=== PATIENT | male | born 1965 | race Caucasian/White ===

== ENCOUNTER 2016-07-22 15:53 | Inpatient (IN) | payer OTHER ==
[~2016-07-22] VITALS: Ht 193 cm; Wt 118.8 kg
[~2016-07-22 15:53] MED LIST: METH10TA PO
[2016-07-22 15:58] VITALS: BP 185/98; PULSE 88; RESP 22; TEMP 98.3
[2016-07-22] MEDS ORDERED: XANA1TAB2 PO (16:07)
[2016-07-22] MEDS ORDERED: METH10TA PO (16:07)
[2016-07-22] MEDS ORDERED: MORPHINE SULFATE 8 MG/ML INJ IV PUSH ONE (16:15)
[2016-07-22] MEDS ORDERED: ONDANSETRON HCL 4 MG/2 ML VIAL IV PUSH ONE (16:15)
[2016-07-22] MEDS ORDERED: SODIUM CHLORIDE 0.9% FLUSH 5 ML FLUSH IVF PRN ×2 (16:15→18:45)
[2016-07-22] MEDS ORDERED: PROPOFOL 1000 MG/100 ML BTL IV ONE (16:15)
--- NOTE | 2016-07-22 16:15 | PD ---
HPI Chief Complaint: Fall Time Seen by Provider: 16:00 Travel History International Travel<30 days: No Contact w/Intl Traveler<30days: No Traveled to known affect area: No History of Present Illness HPI 51-year-old male presents via EMS for evaluation after a fall. He reports that prior to arrival he was standing on the roof of his motorhome when he fell off of the roof, approximately 10-13 feet, landing on his back. He reports that he landed on some bricks. He denies loss of consciousness. He is complaining of severe pain in left ankle which is throbbing, constant, worse with movement. He also has pain in his mid back and neck and left rib cage. Denies pain in the arms or right leg. Denies loss of consciousness. He reports that morphine works well for pain. He received 10 mg of morphine prior to arrival. He has no other complaints. PFSH Past Medical History Arthritis: No Asthma: No Anxiety: Yes Depression: Yes Heart Rhythm Problems: No Cancer: No Cardiovascular Problems: No High Cholesterol: No Chest Pain: Yes Congestive Heart Failure: No COPD: Yes Cerebrovascular Accident: No Diminished Hearing: No Gastrointestinal Disorders: Yes GERD: Yes Genitourinary: Yes Headaches: No Hepatitis: Yes (HEP C) Hiatal Hernia: No Hypertension: Yes Kidney Stones: No Musculoskeletal: Yes Psychiatric: No Reproductive: No Respiratory: No Migraines: No Pancreatitis: Yes Renal Failure: Yes (R/T OVERDOSE) Seizures: Yes (PAST ALCOHOL/DRUG WITHDRAWL) Sleep Apnea: No Ulcer: No Tetanus Vaccination: < 5 Years PNEUMOCCOCAL Vaccine (Year): 2 Past Surgical History Surgical History: No Previous Surgery Other Surgery: No Social History Alcohol Use: Yes (LAST DRINK 2 DAYS AGO) Tobacco Use: Yes (1 PPD) Substance Use: Yes (on methadone) Allergies-Medications (Allergen,Severity, Reaction): Coded Allergies: No Known Allergies (Verified , 07/22/16) Reported Meds & Prescriptions Reported Meds & Active Scripts Active Reported Xanax (Alprazolam) 1 Mg Tab 1 Mg PO Q6H PRN Methadone (Methadone HCl) 10 Mg Tab 130 Mg PO DAILY Review of Systems Except as stated in HPI: all other systems reviewed are Neg Physical Exam Narrative GENERAL: Well-developed well-nourished male who appears uncomfortable. Cervical collar in place, laying on backboard. The patient was log rolled off the backboard using spinal precautions. SKIN: Warm and dry. There is an area of ecchymosis in the left flank region of the back. HEAD: Atraumatic. Normocephalic. EYES: Pupils equal and round. No scleral icterus. No injection or drainage. ENT: No nasal bleeding or discharge. Mucous membranes pink and moist. NECK: Trachea midline. No JVD. CARDIOVASCULAR: Regular rate and rhythm. No murmur appreciated. RESPIRATORY: No accessory muscle use. Clear to auscultation. Breath sounds equal bilaterally. GASTROINTESTINAL: Abdomen soft, non-tender, nondistended. Hepatic and splenic margins not palpable. MUSCULOSKELETAL: Obvious deformity to left ankle joint. There is tenderness to palpation along the neck and back. There is some tenderness to palpation to the left posterior rib cage. NEUROLOGICAL: Awake and alert. No obvious cranial nerve deficits. Motor grossly within normal limits. Normal speech. Data Data Last Documented VS Vital Signs Date Time Temp Pulse Resp B/P Pulse Ox O2 Delivery O2 Flow Rate FiO2 07/22/16 16:59 82 20 160/87 98 Nasal Cannula 2 07/22/16 15:58 98.3 Orders Ankle, Complete ([id number]) (07/22/16 ) Complete Blood Count With Diff (07/22/16 16:10) Prothrombin Time / Inr (Pt) (07/22/16 16:10) Act Partial Throm Time (Ptt) (07/22/16 16:10) Type And Screen (07/22/16 16:10) Chest, Single Ap (07/22/16 16:10) Pelvis, Ap Only (Routine) (07/22/16 16:10) Ct Brain W/O Iv Contrast(Rout) (07/22/16 16:10) Ct Cerv Spine W/O Contrast (07/22/16 16:10) Ct Abd/Pel W Iv Contrast(Rout) (07/22/16 16:10) Ct Thorax/ Chest W Iv Contrast (07/22/16 16:10) Ct Thor Spine W/O Contrast (07/22/16 16:10) Ct Lumb Spine W/O Contrast (07/22/16 16:10) Iv Access Insert/Monitor (07/22/16 16:10) Ecg Monitoring (07/22/16 16:10) Oximetry (07/22/16 16:10) Oxygen Administration (07/22/16 16:10) Sodium Chloride 0.9% Flush (Ns Flush) (07/22/16 16:15) Morphine Inj (Morphine Inj) (07/22/16 16:15) Ondansetron Inj (Zofran Inj) (07/22/16 16:15) Comprehensive Metabolic Panel (07/22/16 16:10) Propofol 1000 Mg/100 Ml Inj (Diprivan 10 (07/22/16 16:15) Ankle, Limited (Ap&Lat) (07/22/16 ) Splint Or Brace Apply/Monitor (07/22/16 16:49) Fiberglass Sugartong Sp Ad Sl (07/22/16 ) Ice Cuff (07/22/16 ) Fiberglass Short Leg Splint Ad (07/22/16 ) Admit Order (Ed Use Only) (07/22/16 18:37) Labs Laboratory Tests Test 07/22/16 16:00 White Blood Count 4.9 TH/MM3 Red Blood Count 4.34 MIL/MM3 Hemoglobin 14.7 GM/DL Hematocrit 42.1 % Mean Corpuscular Volume 97.0 FL Mean Corpuscular Hemoglobin 34.0 PG Mean Corpuscular Hemoglobin 35.0 % Concent Red Cell Distribution Width 13.7 % Platelet Count 84 TH/MM3 Mean Platelet Volume 7.1 FL Neutrophils (%) (Auto) 49.7 % Lymphocytes (%) (Auto) 35.5 % Monocytes (%) (Auto) 9.8 % Eosinophils (%) (Auto) 3.9 % Basophils (%) (Auto) 1.1 % Neutrophils # (Auto) 2.4 TH/MM3 Lymphocytes # (Auto) 1.7 TH/MM3 Monocytes # (Auto) 0.5 TH/MM3 Eosinophils # (Auto) 0.2 TH/MM3 Basophils # (Auto) 0.1 TH/MM3 CBC Comment AUTO DIFF Differential Comment AUTO DIFF CONFIRMED Platelet Estimate LOW Platelet Morphology Comment NORMAL Red Cell Morphology Comment NORMAL Prothrombin Time 13.4 SEC Prothromb Time International 1.2 RATIO Ratio Activated Partial 28.5 SEC Thromboplast Time Sodium Level 132 MEQ/L Potassium Level 3.6 MEQ/L Chloride Level 94 MEQ/L Carbon Dioxide Level 32.6 MEQ/L Anion Gap 5 MEQ/L Blood Urea Nitrogen 6 MG/DL Creatinine 0.70 MG/DL Estimat Glomerular Filtration 118 ML/MIN Rate Random Glucose 117 MG/DL Calcium Level 7.9 MG/DL Total Bilirubin 0.6 MG/DL Aspartate Amino Transf 78 U/L (AST/SGOT) Alanine Aminotransferase 66 U/L (ALT/SGPT) Alkaline Phosphatase 82 U/L Total Protein 8.1 GM/DL Albumin 3.1 GM/DL Blood Type O POSITIVE Antibody Screen NEGATIVE Blood Bank Comment MDM Medical Decision Making Medical Screen Exam Complete: Yes Emergency Medical Condition: Yes Medical Record Reviewed: Yes Interpretation(s) Left ankle x-ray reveals trimalleolar fracture/dislocation. Postreduction x- ray reveals improvement in alignment of the fracture. CT brain, cervical spine revealed no acute abnormalities Chest x-ray, pelvis x-ray revealed no acute abnormalities CT abdomen and pelvis CT thoracic spine CT thorax CT lumbar spine Differential Diagnosis Ankle fracture, dislocation, retroperitoneal hematoma, contusion, rib fracture, intra-abdominal organ injury, pneumothorax, hemothorax, spinal fracture, spinal cord injury Narrative Course 51-year-old male presents after falling off of a roof and landing on his back. He has an obvious fracture/dislocation to the left ankle. The fracture/ dislocation was reduced and postreduction x-ray reveals improvement in alignment of the fracture. He had good pulses and good sensation postreduction. On examination he does have an area of ecchymosis on the left flank region of the back. He also has some tenderness to palpation along the spine. Therefore CT imaging of the brain, cervical spine, thoracic spine, lumbar spine, thorax and abdomen and pelvis have been ordered. Imaging studies reveal left 11th posterior rib fracture, transverse process fractures L2 and L3. The patient was admitted to the trauma service with consultation to the orthopedist Dr. Roe. Diagnosis Primary Impression: Fx lumbar vertebra-closed Qualified Code: S32.029A - Closed fracture of second lumbar vertebra, unspecified fracture morphology, initial encounter Additional Impressions: Closed left ankle fracture Qualified Code: S82.892A - Closed left ankle fracture, initial encounter Rib fracture Qualified Code: S22.32XA - Closed fracture of one rib of left side, initial encounter Admitting Information Admitting Physician Requests: Admit Cayden Bustos Jul 22, 2016 16:15
[2016-07-22 16:32] LABS: AUTOMATED NEUTROPHIL # 2.4 TH/MM3 (1.8-7.7); BASOPHIL # 0.1 TH/MM3 (0-0.2); BASOPHIL % 1.1 % (0.0-2.0); EOSINOPHIL # 0.2 TH/MM3 (0-0.4); EOSINOPHIL % 3.9 % (0.0-4.0); HEMATOCRIT 42.1 % (39.0-51.0); LYMPH % 35.5 % (9.0-44.0); LYMPHOCYTE # 1.7 TH/MM3 (1.0-4.8); MONO % 9.8 % (0.0-8.0); NEUT % 49.7 % (16.0-70.0); PLATELET COUNT 84 TH/MM3 (150-450); RED BLOOD COUNT 4.34 MIL/MM3 (4.50-5.90); RED CELL DISTRIBUTION WIDTH 13.7 % (11.6-17.2); WHITE BLOOD COUNT 4.9 TH/MM3 (4.0-11.0)
[2016-07-22 16:35] LABS: HEMO FLAGS AUTO DIFF
[2016-07-22 16:41] LABS: APTT (PATIENT) 28.5 SEC (24.3-30.1); INTERNATIONAL NORMALIZED RATIO 1.2 RATIO; PROTHROMBIN TIME - PATIENT 13.4 SEC (9.8-11.6)
[2016-07-22 16:45] VITALS: O2SAT 98
[2016-07-22 16:55] LABS: ALT (GPT) 66 U/L (12-78); ANION GAP 5 MEQ/L (5-15); AST (GOT) 78 U/L (15-37); BICARBONATE 32.6 MEQ/L (21.0-32.0); BLOOD UREA NITROGEN 6 MG/DL (7-18); CHLORIDE 94 MEQ/L (98-107); GLOMERULAR FILTRATION RATE 118 ML/MIN (>89); POTASSIUM 3.6 MEQ/L (3.5-5.1); SODIUM (NA) 132 MEQ/L (136-145)
[2016-07-22 16:57] LABS: ALKALINE PHOSPHATASE 82 U/L (45-117); TOTAL BILIRUBIN ADULT 0.6 MG/DL (0.2-1.0)
[2016-07-22 16:59] VITALS: BP 160/87; PULSE 82; RESP 20; O2SAT 98
[2016-07-22 17:07] LABS: PLATELET ESTIMATE SMEAR LOW (NORMAL); PLATELET MORPHOLOGY NORMAL (NORMAL); SCAN/DIFF AUTO DIFF CONFIRMED
--- NOTE | 2016-07-22 17:07 | PD ---
Data Data Last Documented VS Vital Signs Date Time Temp Pulse Resp B/P Pulse Ox O2 Delivery O2 Flow Rate FiO2 07/22/16 16:59 82 20 160/87 98 Nasal Cannula 2 07/22/16 15:58 98.3 Orders Ankle, Complete ([id number]) (07/22/16 ) Complete Blood Count With Diff (07/22/16 16:10) Prothrombin Time / Inr (Pt) (07/22/16 16:10) Act Partial Throm Time (Ptt) (07/22/16 16:10) Type And Screen (07/22/16 16:10) Chest, Single Ap (07/22/16 16:10) Pelvis, Ap Only (Routine) (07/22/16 16:10) Ct Brain W/O Iv Contrast(Rout) (07/22/16 16:10) Ct Cerv Spine W/O Contrast (07/22/16 16:10) Ct Abd/Pel W Iv Contrast(Rout) (07/22/16 16:10) Ct Thorax/ Chest W Iv Contrast (07/22/16 16:10) Ct Thor Spine W/O Contrast (07/22/16 16:10) Ct Lumb Spine W/O Contrast (07/22/16 16:10) Iv Access Insert/Monitor (07/22/16 16:10) Ecg Monitoring (07/22/16 16:10) Oximetry (07/22/16 16:10) Oxygen Administration (07/22/16 16:10) Sodium Chloride 0.9% Flush (Ns Flush) (07/22/16 16:15) Morphine Inj (Morphine Inj) (07/22/16 16:15) Ondansetron Inj (Zofran Inj) (07/22/16 16:15) Comprehensive Metabolic Panel (07/22/16 16:10) Propofol 1000 Mg/100 Ml Inj (Diprivan 10 (07/22/16 16:15) Ankle, Limited (Ap&Lat) (07/22/16 ) Splint Or Brace Apply/Monitor (07/22/16 16:49) Fiberglass Sugartong Sp Ad Sl (07/22/16 ) Ice Cuff (07/22/16 ) Fiberglass Short Leg Splint Ad (07/22/16 ) Admit Order (Ed Use Only) (07/22/16 18:37) Labs Laboratory Tests Test 07/22/16 16:00 White Blood Count 4.9 TH/MM3 Red Blood Count 4.34 MIL/MM3 Hemoglobin 14.7 GM/DL Hematocrit 42.1 % Mean Corpuscular Volume 97.0 FL Mean Corpuscular Hemoglobin 34.0 PG Mean Corpuscular Hemoglobin 35.0 % Concent Red Cell Distribution Width 13.7 % Platelet Count 84 TH/MM3 Mean Platelet Volume 7.1 FL Neutrophils (%) (Auto) 49.7 % Lymphocytes (%) (Auto) 35.5 % Monocytes (%) (Auto) 9.8 % Eosinophils (%) (Auto) 3.9 % Basophils (%) (Auto) 1.1 % Neutrophils # (Auto) 2.4 TH/MM3 Lymphocytes # (Auto) 1.7 TH/MM3 Monocytes # (Auto) 0.5 TH/MM3 Eosinophils # (Auto) 0.2 TH/MM3 Basophils # (Auto) 0.1 TH/MM3 CBC Comment AUTO DIFF Differential Comment AUTO DIFF CONFIRMED Platelet Estimate LOW Platelet Morphology Comment NORMAL Red Cell Morphology Comment NORMAL Prothrombin Time 13.4 SEC Prothromb Time International 1.2 RATIO Ratio Activated Partial 28.5 SEC Thromboplast Time Sodium Level 132 MEQ/L Potassium Level 3.6 MEQ/L Chloride Level 94 MEQ/L Carbon Dioxide Level 32.6 MEQ/L Anion Gap 5 MEQ/L Blood Urea Nitrogen 6 MG/DL Creatinine 0.70 MG/DL Estimat Glomerular Filtration 118 ML/MIN Rate Random Glucose 117 MG/DL Calcium Level 7.9 MG/DL Total Bilirubin 0.6 MG/DL Aspartate Amino Transf 78 U/L (AST/SGOT) Alanine Aminotransferase 66 U/L (ALT/SGPT) Alkaline Phosphatase 82 U/L Total Protein 8.1 GM/DL Albumin 3.1 GM/DL Blood Type O POSITIVE Antibody Screen NEGATIVE Blood Bank Comment [facility] Supervised Visit with ADALI: Yes Procedures Procedure Narrative Moderate Sedation After the risks and benefits are discussed for the left ankle reduction, sedation was performed. The patient was placed on a athletic monitor and pulse oximetry. An Ambu bag dissection was immediately available at bedside. The patient was monitored by the nurse. Oxygen saturation, heart rate and blood pressure monitored. Procedural sedation was achieved using 100 mg of propofol. The patient was observed until awake and alert. Procedural sedation time in attendance was 15 minutes. Deborah aZman DO Jul 22, 2016 17:07
[2016-07-22] MEDS ORDERED: IOHEXOL 350 MG/ML 10 ML VIAL (for RAD DIAG) IV ONE (17:40)
--- NOTE | 2016-07-22 17:44 | RADRPT ---
EXAM DATE/TIME: 07/22/2016 16:13 [facility] COMPARISON: No previous studies available for comparison. INDICATIONS : Left Ankle Deformation and Pain after fall from roof. MEDICAL HISTORY : Unobtainable. SURGICAL HISTORY : Unobtainable. ENCOUNTER: Initial ACUITY: 1 day PAIN SCORE: Non-responsive. LOCATION: Left Ankle. FINDINGS: Three view exam was performed of the left ankle. There is medial dislocation of the distal tibia at t he tibiotalar joint with fractures through the medial malleolus, lateral malleolus and posterior mall eolus region. CONCLUSION: 1. Trimalleolar fracture dislocation of the left ankle. Rohit Manning MD on July 22, 2016 at 17:42 Board Certified Radiologist. This report was verified electronically.
--- NOTE | 2016-07-22 17:45 | RADRPT ---
EXAM DATE/TIME: 07/22/2016 16:20 [facility] COMPARISON: No previous studies available for comparison. INDICATIONS : Evaluate for Pelvis injury after fall from roof. MEDICAL HISTORY : Unobtainable. SURGICAL HISTORY : Unobtainable. ENCOUNTER: Initial ACUITY: 1 day PAIN SCORE: Non-responsive. LOCATION: Bilateral Pelvis. FINDINGS: A single frontal view of the pelvis demonstrates no evidence of fracture. The bony pelvic ring is in tact. Bony mineralization is normal. The soft tissues are intact. CONCLUSION: Normal examination for a patient of this age. Rohit Manning MD on July 22, 2016 at 17:43 Board Certified Radiologist. This report was verified electronically.
--- NOTE | 2016-07-22 17:45 | RADRPT ---
EXAM DATE/TIME: 07/22/2016 16:31 [facility] COMPARISON: No previous studies available for comparison. INDICATIONS : Evaluate for Chest Injury after fall from roof. MEDICAL HISTORY : Unobtainable. SURGICAL HISTORY : Unobtainable. ENCOUNTER: Initial ACUITY: 1 day PAIN SCORE: Non-responsive. LOCATION: Bilateral chest FINDINGS: A single view of the chest demonstrates the lungs to be symmetrically aerated without evidence of mas s, infiltrate or effusion. The cardiomediastinal contours are unremarkable. Osseous structures are intact. CONCLUSION: Normal examination for a patient of this age. Rohit Manning MD on July 22, 2016 at 17:44 Board Certified Radiologist. This report was verified electronically.
--- NOTE | 2016-07-22 17:57 | RADRPT ---
EXAM DATE/TIME: 07/22/2016 16:58 [facility] COMPARISON: No previous studies available for comparison. INDICATIONS : Post reduction of left ankle. MEDICAL HISTORY : None. SURGICAL HISTORY : None. ENCOUNTER: Initial ACUITY: 1 day PAIN SCORE: 10/10 LOCATION: Bilateral left ankle. FINDINGS: There is partial reduction of the previous dislocation. The medial joint remains abnormally widened a nd there is residual subluxation medially and anteriorly. CONCLUSION: 1. Improvement in alignment at the trimalleolar fracture dislocation as above. Rohit Manning MD on July 22, 2016 at 17:54 Board Certified Radiologist. This report was verified electronically.
--- NOTE | 2016-07-22 18:12 | RADRPT ---
EXAM DATE/TIME: 07/22/2016 17:34 [facility] COMPARISON: No previous studies available for comparison. INDICATIONS : Trauma. Fell 12-15 feet. RADIATION DOSE: 68.28 CTDIvol (mGy) MEDICAL HISTORY : Seizures. Chronic obstructive pulmonary disease. Pancreatitis.Renal failure. Hep C. Hypertension. SURGICAL HISTORY : None. ENCOUNTER: Initial ACUITY: 1 day PAIN SCALE: 4/10 LOCATION: cranial TECHNIQUE: Multiple contiguous axial images were obtained of the head. Using automated exposure control and adj ustment of the mA and/or kV according to patient size, radiation dose was kept as low as reasonably a chievable to obtain optimal diagnostic quality images. FINDINGS: CEREBRUM: The ventricles are normal for age. No evidence of midline shift, mass lesion, hemorrhage or acute in farction. No extra-axial fluid collections are seen. POSTERIOR FOSSA: The cerebellum and brainstem are intact. The 4th ventricle is midline. The cerebellopontine angle i s unremarkable. EXTRACRANIAL: The visualized portion of the orbits is intact. SKULL: The calvaria is intact. No evidence of skull fracture. CONCLUSION: Normal examination for a patient of this age. Rohit Manning MD on July 22, 2016 at 18:10 Board Certified Radiologist. This report was verified electronically.
--- NOTE | 2016-07-22 18:14 | RADRPT ---
EXAM DATE/TIME: 07/22/2016 17:34 [facility] COMPARISON: No previous studies available for comparison. INDICATIONS : Trauma. Fell 12-15 feet. RADIATION DOSE: 19.68 CTDIvol (mGy) MEDICAL HISTORY : Chronic obstructive pulmonary disease. Seizures. Gastroesophageal reflux disease.Hypertension. Hep C . Pancreatitis. SURGICAL HISTORY : None. ENCOUNTER: Initial ACUITY: 1 day PAIN SCALE: 4/10 LOCATION: neck TECHNIQUE: Volumetric scanning of the cervical spine was performed. Multiplanar reconstructions in the sagittal, coronal and oblique axial planes were performed. Using automated exposure control and adjustment o f the mA and/or kV according to patient size, radiation dose was kept as low as reasonably achievable to obtain optimal diagnostic quality images. FINDINGS: No acute fracture or spondylolisthesis. Moderate degenerative disc disease present. No significant aung ny canal stenosis. Mild facet arthropathy. CONCLUSION: 1. Moderate degenerative change. No acute bony abnormalities. Rohit Manning MD on July 22, 2016 at 18:11 Board Certified Radiologist. This report was verified electronically.
--- NOTE | 2016-07-22 18:35 | HHI.HP ---
[facility] Service Critical Care Medicine Primary Care Physician No Primary Care Physician Admission Diagnosis Diagnosis: Chief Complaint: Back pain, left ankle pain Travel History International Travel<30 Days: No Contact w/Intl Traveler <30 Da: No Traveled to Known Affected Are: No History of Present Illness 51-year-old gentleman was working on his mother's roof when he fell. 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 He was worked up in the emergency department and found to have left bimalleolar fracture and left posterior rib fractures without hemothorax or pneumothorax. His only significant past medical history is OxyContin abuse for which she is on 130 of methadone daily. He also takes Xanax he says it's in order to wean him off of alcohol. Review of Systems Constitutional: DENIES: Diaphoretic episodes, Fatigue, Fever, Weight gain, Weight loss, Chills, Dizziness, Change in appetite, Night Sweats Endocrine: DENIES: Heat/cold intolerance, Polydipsia, Polyuria, Polyphagia Eyes: DENIES: Blurred vision, Diplopia, Eye inflammation, Eye pain, Vision loss , Photosensitivity, Double Vision Ears, nose, mouth, throat: DENIES: Tinnitus, Hearing loss, Vertigo, Nasal discharge, Oral lesions, Throat pain, Hoarseness, Ear Pain, Running Nose, Epistaxis, Sinus Pain, Toothache, Odynophagia Respiratory: DENIES: Apneas, Cough, Snoring, Wheezing, Hemoptysis, Sputum production, Shortness of breath Cardiovascular: DENIES: Chest pain, Palpitations, Syncope, Dyspnea on Exertion , PND, Lower Extremity Edema, Orthopnea, Claudication Gastrointestinal: COMPLAINS OF: Abdominal pain (left upper quadrant) Genitourinary: DENIES: Sexual dysfunction, Urinary frequency, Urinary incontinence, Urgency, Hematuria, Dysuria, Nocturia, Penile Discharge, Testicular Pain, Testicular Swelling Musculoskeletal: COMPLAINS OF: Joint pain (left ankle), DENIES: Muscle aches, Stiffness, Joint Swelling, Back pain, Neck pain Hematologic/lymphatic: COMPLAINS OF: Bruising Immunologic/allergic: DENIES: Eczema, Urticaria Neurologic: DENIES: Abnormal gait, Headache, Localized weakness, Paresthesias, Seizures, Speech Problems, Tremor, Poor Balance Psychiatric: DENIES: Anxiety, Confusion, Mood changes, Depression, Hallucinations, Agitation, Suicidal Ideation, Homicidal Ideation, Delusions Past Family Social History Allergies: Coded Allergies: No Known Allergies (Verified , 07/22/16) Past Medical History Patient denies Past Surgical History Patient denies Reported Medications Reported Xanax (Alprazolam) 1 Mg Tab 1 Mg PO Q6H PRN Methadone (Methadone HCl) 10 Mg Tab 130 Mg PO DAILY Family History Reviewed and not relevant Physical Exam Vital Signs Vital Signs Date Time Temp Pulse Resp B/P Pulse Ox O2 Delivery O2 Flow Rate FiO2 07/22/16 16:59 82 20 160/87 98 Nasal Cannula 2 07/22/16 16:45 98 Nasal Cannula 4.00 07/22/16 16:45 98 4.00 07/22/16 16:27 97 Room Air 07/22/16 16:27 Nasal Cannula 2 07/22/16 15:58 98.3 88 22 185/98 Physical Exam Alert and oriented in no acute distress Guy Coma Scale 15 Head-atraumatic normocephalic pupils equal round reactive to light, extraocular movements intact Neck-soft trachea midline no cervical tenderness to deep palpation, he does have soreness along the musculature Chest-clear to auscultation bilaterally, regular rate and rhythm, tenderness to palpation of the left chest wall no bony crepitus, left posterior chest wall bruise Heart-regular rate and rhythm Abdomen-soft distended, nontender Pelvis-stable, nontender, femoral pulses palpable bilaterally Extremities-palpable dorsalis pedis pulse on the right left lower extremity is splinted, upper extremities are atraumatic with palpable radial pulses Psych-patient appears a little anxious otherwise mood and affect are appropriate Neurologic-cranial nerves II through XII appear grossly intact Laboratory Laboratory Tests Test 07/22/16 16:00 White Blood Count 4.9 Red Blood Count 4.34 Hemoglobin 14.7 Hematocrit 42.1 Mean Corpuscular Volume 97.0 Mean Corpuscular Hemoglobin 34.0 Mean Corpuscular Hemoglobin 35.0 Concent Red Cell Distribution Width 13.7 Platelet Count 84 Mean Platelet Volume 7.1 Neutrophils (%) (Auto) 49.7 Lymphocytes (%) (Auto) 35.5 Monocytes (%) (Auto) 9.8 Eosinophils (%) (Auto) 3.9 Basophils (%) (Auto) 1.1 Neutrophils # (Auto) 2.4 Lymphocytes # (Auto) 1.7 Monocytes # (Auto) 0.5 Eosinophils # (Auto) 0.2 Basophils # (Auto) 0.1 CBC Comment AUTO DIFF Differential Comment AUTO DIFF CONFIRMED Platelet Estimate LOW Platelet Morphology Comment NORMAL Red Cell Morphology Comment NORMAL Prothrombin Time 13.4 Prothromb Time International 1.2 Ratio Activated Partial 28.5 Thromboplast Time Sodium Level 132 Potassium Level 3.6 Chloride Level 94 Carbon Dioxide Level 32.6 Anion Gap 5 Blood Urea Nitrogen 6 Creatinine 0.70 Estimat Glomerular Filtration 118 Rate Random Glucose 117 Calcium Level 7.9 Total Bilirubin 0.6 Aspartate Amino Transf 78 (AST/SGOT) Alanine Aminotransferase 66 (ALT/SGPT) Alkaline Phosphatase 82 Total Protein 8.1 Albumin 3.1 Blood Type O POSITIVE Antibody Screen NEGATIVE Blood Bank Comment Result Diagram: 07/22/16 1600 07/22/16 1600 Imaging Last Impressions Pelvis X-Ray 07/22/[id number] Signed Impressions: Service Date/Time: Friday, July 22, 2016 16:20 - CONCLUSION: Normal examination for a patient of this age. Rohit Manning MD Head CT [id number]/22/[id number] Signed Impressions: Service Date/Time: Friday, July 22, 2016 17:34 - CONCLUSION: Normal examination for a patient of this age. Rohit Manning MD Chest X-Ray [id number]/22/[id number] Signed Impressions: Service Date/Time: Friday, July 22, 2016 16:31 - CONCLUSION: Normal examination for a patient of this age. Rohit Manning MD Cervical Spine CT [id number]/22/[id number] Signed Impressions: Service Date/Time: Friday, July 22, 2016 17:34 - CONCLUSION: 1. Moderate degenerative change. No acute bony abnormalities. Rohit Manning MD Ankle X-Ray 07/22/16 0000 Signed Impressions: Service Date/Time: Friday, July 22, 2016 16:58 - CONCLUSION: 1. Improvement in alignment at the trimalleolar fracture dislocation as above. Rohit Manning MD Assessment and Plan Assessment and Plan Trimalleolar fracture of the left lower extremity with left posterior rib fractures -Admit to trauma service for pain control -Orthopedic surgery consult -Patient would rather take his scheduled methadone in the morning in lieu of pain medication -Aggressive pulmonary toilet -Physical therapy consult Angel Barnes MD Jul 22, 2016 18:35
--- NOTE | 2016-07-22 18:36 | RADRPT ---
EXAM DATE/TIME: 07/22/2016 17:40 [facility] COMPARISON: No previous studies available for comparison. INDICATIONS : Trauma; fall. IV CONTRAST: 95 cc Omnipaque 350 (iohexol) IV ; Cumulative dose for multiple exams. RADIATION DOSE: 19.50 CTDIvol (mGy) ; Combined studies - Thorax/Abdomen/Pelvis MEDICAL HISTORY : Hypertension. Chronic obstructive pulmonary disease. Hepatitis C.GERD, pancreatitis, seizures SURGICAL HISTORY : None. ENCOUNTER: Initial ACUITY: 1 day PAIN SCALE: 7/10 LOCATION: chest TECHNIQUE: Volumetric scanning of the chest was performed. Using automated exposure control and adjustment of t he mA and/or kV according to patient size, radiation dose was kept as low as reasonably achievable to obtain optimal diagnostic quality images. FINDINGS: Mild emphysema noted in the upper lungs, probably paraseptal. There is dependent groundglass opacity in both lungs, possibly dependent atelectasis or some mild inflammatory changes. No pleural or perica rdial effusion. Negative for mediastinal hematoma or traumatic aortic injury. Mild coronary calcifica tions. No acute findings in the upper abdomen. There is a left 11th rib fracture with a small adjacent hematoma. CONCLUSION: Left 11th rib fracture with small adjacent hematoma. No pneumothorax. Dependent groundglass opacity i n the lungs, likely mostly atelectasis. Mild emphysema. Rohit Manning MD on July 22, 2016 at 18:30 Board Certified Radiologist. This report was verified electronically.
--- NOTE | 2016-07-22 18:39 | RADRPT ---
EXAM DATE/TIME: 07/22/2016 17:40 [facility] COMPARISON: No previous studies available for comparison. INDICATIONS : Trauma. Fell 12-15 feet. IV CONTRAST: 100 cc Omnipaque 350 (iohexol) IV ; Cumulative dose for multiple exams. ORAL CONTRAST: No oral contrast ingested. RADIATION DOSE: 19.50 CTDIvol (mGy) ; Combined studies - Thorax/Abdomen/Pelvis MEDICAL HISTORY : Renal failure, chronic. Seizures. Chronic obstructive pulmonary disease.Hypertension. Pancreatitis. Hep C. SURGICAL HISTORY : None. ENCOUNTER: Initial ACUITY: 1 day PAIN SCALE: 6/10 LOCATION: Abdomen TECHNIQUE: Volumetric scanning of the abdomen and pelvis was performed. Using automated exposure control and ad justment of the mA and/or kV according to patient size, radiation dose was kept as low as reasonably achievable to obtain optimal diagnostic quality images. FINDINGS: There is a fracture of the left 11th rib and the relatively nondisplaced fractures of the left transv erse process of L2 and L3. No other fractures identified. No significant abnormality identified in the liver, spleen, adrenals, kidneys or pancreas. No calcifi ed gallstones are seen. There is no free fluid. No retroperitoneal hemorrhage. No free air. CONCLUSION: 1. Fractures of the left 11th rib and left transverse process of L2 and L3. No solid visceral injury identified within the abdomen. No free fluid or free air. Rohit Manning MD on July 22, 2016 at 18:35 Board Certified Radiologist. This report was verified electronically.
--- NOTE | 2016-07-22 18:41 | RADRPT ---
EXAM DATE/TIME: 07/22/2016 17:40 [facility] COMPARISON: No previous studies available for comparison. INDICATIONS : Trauma; fall. RADIATION DOSE: CTDIvol (mGy) ; Reconstructed from previous dataset MEDICAL HISTORY : Chronic obstructive pulmonary disease. Hypertension. Hepatitis C.renal failure, pancreatitis SURGICAL HISTORY : None. ENCOUNTER: Initial ACUITY: 1 day PAIN SCALE: 6/10 LOCATION: upper back TECHNIQUE: Volumetric scanning of the thoracic spine was performed. Multiplanar reconstructions in the sagittal , coronal and oblique axial planes were performed. Using automated exposure control and adjustment o f the mA and/or kV according to patient size, radiation dose was kept as low as reasonably achievable to obtain optimal diagnostic quality images. FINDINGS: There is an acute fracture or spondylolisthesis. No significant bony canal stenosis. Incidental note made of left 11th rib fracture. Moderate degenerative disc disease. CONCLUSION: 1. No acute fracture within the thoracic spine. Left 11th rib fracture. No canal stenosis. Schmorl's node inferior endplate T9. Rohit Manning MD on July 22, 2016 at 18:37 Board Certified Radiologist. This report was verified electronically.
--- NOTE | 2016-07-22 18:44 | RADRPT ---
EXAM DATE/TIME: 07/22/2016 17:40 [facility] COMPARISON: No previous studies available for comparison. INDICATIONS : Trauma; fall. RADIATION DOSE: CTDIvol (mGy) ; Reconstructed from previous dataset MEDICAL HISTORY : Chronic obstructive pulmonary disease. Hypertension. Hepatitis C.pancreatitis, renal failure, seizure s SURGICAL HISTORY : None. ENCOUNTER: Initial ACUITY: 1 day PAIN SCALE: 6/10 LOCATION: lower back TECHNIQUE: Volumetric scanning of the lumbar spine was performed. Multiplanar reconstructions in the sagittal, coronal and oblique axial planes were performed. Using automated exposure control and adjustment of the mA and/or kV according to patient size, radiation dose was kept as low as reasonably achievable t o obtain optimal diagnostic quality images. FINDINGS: There is a left 11th rib fracture and transverse process fractures on the left of L1 and L2. No verte bral body fractures identified. There is advanced degenerative disc disease at L4-5 with a minimal re trolisthesis. There is a mild central canal stenosis at L4-5. No significant stenosis in the remainde r of the lumbar spine. CONCLUSION: 1. Fractures of the left 11th rib and left transverse processes of L2 and L3. No vertebral body fract ures. Advanced degenerative disc disease at L4-5. Rohit Manning MD on July 22, 2016 at 18:40 Board Certified Radiologist. This report was verified electronically.
[2016-07-22] MEDS ORDERED: ONDANSETRON HCL 4 MG/2 ML VIAL IV PRN (18:45)
[2016-07-22] MEDS ORDERED: MISCELLANEOUS NURSING INFORMATION XX SCH (18:45)
[2016-07-22] MEDS ORDERED: CHLORHEXIDINE GLUCONATE 2 % 1 PACK (2 CLOTHS) TOP PRN (18:45)
[2016-07-22] MEDS ORDERED: ACETAMINOPHEN 325 MG TAB PO PRN (18:45)
[2016-07-22] MEDS ORDERED: MAGNESIUM HYDROXIDE SUSP 30 ML CUP PO PRN (18:45)
[2016-07-22 19:19] VITALS: BP 151/89; PULSE 87; RESP 16; O2SAT 96
--- NOTE | 2016-07-22 19:36 | PD ---
Data Data Last Documented VS Vital Signs Date Time Temp Pulse Resp B/P Pulse Ox O2 Delivery O2 Flow Rate FiO2 07/22/16 16:59 82 20 160/87 98 Nasal Cannula 2 07/22/16 15:58 98.3 Orders Ankle, Complete ([id number]) (07/22/16 ) Complete Blood Count With Diff (07/22/16 16:10) Prothrombin Time / Inr (Pt) (07/22/16 16:10) Act Partial Throm Time (Ptt) (07/22/16 16:10) Type And Screen (07/22/16 16:10) Chest, Single Ap (07/22/16 16:10) Pelvis, Ap Only (Routine) (07/22/16 16:10) Ct Brain W/O Iv Contrast(Rout) (07/22/16 16:10) Ct Cerv Spine W/O Contrast (07/22/16 16:10) Ct Abd/Pel W Iv Contrast(Rout) (07/22/16 16:10) Ct Thorax/ Chest W Iv Contrast (07/22/16 16:10) Ct Thor Spine W/O Contrast (07/22/16 16:10) Ct Lumb Spine W/O Contrast (07/22/16 16:10) Iv Access Insert/Monitor (07/22/16 16:10) Ecg Monitoring (07/22/16 16:10) Oximetry (07/22/16 16:10) Oxygen Administration (07/22/16 16:10) Sodium Chloride 0.9% Flush (Ns Flush) (07/22/16 16:15) Morphine Inj (Morphine Inj) (07/22/16 16:15) Ondansetron Inj (Zofran Inj) (07/22/16 16:15) Comprehensive Metabolic Panel (07/22/16 16:10) Propofol 1000 Mg/100 Ml Inj (Diprivan 10 (07/22/16 16:15) Ankle, Limited (Ap&Lat) (07/22/16 ) Splint Or Brace Apply/Monitor (07/22/16 16:49) Fiberglass Sugartong Sp Ad Sl (07/22/16 ) Ice Cuff (07/22/16 ) Fiberglass Short Leg Splint Ad (07/22/16 ) Admit Order (Ed Use Only) (07/22/16 18:37) Labs Laboratory Tests Test 07/22/16 16:00 White Blood Count 4.9 TH/MM3 Red Blood Count 4.34 MIL/MM3 Hemoglobin 14.7 GM/DL Hematocrit 42.1 % Mean Corpuscular Volume 97.0 FL Mean Corpuscular Hemoglobin 34.0 PG Mean Corpuscular Hemoglobin 35.0 % Concent Red Cell Distribution Width 13.7 % Platelet Count 84 TH/MM3 Mean Platelet Volume 7.1 FL Neutrophils (%) (Auto) 49.7 % Lymphocytes (%) (Auto) 35.5 % Monocytes (%) (Auto) 9.8 % Eosinophils (%) (Auto) 3.9 % Basophils (%) (Auto) 1.1 % Neutrophils # (Auto) 2.4 TH/MM3 Lymphocytes # (Auto) 1.7 TH/MM3 Monocytes # (Auto) 0.5 TH/MM3 Eosinophils # (Auto) 0.2 TH/MM3 Basophils # (Auto) 0.1 TH/MM3 CBC Comment AUTO DIFF Differential Comment AUTO DIFF CONFIRMED Platelet Estimate LOW Platelet Morphology Comment NORMAL Red Cell Morphology Comment NORMAL Prothrombin Time 13.4 SEC Prothromb Time International 1.2 RATIO Ratio Activated Partial 28.5 SEC Thromboplast Time Sodium Level 132 MEQ/L Potassium Level 3.6 MEQ/L Chloride Level 94 MEQ/L Carbon Dioxide Level 32.6 MEQ/L Anion Gap 5 MEQ/L Blood Urea Nitrogen 6 MG/DL Creatinine 0.70 MG/DL Estimat Glomerular Filtration 118 ML/MIN Rate Random Glucose 117 MG/DL Calcium Level 7.9 MG/DL Total Bilirubin 0.6 MG/DL Aspartate Amino Transf 78 U/L (AST/SGOT) Alanine Aminotransferase 66 U/L (ALT/SGPT) Alkaline Phosphatase 82 U/L Total Protein 8.1 GM/DL Albumin 3.1 GM/DL Blood Type O POSITIVE Antibody Screen NEGATIVE Blood Bank Comment [facility] Supervised Visit with ADALI: Yes Narrative Course The history, exam, and medical decision-making in the associated midlevel provider note were completed with my assistance. I reviewed and agree with the findings presented. I attest that I had a [id number] encounter with the patient on the same day, and personally performed and documented my assessment and findings in the medical record. *My assessment and Findings: This is a 51-year-old male who presents to the emergency department having fallen off of a roof. He has a transverse process tractors of L2-L3, a rib fracture, and a trimalleolar fracture which was reduced in the emergency department. Patient will be admitted for surgical management of his ankle. I spoke to Dr. Del Cid and Dr. Marc who admitted the patient. Procedures Procedure Narrative Left ankle dislocation reduction: The left ankle was dislocated with skin tenting. It was reduced with traction countertraction. The lower extremity was neurovascularly intact with normal capillary refill and a strong pulse following reduction. He was placed in a splint. Patient tolerated the procedure well. Diagnosis Primary Impression: Fx lumbar vertebra-closed Qualified Code: S32.029A - Closed fracture of second lumbar vertebra, unspecified fracture morphology, initial encounter Additional Impressions: Closed left ankle fracture Qualified Code: S82.892A - Closed left ankle fracture, initial encounter Rib fracture Qualified Code: S22.32XA - Closed fracture of one rib of left side, initial encounter Admitting Information Admitting Physician Requests: Admit Mckayla Bustamante MD Jul 22, 2016 19:35
[2016-07-22 20:06] VITALS: O2SAT 96
[2016-07-22 21:00] VITALS: BP 158/90; PULSE 86; RESP 19; TEMP 98.7; O2SAT 94
[2016-07-22] MEDS: ENOXAPARIN SODIUM 30 MG/0.3 ML SYRINGE SQ SCH ×2 (21:00→21:31)
[2016-07-22] MEDS: ENALAPRILAT 1.25 MG/ML VIAL IV PRN (21:28)
[2016-07-22] MEDS: DOCUSATE SODIUM 100 MG CAP PO SCH (21:31)
[2016-07-22] MEDS: KETOROLAC TROMETHAMINE 30 MG/ML (IVP) VIAL IVP PRN (21:31)
[2016-07-22] MEDS ORDERED: LACTATED RINGER'S 1000 ML IV SCH (22:45)
[2016-07-22] MEDS ORDERED: INSULIN HUMAN REGULAR 1,000 UNITS/10 ML VIAL SQ PRN (22:45)
[2016-07-22] MEDS ORDERED: METOPROLOL TARTRATE 25 MG TAB PO PRN (22:45)
[2016-07-22] MEDS: SODIUM CHLORID 0.9% 500 ML IV SCH (22:45)
[2016-07-23] VITALS (7 sets, daily range): BP systolic 138–167; BP diastolic 83–104; PULSE 72–88; RESP 16–19; TEMP 97.3–99.1; O2SAT 95–96
[2016-07-23] MEDS ORDERED: MORPHINE SULFATE ORAL SOLN 10 MG/0.5 ML SYRINGE PO PRN (02:45)
[2016-07-23] MEDS ORDERED: CHLORHEXIDINE GLUCONATE 2 % 1 PACK (2 CLOTHS) TOP SCH (04:00)
[2016-07-23] MEDS: METHADONE HCL 10 MG TAB PO SCH ×2 (05:53→06:59)
[2016-07-23] MEDS: ENOXAPARIN SODIUM 30 MG/0.3 ML SYRINGE SQ SCH (07:09)
--- NOTE | 2016-07-23 07:55 | RADRPT ---
EXAM DATE/TIME: 07/23/2016 07:23 [facility] COMPARISON: CHEST SINGLE AP, July 22, 2016, 16:31. INDICATIONS : Pain from fall off of a roof. MEDICAL HISTORY : None. SURGICAL HISTORY : None. ENCOUNTER: Initial ACUITY: 2 days PAIN SCORE: 5/10 LOCATION: Bilateral chest FINDINGS: A single view of the chest demonstrates the lungs to be symmetrically aerated without evidence of mas s, infiltrate or effusion. The cardiomediastinal contours are unremarkable. Osseous structures are intact. CONCLUSION: No acute disease. Benny Jolly MD on July 23, 2016 at 7:52 Board Certified Radiologist. This report was verified electronically.
[2016-07-23 08:06] LABS: AUTOMATED NEUTROPHIL # 2.1 TH/MM3 (1.8-7.7); EOSINOPHIL # 0.1 TH/MM3 (0-0.4); EOSINOPHIL % 3.5 % (0.0-4.0); HEMATOCRIT 39.8 % (39.0-51.0); LYMPH % 30.5 % (9.0-44.0); LYMPHOCYTE # 1.2 TH/MM3 (1.0-4.8); MEAN CORPUSCULAR HEMOGLOBIN 33.8 PG (27.0-34.0); MEAN CORPUSCULAR HGB CONC 34.8 % (32.0-36.0); MONO % 11.4 % (0.0-8.0); NEUT % 53.6 % (16.0-70.0); PLATELET COUNT 69 TH/MM3 (150-450); RED CELL DISTRIBUTION WIDTH 13.6 % (11.6-17.2)
[2016-07-23] MEDS: MULTIVITAMIN TAB PO SCH (08:21)
[2016-07-23] MEDS: FOLIC ACID 1 MG TAB PO SCH (08:21)
[2016-07-23] MEDS: DOCUSATE SODIUM 100 MG CAP PO SCH ×2 (08:23→20:48)
[2016-07-23] MEDS: THIAMINE HCL 100 MG TAB PO SCH (08:23)
[2016-07-23] MEDS: KETOROLAC TROMETHAMINE 30 MG/ML (IVP) VIAL IVP PRN ×2 (08:30→16:57)
[2016-07-23 08:32] LABS: BICARBONATE 32.3 MEQ/L (21.0-32.0); POTASSIUM 3.9 MEQ/L (3.5-5.1)
[2016-07-23] MEDS: SODIUM CHLORID 0.9% 500 ML IV SCH (08:35)
[2016-07-23 08:41] LABS: HEMO FLAGS AUTO DIFF
--- NOTE | 2016-07-23 08:57 | MB ---
cc: STEPHANIE CHAMBERLAIN M.D. DATE OF CONSULTATION: 07/23/2016 REASON FOR CONSULTATION Left ankle trimalleolar fracture. 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 He was working on his mother's roof when he fell off the roof. He presented to the emergency room with severe pain about the left ankle and deformity. The patient was unable to ambulate. The only relieving factor was non-ambulatory position. He was found to have fractures of the ankle. He was also found to have rib fractures as well without a pneumothorax. He says that his previous history is for narcotic abuse. He is currently on methadone, takes 130 mg a day. The patient takes Xanax as well. The patient is a chronic smoker. REVIEW OF SYSTEMS A 12-point review of systems is negative except as noted in the history of present illness. ALLERGIES No known drug allergies. PAST MEDICAL HISTORY Negative. PAST SURGICAL HISTORY Negative. MEDICATIONS As described in the chart. PHYSICAL EXAMINATION VITAL SIGNS: The patient's temperature is 98.3, pulse 82, respirations 20, blood pressure 160/87. GENERAL: The patient is a awake, alert and oriented x3. Normal affect, insight and judgment. He is in distress due to pain. HEENT: His head is atraumatic. He has poor dentition. Oropharynx is moist. NECK: Supple and nontender. HEART: Regular rate and rhythm. LUNGS: Clear to auscultation bilaterally. ABDOMEN: Soft, nontender, nondistended. MUSCULOSKELETAL: He has tenderness about the chest wall. EXTREMITIES: His bilateral upper extremities have good active range of motion of the shoulders, elbows and wrists. The left lower extremity is currently splinted. There is no bloody drainage on the splint. He has chronically thickened toenails. He has normal sensation with brisk capsule refill about the toes on the left side. The right knee and right ankle have no tenderness. Neurologic exam of the upper extremities and the right lower extremity is unremarkable. LABORATORY Laboratory studies show a white cell count of 4.9, hematocrit 42.1, platelets 84, glucose 117, creatinine 0.70. IMAGING X-ray report of the pelvis is negative. Report of the head CT is negative for fracture. Report of the chest x-ray reads negative. Cervical spine CT: Moderate degenerative changes. CT of the chest reported is left 11th rib fracture. Lumbar spine CT: Transverse process fractures of L2 and L3. X-ray images reviewed of the left ankle show a trimalleolar ankle fracture which is significantly displaced and appears to be dislocated. There is a post reduction that shows improved alignment but still significant displacement. IMPRESSION 1. Chronic pain management with chronic methadone use, chronic alcoholism and tobacco use. 2. Left ankle trimalleolar fracture-dislocation. 3. Left 11th rib fracture. 4. Left-sided L2 and L3 transverse process fractures. DECISION-MAKING This is a very complicated situation for this patient. The left leg has severe fractures and if left with nonoperative management would lead to very significant dysfunction of the left leg potentially create a situation where he could not ambulate and have serious chronic pain. Therefore surgical management I believe is indicated that should be for open reduction, internal fixation. If there is too much swelling may proceed with external fixation. I explained this to the patient. He understands the risks of surgery include but are not limited to injury to nerves and blood vessels, bleeding, infection, failure of hardware, need for re-operation, continued pain, loss of range of motion in associated joints, DVT, pulmonary embolus, pneumonia and . We discussed the use of Lovenox potentially after surgery as DVT prophylaxis. As to the left rib fracture I recommend nonoperative management. As for the transverse process fractures of the lumbar spine I also recommend nonoperative management for this condition. The patient may require a Pain Management consultation as his pain will likely be very difficult to control following surgical management. Questions have been answered. MD YOLANDA Camp/UBALDO /8:26 AM /8:43 AM
[2016-07-23] MEDS ORDERED: ceFAZolin 2 GM PREMIX 50 ML ONE (11:16)
[2016-07-23] MEDS ORDERED: GENTAMICIN SULFATE 80 MG/2 ML VIAL ONE (11:16)
[2016-07-23] MEDS ORDERED: VANCOMYCIN HCL 1000 MG VIAL ONE (11:16)
[2016-07-23] MEDS ORDERED: BUPIVACAINE HCL PF 0.5% 30 ML VIAL ONE (11:25)
[2016-07-23] MEDS ORDERED: BUPIVACAINE/EPINEPHRINE 0.25% PF 30 ML VIAL ONE (11:25)
[2016-07-23] MEDS ORDERED: MIDAZOLAM HCL 2 MG/2 ML VIAL ONE (12:04)
[2016-07-23] MEDS ORDERED: HYDROmorphone HCL PF 2 MG/ML VIAL ONE (12:04)
[2016-07-23] MEDS ORDERED: fentaNYL CITRATE 250 MCG/5 ML AMP ONE (12:04)
[2016-07-23 12:27] LABS: PLATELET ESTIMATE SMEAR LOW (NORMAL); PLATELET MORPHOLOGY NORMAL (NORMAL); SCAN/DIFF AUTO DIFF CONFIRMED
--- NOTE | 2016-07-23 12:37 | EKG ---
Date Performed: 07/23/2016 Time Performed: 09:58:33 PTAGE: 51 years EKG: Sinus rhythm NONSPECIFIC T-WAVE ABNORMALITY Since previous tracing, no significant change noted BORDERLINE ECG PREVIOUS TRACING : 06/21/2012 14.01 DOCTOR: Catalina Nelson Interpretating Date/Time 07/23/2016 12:35:24
--- NOTE | 2016-07-23 12:54 | PD.OP ---
Operative Report Date of Surgery: Jul 23, 2016 Preoperative Diagnosis: Left ankle trimalleolar fracture dislocation. Postoperative Diagnosis: Same Procedure: Left ankle open reduction and internal fixation of trimalleolar fracture without fixation of the lip. Application of cancellous bone graft to lateral as well as. Anesthesia: Gen. Surgeon: Sae Roe Combatant Diver Officer(s): SAV Christopher The surgical procedure was assisted by my Advanced Registered Nurse Practitioner. My ENDOCRINOLOGIST presence was necessary throughout this case for the manipulation and positioning of the surgical extremity. My ENDOCRINOLOGIST was assisting me throughout the duration of this procedure. The skill set of an Advance Registered Nurse Practitioner was medically necessary to complete this procedure. During the surgical case, the darkroom technician was working at the back table and the Advance Registered Nurse Practitioner was directly assisting me. Operation and Findings: Tourniquet time: 36 minutes at 250 mmHg of pressure Estimated blood loss: 100 cc The patient received intravenous vancomycin and Ancef. After the appropriate anesthesia was administered, the patient's leg was prepped and draped in the usual sterile fashion. The leg was exsanguinated and a tourniquet was raised. We made a standard incision over the lateral aspect of the ankle. We then dissected through the deep fascia down to the fracture site. The edges of the fracture were identified. Hematoma was evacuated and the fracture was irrigated. The fracture was anatomically reduced with a reduction clamp, verified both visually and via fluoroscopy. There was some comminuted bone and noted as well which did leave a small gap in the mid and anterior aspect. At the end of the case this was filled in with about 5 cc of cancellus bone. We then applied a pre-contoured Synthes lateral malleolus plate over the fracture. We initially secured the plate using a non-locking screw in the oblong screw hole. This gave nice compression of the plate to the bone. We then secured the fracture with multiple distal and proximal locking screws. We took final fluoroscopic imaging of the ankle, including an AP, lateral, and mortise view. The fracture and the mortise were anatomic. We found no intra- articular penetration of the screws. The medial malleolus was still mildly displaced with some comminution. We made a medial incision and dissected down to the fracture and identified periosteum that was within the fracture site. This was removed and then the medial malleolus was anatomically reduced. We held this provisionally with K wires. We secured this with 2 individual 4.0 partially threaded, long thread, stainless steel Synthes screws. Both of these screws had excellent purchase in the bone. The mortise remained anatomic. The posterior malleolar fracture was less than 25% and now anatomic. It did not require fixation. The patient had full range of motion of the ankle with no crepitus. No instability was noted. The tourniquet was released and hemostasis was achieved. We irrigated the incision thoroughly. This is the time when we applied the cancellus bone to the lateral fracture. We then closed the deep fascia as much as possible with 0 Vicryl. Skin was closed with 2-0 Vicryl followed by 3-0 nylon. The medial wound was closed as well with Vicryl followed by nylon. The leg was dressed and a splint was applied. The postoperative plan is for nonweightbearing to the extremity. Sae Roe MD Jul 23, 2016 12:54
[2016-07-23] MEDS ORDERED: ENOX40P SQ (12:56)
[2016-07-23] MEDS ORDERED: ASPI325T PO (12:56)
[2016-07-23] MEDS ORDERED: HYDR-3366 PO (12:56)
[2016-07-23] MEDS ORDERED: Post-op Orders (for Pharmacy) MISC XX ONE (13:00)
[2016-07-23] MEDS ORDERED: SODIUM CHLORIDE 0.9% FLUSH 5 ML FLUSH IVF PRN (13:00)
[2016-07-23] MEDS ORDERED: diphenhydrAMINE HCL 25 MG CAP PO PRN (13:00)
[2016-07-23] MEDS ORDERED: NALOXONE HCL 0.4 MG/ML AMP IV PRN (13:00)
[2016-07-23] MEDS ORDERED: MAGNESIUM HYDROXIDE SUSP 30 ML CUP PO PRN (13:00)
[2016-07-23] MEDS ORDERED: ACETAMINOPHEN/HYDROcodone 325 MG/10 MG TAB PO PRN ×2 (13:00)
[2016-07-23] MEDS ORDERED: MISCELLANEOUS NURSING INFORMATION XX PRN (13:00)
[2016-07-23] MEDS ORDERED: MISCELLANEOUS PHARMACY INFORMATION XX ONE (13:00)
[2016-07-23] MEDS ORDERED: *MEPERIDINE 25 MG INJ VIAL PERIprocedural Use ONLY ONE (13:34)
[2016-07-23] MEDS ORDERED: *morphine SULFATE 8 MG/ML PERIprocedure ONLY ONE ×2 (13:41→13:56)
[2016-07-23] MEDS ORDERED: *LABETALOL HCL 100 MG/20 ML VIAL PERIprocedural Use ONLY ONE (13:48)
--- NOTE | 2016-07-23 13:57 | HHI.PR ---
Subjective Subjective Notes PTD: 1 1130: In the OR 1300: In the OR Objective Vitals/I&O Vital Signs Date Time Temp Pulse Resp B/P Pulse Ox O2 Delivery O2 Flow Rate FiO2 07/23/16 08:00 97.7 76 17 146/91 96 07/23/16 03:47 21 07/22/16 20:06 Nasal Cannula 2.00 Labs Laboratory Tests Test 07/22/16 07/23/16 16:00 07:04 White Blood Count 4.9 4.0 Red Blood Count 4.34 4.10 Hemoglobin 14.7 13.9 Hematocrit 42.1 39.8 Mean Corpuscular Volume 97.0 97.0 Mean Corpuscular Hemoglobin 34.0 33.8 Mean Corpuscular Hemoglobin 35.0 34.8 Concent Red Cell Distribution Width 13.7 13.6 Platelet Count 84 69 Mean Platelet Volume 7.1 7.3 Neutrophils (%) (Auto) 49.7 53.6 Lymphocytes (%) (Auto) 35.5 30.5 Monocytes (%) (Auto) 9.8 11.4 Eosinophils (%) (Auto) 3.9 3.5 Basophils (%) (Auto) 1.1 1.0 Neutrophils # (Auto) 2.4 2.1 Lymphocytes # (Auto) 1.7 1.2 Monocytes # (Auto) 0.5 0.5 Eosinophils # (Auto) 0.2 0.1 Basophils # (Auto) 0.1 0.0 CBC Comment AUTO DIFF AUTO DIFF Differential Comment AUTO DIFF AUTO DIFF CONFIRMED CONFIRMED Platelet Estimate LOW LOW Platelet Morphology Comment NORMAL NORMAL Red Cell Morphology Comment NORMAL Prothrombin Time 13.4 Prothromb Time International 1.2 Ratio Activated Partial 28.5 Thromboplast Time Sodium Level 132 133 Potassium Level 3.6 3.9 Chloride Level 94 95 Carbon Dioxide Level 32.6 32.3 Anion Gap 5 6 Blood Urea Nitrogen 6 9 Creatinine 0.70 0.68 Estimat Glomerular Filtration 118 122 Rate Random Glucose 117 96 Calcium Level 7.9 7.9 Total Bilirubin 0.6 Aspartate Amino Transf 78 (AST/SGOT) Alanine Aminotransferase 66 (ALT/SGPT) Alkaline Phosphatase 82 Total Protein 8.1 Albumin 3.1 Blood Type O POSITIVE Antibody Screen NEGATIVE Blood Bank Comment A/P Problem List: (1) Rib fracture (2) Fx lumbar vertebra-closed (3) Closed left ankle fracture Assessment and Plan [employer]: This is a 51-year-old male who was involved in a fall from a roof; approximately 10-13 feet. He landed on some bricks. No LOC. GCS = 15. INJURIES: LEFT posterior rib fracture (#11) L2 and L3 transverse process fracture LEFT trimalleolar fracture Procedures: 07/23: ORIF of the LEFT trimalleolar fracture Consults: Orthopedics Diet: Regular ADA diet. Tolerating po diet. Encourage good po intake with each meal. Pulmonary: Encourage good pulmonary toileting. IS and acapella at bedside and pt encouraged to use. Rationale for use explained to patient, and verbalized understanding. EZ Pap q 4 hrs. PAIN Management: [place] po. Morphine IV for breakthrough pain. Toradol IV, Methadone po. Home Xanax dose resumed per patient request. Activity: OOB. PT and OT ordered. (NWB LLE) GI prophylaxis: Pepcid hs Bowel regimen: Colace and MOM. DVT prophylaxis: Mechanical VTE with SCDs. Chemical management with Lovenox 40 q day. DC Planning: Case management consulted for assistance with final discharge disposition. Patient is hemodynamically stable and being managed on the med/surg floor. Problem Qualifiers (1) Rib fracture: Qualified Code: S22.32XA - Closed fracture of one rib of left side, initial encounter (2) Fx lumbar vertebra-closed: Qualified Code: S32.029A - Closed fracture of second lumbar vertebra, unspecified fracture morphology, initial encounter (3) Closed left ankle fracture: Qualified Code: S82.892A - Closed left ankle fracture, initial encounter Estephania Fatima Jul 23, 2016 13:57 Estephania Fatima Jul 23, 2016 13:57
[2016-07-23] MEDS ORDERED: DO NOT ADM ANY ANTICOAGULANT DRUGS XX PRN (14:00)
[2016-07-23] MEDS ORDERED: *diphenhydrAMINE HCL 50 MG/ML VIAL PERIprocedural Use ONLY ONE (14:00)
[2016-07-23] MEDS ORDERED: PROPOFOL 200 MG/20 ML AMP IV ONE (14:13)
[2016-07-23] MEDS ORDERED: NEOSTIGMINE 3 MG/3 ML SYR IV ONE (14:13)
[2016-07-23] MEDS ORDERED: SODIUM CHLOR 0.9% 1000 ML INJ 1,000 ML IV ONE (14:13)
[2016-07-23] MEDS ORDERED: ONDANSETRON HCL 4 MG/2 ML VIAL IV PUSH ONE (14:13)
[2016-07-23] MEDS: DEXT 5%-NACL 0.45% 1000 ML INJ 1,000 ML IV SCH (14:35)
--- NOTE | 2016-07-23 14:59 | RADRPT ---
EXAM DATE/TIME: 07/23/2016 12:27 [facility] COMPARISON: No previous studies available for comparison. INDICATIONS : Open reduction. MEDICAL HISTORY : None. SURGICAL HISTORY : None. ENCOUNTER: Subsequent ACUITY: 2 days PAIN SCORE: Non-responsive. LOCATION: Left lateral CONCLUSION: Fluoroscopic images during placement of plate and screws along the distal fibula. 2 screws on the med ial malleolus. There is anatomic alignment. Benny Jolly MD on July 23, 2016 at 14:57 Board Certified Radiologist. This report was verified electronically.
[2016-07-23] MEDS: ALPRAZolam 1 MG TAB PO PRN ×2 (15:17→23:53)
[2016-07-23] MEDS: MORPHINE SULFATE 4 MG/ML INJ IV PUSH PRN ×3 (15:17→23:53)
[2016-07-23] MEDS: ENALAPRILAT 1.25 MG/ML VIAL IV PRN (16:39)
[2016-07-23] MEDS: DOCUSATE SODIUM 50 MG/SENNA 8.6 MG TAB PO SCH (20:48)
[2016-07-23] MEDS: FAMOTIDINE 20 MG TAB PO SCH (20:48)
[2016-07-23] MEDS ORDERED: SODIUM CHLORIDE 0.9% FLUSH 5 ML FLUSH IVF SCH (21:00)
[2016-07-24] VITALS (8 sets, daily range): BP systolic 141–197; BP diastolic 81–109; PULSE 78–88; RESP 18–22; TEMP 97.8–99.4; O2SAT 94–97
[2016-07-24] MEDS: ENALAPRILAT 1.25 MG/ML VIAL IV PRN (00:37)
[2016-07-24] MEDS: KETOROLAC TROMETHAMINE 30 MG/ML (IVP) VIAL IVP PRN ×3 (00:37→20:02)
[2016-07-24] MEDS: MORPHINE SULFATE 4 MG/ML INJ IV PUSH PRN (04:13)
[2016-07-24 04:39] LABS: HEMATOCRIT 36.4 % (39.0-51.0); MEAN CORPUSCULAR HEMOGLOBIN 33.7 PG (27.0-34.0); MEAN CORPUSCULAR HGB CONC 34.4 % (32.0-36.0); PLATELET COUNT 61 TH/MM3 (150-450); RED BLOOD COUNT 3.72 MIL/MM3 (4.50-5.90); RED CELL DISTRIBUTION WIDTH 13.7 % (11.6-17.2); WHITE BLOOD COUNT 4.3 TH/MM3 (4.0-11.0)
[2016-07-24 04:43] LABS: REVIEW FLAG FINAL
[2016-07-24 04:58] LABS: BICARBONATE 29.7 MEQ/L (21.0-32.0); MAGNESIUM 1.7 MG/DL (1.5-2.5); POTASSIUM 3.9 MEQ/L (3.5-5.1)
[2016-07-24] MEDS: METHADONE HCL 10 MG TAB PO SCH (06:34)
[2016-07-24] MEDS: DOCUSATE SODIUM 100 MG CAP PO SCH ×2 (08:26→19:45)
[2016-07-24] MEDS: DOCUSATE SODIUM 50 MG/SENNA 8.6 MG TAB PO SCH ×2 (08:26→19:46)
[2016-07-24] MEDS: THIAMINE HCL 100 MG TAB PO SCH (08:26)
[2016-07-24] MEDS: MULTIVITAMINS/MINERALS THERAPEUTIC TAB PO SCH (08:26)
[2016-07-24] MEDS: FOLIC ACID 1 MG TAB PO SCH (08:26)
[2016-07-24] MEDS: MULTIVITAMIN TAB PO SCH (08:26)
[2016-07-24] MEDS: DEXT 5%-NACL 0.45% 1000 ML INJ 1,000 ML IV SCH (08:27)
[2016-07-24] MEDS: ENOXAPARIN SODIUM 40 MG/0.4 ML SYRINGE SQ SCH (11:21)
--- NOTE | 2016-07-24 12:35 | HHI.PR ---
Subjective Subjective Notes S/P ORIF LEFT trimalleolar fx with application of cancellous bone graft. Complains of throbbing pain and paresthesias to left leg. Objective Vitals/I&O Vital Signs Date Time Temp Pulse Resp B/P Pulse Ox O2 Delivery O2 Flow Rate FiO2 07/24/16 08:00 98.0 85 18 163/99 95 07/23/16 21:30 21 07/23/16 14:30 Nasal Cannula 2 Labs Laboratory Tests Test 07/24/16 03:53 White Blood Count 4.3 Red Blood Count 3.72 Hemoglobin 12.5 Hematocrit 36.4 Mean Corpuscular Volume 98.0 Mean Corpuscular Hemoglobin 33.7 Mean Corpuscular Hemoglobin 34.4 Concent Red Cell Distribution Width 13.7 Platelet Count 61 Mean Platelet Volume 7.9 Sodium Level 134 Potassium Level 3.9 Chloride Level 98 Carbon Dioxide Level 29.7 Anion Gap 6 Blood Urea Nitrogen 9 Creatinine 0.68 Estimat Glomerular Filtration 122 Rate Random Glucose 96 Calcium Level 8.2 Magnesium Level 1.7 Radiology Last Impressions Chest X-Ray 07/23/16 0741 Signed Impressions: Service Date/Time: Saturday, July 23, 2016 07:23 - CONCLUSION: No acute disease. Benny Jolly MD Ankle X-Ray 07/23/16 0000 Signed Impressions: Service Date/Time: Saturday, July 23, 2016 12:27 - CONCLUSION: Fluoroscopic images during placement of plate and screws along the distal fibula. 2 screws on the medial malleolus. There is anatomic alignment. Benny Jolly MD Thoracic Spine CT 07/22/16 1610 Signed Impressions: Service Date/Time: Friday, July 22, 2016 17:40 - CONCLUSION: 1. No acute fracture within the thoracic spine. Left 11th rib fracture. No canal stenosis. Schmorl's node inferior endplate T9. Rohit Manning MD Pelvis X-Ray 07/22/16 1610 Signed Impressions: Service Date/Time: Friday, July 22, 2016 16:20 - CONCLUSION: Normal examination for a patient of this age. Rohit Manning MD Lumbar Spine CT 07/22/16 1610 Signed Impressions: Service Date/Time: Friday, July 22, 2016 17:40 - CONCLUSION: 1. Fractures of the left 11th rib and left transverse processes of L2 and L3. No vertebral body fractures. Advanced degenerative disc disease at L4-5. Rohit Manning MD Head CT 07/22/161609 Signed Impressions: Service Date/Time: Friday, July 22, 2016 17:34 - CONCLUSION: Normal examination for a patient of this age. Rohit Manning MD Chest CT 07/22/161609 Signed Impressions: Service Date/Time: Friday, July 22, 2016 17:40 - CONCLUSION: Left 11th rib fracture with small adjacent hematoma. No pneumothorax. Dependent groundglass opacity in the lungs, likely mostly atelectasis. Mild emphysema. Rohit Manning MD Cervical Spine CT 07/22/161609 Signed Impressions: Service Date/Time: Friday, July 22, 2016 17:34 - CONCLUSION: 1. Moderate degenerative change. No acute bony abnormalities. Rohit Manning MD Abdomen/Pelvis CT 07/22/161609 Signed Impressions: Service Date/Time: Friday, July 22, 2016 17:40 - CONCLUSION: 1. Fractures of the left 11th rib and left transverse process of L2 and L3. No solid visceral injury identified within the abdomen. No free fluid or free air. Rohit Manning MD Narrative Exam GENERAL: 51 year old well-nourished, well developed male lying in bed. SKIN: Warm and dry. ENT: No nasal bleeding or discharge. Mucous membranes pink and moist. NECK: Trachea midline. No JVD. CARDIOVASCULAR: Regular rate and rhythm. RESPIRATORY: No accessory muscle use. Lungs clear to auscultation. Breath sounds equal bilaterally. GASTROINTESTINAL: Abdomen soft, non-tender, nondistended. + BS. MUSCULOSKELETAL: Extremities without cyanosis. LEFT leg with soft splint in place. Toes edematous and warm. Patient able to barely move toes when asked. NEUROLOGICAL: Awake and alert. Normal speech. 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 07/22: LEFT ankle reduced in ED. 07/23: ORIF LEFT trimalleolar fx with application of cancellous bone graft. Diet: ADA Pulm: IS, acapella and EZpap. Pain: [place]. MSO4 IV. Toradol. (Methadone) (Xanax) Added Neurontin for paresthesias. Activity: OOB PT and OT ordered (NWB LLE). Awaiting PT/OT eval today. GI: Pepcid HS Bowel: Colace. MOM DVT: SCD's. Lovenox DC IVF. DC home with [facility] when cleared by Ortho. Plan of care discussed with patient at bedside. Problem Qualifiers (1) Rib fracture: Qualified Code: S22.32XA - Closed fracture of one rib of left side, initial encounter (2) Fx lumbar vertebra-closed: Qualified Code: S32.029A - Closed fracture of second lumbar vertebra, unspecified fracture morphology, initial encounter (3) Closed left ankle fracture: Qualified Code: S82.892A - Closed left ankle fracture, initial encounter Sheri Quintero Jul 24, 2016 12:35
--- NOTE | 2016-07-24 12:43 | PD.ORT.PN ---
Subjective Post Op Day #: 1 Subjective Remarks Patient c/o moderate pain to the right ankle and left ribs. Patient states he is using a pillow to brace himself when moving. Moving exacerbates his pain and rest helps reduce pain. Objective Vitals Vital Signs Date Time Temp Pulse Resp B/P Pulse Ox O2 Delivery O2 Flow Rate FiO2 07/24/16 08:00 98.0 85 18 163/99 95 07/24/16 04:08 98.5 88 19 145/81 97 07/24/16 01:20 80 179/88 07/24/16 00:00 99.4 87 22 197/109 96 07/23/16 21:30 21 07/23/16 20:05 99.1 76 18 151/83 95 07/23/16 16:30 96 21 07/23/16 16:09 160/104 07/23/16 15:14 97.8 72 16 167/88 95 07/23/16 14:30 97.7 74 14 162/98 95 Nasal Cannula 2 07/23/16 14:15 72 14 166/99 95 Nasal Cannula 3 07/23/16 14:00 77 14 169/99 94 Nasal Cannula 3 07/23/16 13:45 90 14 196/113 95 Nasal Cannula 3 07/23/16 13:30 97.0 98 15 172/127 93 Nasal Cannula 3 I/O 07/23/16 07/23/16 07/23/16 07/24/16 07/24/16 07/24/16 07:00 15:00 23:00 07:00 15:00 23:00 Intake Total 120 ml 1340 ml 720 ml 240 ml Output Total 400 ml 150 ml 700 ml 800 ml Balance -280 ml 1190 ml 20 ml -560 ml Intake Oral 120 ml 240 ml 720 ml 240 ml IV Total 100 ml Other 1000 ml Output Urine Total 400 ml 700 ml 800 ml Estimated Blood Loss 150 ml # Voids 3 # Bowel Movements 0 0 0 0 Result Diagram: 07/24/16 0353 07/24/16 0353 Procedures Left ankle open reduction and internal fixation of trimalleolar fracture without fixation of the lip. Application of cancellous bone graft to lateral fracture. Multiple rib fractures and left transverse process fractures Objective Remarks Splint is C/D/I. Patient moves toes slightly and has good sensation to light touch. Minimal swelling to the toes. BCR X 5. Left flank edema and moderate ecchymosis. Moderate tenderness to palpation of the left ribs and left paraspinal musculature. Minimal tenderness to palpation of the spine midline. Patient moves extremities well. Assessment & Plan Ortho Post Op Day #: 1 Problem List: Assessment and Plan POD #1: Left ankle open reduction and internal fixation of trimalleolar fracture without fixation of the lip. Application of cancellous bone graft to lateral fracture. Multiple rib fractures and left transverse process fractures 1. Maintain splint to the left ankle 2. Ice to the ankle PRN 3. Stable for discharge home today per ortho if medically cleared. 4. F/U with Dr. Roe in 1 week. 5. Continue conservative management for the rib fractures and left transverse process fractures William Huber Jul 24, 2016 12:43
[2016-07-24] MEDS: ALPRAZolam 1 MG TAB PO PRN (13:53)
[2016-07-24] MEDS: GABAPENTIN 300 MG CAP PO SCH ×2 (13:53→18:00)
[2016-07-24] MEDS ORDERED: WHEEMIS3 (17:55)
[2016-07-24] MEDS ORDERED: WALKER WHEELS/F1 MIS (17:55)
[2016-07-24] MEDS ORDERED: BEDSIDE COMMODE1 MI1 (17:55)
[2016-07-24] MEDS ORDERED: MILKSUS PO (17:59)
[2016-07-24] MEDS ORDERED: DOCU1CAP39 PO (17:59)
[2016-07-24] MEDS: FAMOTIDINE 20 MG TAB PO SCH (19:45)
[2016-07-25] VITALS: BP 120/74; PULSE 67; RESP 17; TEMP 97.8; O2SAT 93
[2016-07-25 04:00] VITALS: BP 135/79; PULSE 75; RESP 16; TEMP 96.8; O2SAT 96
[2016-07-25] MEDS: METHADONE HCL 10 MG TAB PO SCH (06:39)
[2016-07-25 08:00] VITALS: BP 158/91; PULSE 81; RESP 18; TEMP 98.8; O2SAT 97
[2016-07-25] MEDS ORDERED: LACTULOSE SYRUP 20 GM/30 ML CUP PO ONE (09:00)
[2016-07-25 09:30] VITALS: O2SAT 97
[2016-07-25] MEDS: KETOROLAC TROMETHAMINE 30 MG/ML (IVP) VIAL IVP PRN (10:41)
[2016-07-25] MEDS: MULTIVITAMIN TAB PO SCH (10:41)
[2016-07-25] MEDS: ENOXAPARIN SODIUM 40 MG/0.4 ML SYRINGE SQ SCH (10:41)
[2016-07-25] MEDS: FOLIC ACID 1 MG TAB PO SCH (10:41)
[2016-07-25] MEDS: DOCUSATE SODIUM 50 MG/SENNA 8.6 MG TAB PO SCH (10:41)
[2016-07-25] MEDS: DOCUSATE SODIUM 100 MG CAP PO SCH (10:41)
[2016-07-25] MEDS: THIAMINE HCL 100 MG TAB PO SCH (10:42)
[2016-07-25] MEDS: MULTIVITAMINS/MINERALS THERAPEUTIC TAB PO SCH (10:42)
[2016-07-25] MEDS: GABAPENTIN 300 MG CAP PO SCH ×2 (10:42→13:15)
[2016-07-25] MEDS: ALPRAZolam 1 MG TAB PO PRN (10:53)
[2016-07-25 12:00] VITALS: BP 140/77; PULSE 77; RESP 18; TEMP 98.4; O2SAT 96
[2016-07-25] MEDS ORDERED: XANA1TAB2 PO (12:09)
[2016-07-25] MEDS ORDERED: KETO10 PO (12:09)
[2016-07-25] MEDS ORDERED: METH10TA PO (12:09)
[2016-07-25] MEDS ORDERED: CALCIUM CARBONATE 500 MG CHEWABLE TAB CHEW ONE (15:00)
--- NOTE | 2016-07-25 18:05 | HHI.DS ---
Discharge Summary Admission Date Jul 22, 2016 at 18:39 Discharge Date: Jul 25, 2016 Admitting Diagnosis (1) Rib fracture Diagnosis: Principal (2) Fx lumbar vertebra-closed Diagnosis: Principal (3) Closed left ankle fracture Diagnosis: Principal Brief History Fall from a roof. CBC/BMP: 07/24/16 0353 07/24/16 0353 Significant Findings Laboratory Tests Test 07/23/16 07/24/16 07:04 03:53 Red Blood Count 4.10 MIL/MM3 3.72 MIL/MM3 (4.50-5.90) (4.50-5.90) Platelet Count 69 TH/MM3 61 TH/MM3 (150-450) (150-450) Monocytes (%) (Auto) 11.4 % (0.0-8.0) Platelet Estimate LOW (NORMAL) Sodium Level 133 MEQ/L 134 MEQ/L (136-145) (136-145) Chloride Level 95 MEQ/L (98-107) Carbon Dioxide Level 32.3 MEQ/L (21.0-32.0) Calcium Level 7.9 MG/DL 8.2 MG/DL (8.5-10.1) (8.5-10.1) Hemoglobin 12.5 GM/DL (13.0-17.0) Hematocrit 36.4 % (39.0-51.0) Imaging Last Impressions Chest X-Ray 07/23/16 0741 Signed Impressions: Service Date/Time: Saturday, July 23, 2016 07:23 - CONCLUSION: No acute disease. Benny Jolly MD Ankle X-Ray 07/23/16 0000 Signed Impressions: Service Date/Time: Saturday, July 23, 2016 12:27 - CONCLUSION: Fluoroscopic images during placement of plate and screws along the distal fibula. 2 screws on the medial malleolus. There is anatomic alignment. Benny Jolly MD Thoracic Spine CT 07/22/16 1610 Signed Impressions: Service Date/Time: Friday, July 22, 2016 17:40 - CONCLUSION: 1. No acute fracture within the thoracic spine. Left 11th rib fracture. No canal stenosis. Schmorl's node inferior endplate T9. Rohit Manning MD Pelvis X-Ray 07/22/16 1610 Signed Impressions: Service Date/Time: Friday, July 22, 2016 16:20 - CONCLUSION: Normal examination for a patient of this age. Rohit Manning MD Lumbar Spine CT 07/22/161609 Signed Impressions: Service Date/Time: Friday, July 22, 2016 17:40 - CONCLUSION: 1. Fractures of the left 11th rib and left transverse processes of L2 and L3. No vertebral body fractures. Advanced degenerative disc disease at L4-5. Rohit Manning MD Head CT 07/22/161609 Signed Impressions: Service Date/Time: Friday, July 22, 2016 17:34 - CONCLUSION: Normal examination for a patient of this age. Rohit Manning MD Chest CT 07/22/161609 Signed Impressions: Service Date/Time: Friday, July 22, 2016 17:40 - CONCLUSION: Left 11th rib fracture with small adjacent hematoma. No pneumothorax. Dependent groundglass opacity in the lungs, likely mostly atelectasis. Mild emphysema. Rohit Manning MD Cervical Spine CT 07/22/161609 Signed Impressions: Service Date/Time: Friday, July 22, 2016 17:34 - CONCLUSION: 1. Moderate degenerative change. No acute bony abnormalities. Rohit Manning MD Abdomen/Pelvis CT 07/22/161609 Signed Impressions: Service Date/Time: Friday, July 22, 2016 17:40 - CONCLUSION: 1. Fractures of the left 11th rib and left transverse process of L2 and L3. No solid visceral injury identified within the abdomen. No free fluid or free air. Rohit Manning MD PE at Discharge GENERAL: 51 year old well-nourished, well developed male lying in bed. SKIN: Warm and dry. ENT: No nasal bleeding or discharge. Mucous membranes pink and moist. NECK: Trachea midline. No JVD. CARDIOVASCULAR: Regular rate and rhythm. RESPIRATORY: No accessory muscle use. Lungs clear to auscultation. Breath sounds equal bilaterally. GASTROINTESTINAL: Abdomen soft, non-tender, nondistended. + BS. MUSCULOSKELETAL: Extremities without cyanosis. LEFT leg with soft splint in place. Positive peripheral pulses 4 extremities. Good capillary refill and sensation. Move all extremities well. NEUROLOGICAL: Awake and alert. Normal speech. Hospital Course History of present illness: This is a 51-year-old male who sustained a fall from a roof of approximately 10-15 feet. He landed on some breaks. No LOC. GCS equals 15. Injuries: Left posterior rib fracture #11 L2 and L3 transverse process fractures Left trimalleolar fracture Procedures: 07/22: Left ankle reduced in the ED 07/23: ORIF left trimalleolar fracture with application of bone graft Consults: Orthopedics. The patient is now tolerating a po diet. Eating and drinking well. Pain is being managed well with PO pain medications, and patient will continue on his home dose of methadone. We have recommended to patient to continue with stool softeners while taking narcotic pain medications to prevent constipation. Pt has been participating in PT and OT while admitted at [facility] and has been ambulating with their assistance and independently . Patient states that he feels great today compared to yesterday. "I'm finally getting over the pain. I had plenty of family at home to help be. I am ready to go. I don't want any PT, I just want to go home." Patient states that he has a walker and a wheelchair at home for use. All follow up appointments have been provided and discussed with the patient. It is recommended that the patient keeps all his follow up appointments for continued recovery. Therefore, the patient is stable to be safely discharged home from a trauma surgery standpoint. Thank you for allowing us to participate in his care. We wish Sam the best in his recovery. Pt Condition on Discharge: Stable Discharge Disposition: Discharge Home Discharge Instructions DIET: Follow Instructions for: As Tolerated, No Restrictions Activities you can perform: Non Weight Bearing Activities to Avoid: Driving for 24 hrs, Concussion Sports, Contact Sports, Lifting/Bending, Prolonged Standing, Strenuous Activity Other Activity Instructions: Nonweightbearing left lower extremity Estephania Fatima Jul 25, 2016 18:05
== END 2016-07-25 15:55 | disposition home or self-care (01) | DRG 493 ==
LOC: NEPE 15:53 → NEDA 18:39 → N06B 20:59
PROVIDERS: ADMIT Surgery; ATTEND Surgery
PROC: 0QSKXZZ Reposition Left Fibula, External Approach (ICD-10-PCS; 2016-07-22)
PROC: 0QSK04Z Reposition Left Fibula with Internal Fixation Device, Open Approach (ICD-10-PCS; 2016-07-23)
PROC: 0QUK0KZ Supplement Left Fibula with Nonautologous Tissue Substitute, Open Approach (ICD-10-PCS; 2016-07-23)
PROC: 0QUH0KZ Supplement Left Tibia with Nonautologous Tissue Substitute, Open Approach (ICD-10-PCS; 2016-07-23)
PROC: 0QSH04Z Reposition Left Tibia with Internal Fixation Device, Open Approach (ICD-10-PCS; principal; 2016-07-23 11:13)
DX: S82.852A Displaced trimalleolar fracture of left lower leg, initial encounter for closed fracture (principal); S32.029A Unspecified fracture of second lumbar vertebra, initial encounter for closed fracture; S32.039A Unspecified fracture of third lumbar vertebra, initial encounter for closed fracture; S22.32XA Fracture of one rib, left side, initial encounter for closed fracture; I10 Essential (primary) hypertension; B19.20 Unspecified viral hepatitis C without hepatic coma; J44.9 Chronic obstructive pulmonary disease, unspecified; K21.9 Gastro-esophageal reflux disease without esophagitis; F11.10 Opioid abuse, uncomplicated; F10.20 Alcohol dependence, uncomplicated; F17.210 Nicotine dependence, cigarettes, uncomplicated; F32.9 Major depressive disorder, single episode, unspecified; F41.9 Anxiety disorder, unspecified; W13.2XXA Fall from, out of or through roof, initial encounter
CPT/HCPCS: 27840; 70450; 71010; 71260; 72125; 72128; 72131; 72170; 73600; 73610; 74177; 76000; 80048; 80053; 83735; 85025; 85027; 85610; 85730; 86850; 86900; 86901; 93005; 94150; 94640; 94667; 96374; 96375; 99152; C1713; J0690; J1170; J1200; J1580; J1650; J1885; J2175; J2250; J2270; J2405; J2710; J3010; J3370; J7030; J7040; Q9967

== ENCOUNTER 2017-02-06 18:18 | Inpatient (IN) | payer SELFPAY ==
[~2017-02-06 18:18] MED LIST changes: +ASPI325T PO; +BEDSIDE COMMODE1 MI1; +DOCU1CAP39 PO; +ENOX40P SQ; +KETO10 PO; +MILKSUS PO; +WALKER WHEELS/F1 MIS; +WHEEMIS3; +XANA1TAB2 PO
[2017-02-06 18:24] VITALS: BP 201/94; PULSE 91; RESP 18; TEMP 99.5; O2SAT 97
[2017-02-06] MEDS ORDERED: ONDANSETRON HCL 4 MG/2 ML VIAL ONE (18:35)
[2017-02-06] MEDS ORDERED: SODIUM CHLORIDE 0.9% FLUSH 10 ML FLUSH IV FLUSH PRN ×2 (18:45→21:15)
[2017-02-06] MEDS ORDERED: PANTOPRAZOLE INJ 80 MG in SODIUM CHLORIDE 0.9% INJ 35 ML IV ONE (18:45)
[2017-02-06] MEDS ORDERED: ONDANSETRON HCL 4 MG/2 ML VIAL IV PUSH ONE (18:45)
[2017-02-06] MEDS ORDERED: LORazepam 2 MG/ML VIAL IV PUSH ONE ×2 (18:45→20:30)
[2017-02-06] MEDS ORDERED: cloNIDine HCL 0.2 MG TAB PO ONE (18:45)
[2017-02-06 18:51] LABS: BASOPHIL # 0.1 TH/MM3 (0-0.2); BASOPHIL % 0.8 % (0.0-2.0); EOSINOPHIL % 0.3 % (0.0-4.0); HEMATOCRIT 44.5 % (39.0-51.0); HEMO FLAGS DIFF FINAL; LYMPH % 16.7 % (9.0-44.0); LYMPHOCYTE # 1.6 TH/MM3 (1.0-4.8); MEAN CELL VOLUME 93.5 FL (80.0-100.0); MEAN CORPUSCULAR HGB CONC 34.3 % (32.0-36.0); MONO % 10.7 % (0.0-8.0); NEUT % 71.5 % (16.0-70.0); PLATELET COUNT 111 TH/MM3 (150-450); RED BLOOD COUNT 4.76 MIL/MM3 (4.50-5.90); RED CELL DISTRIBUTION WIDTH 13.6 % (11.6-17.2); WHITE BLOOD COUNT 9.7 TH/MM3 (4.0-11.0)
[2017-02-06 18:58] LABS: POTASSIUM 3.5 MEQ/L (3.5-5.1)
[2017-02-06 19:02] LABS: BICARBONATE 24.4 MEQ/L (21.0-32.0)
[2017-02-06 19:03] LABS: INTERNATIONAL NORMALIZED RATIO 1.1 RATIO; PROTHROMBIN TIME - PATIENT 12.5 SEC (9.8-11.6)
[2017-02-06 19:07] LABS: INDIRECT BILIRUBIN 0.9 MG/DL (0.0-0.8); TOTAL BILIRUBIN ADULT 1.4 MG/DL (0.2-1.0)
[2017-02-06 19:20] VITALS: BP 161/85; PULSE 78; RESP 18; O2SAT 98
[2017-02-06 19:31] VITALS: BP 153/89; PULSE 78; RESP 18; O2SAT 98
--- NOTE | 2017-02-06 19:55 | PD ---
HPI Chief Complaint: GI Complaint Time Seen by Provider: 18:31 Travel History International Travel<30 days: No Contact w/Intl Traveler<30days: No Traveled to known affect area: No History of Present Illness HPI Patient is a 51-year-old male who comes in complaining of 5 days of vomiting. He says he has been vomiting blood. He denies any abdominal pain. He does admit to drinking alcohol daily, but says he quit 5 days ago. He also says he has been trying to wean himself off of methadone. He last took it yesterday. He has been sweating, but denies any fevers. He says he has never had alcohol withdrawal in the past. He says he has been vomiting a lot of acid every time he lays down. He denies chest pain or shortness of breath. PFSH Past Medical History Arthritis: No Asthma: No Anxiety: Yes Depression: Yes Heart Rhythm Problems: No Cancer: No Cardiovascular Problems: No High Cholesterol: No Chest Pain: Yes Congestive Heart Failure: No COPD: Yes Cerebrovascular Accident: No Diminished Hearing: No Gastrointestinal Disorders: Yes GERD: Yes Genitourinary: Yes Headaches: No Hepatitis: Yes (HEP C) Hiatal Hernia: No Hypertension: Yes Kidney Stones: No Musculoskeletal: Yes Psychiatric: No Reproductive: No Respiratory: No Migraines: No Myocardial Infarction: Yes (?) Pancreatitis: Yes Renal Failure: Yes (R/T OVERDOSE) Seizures: Yes (PAST ALCOHOL/DRUG WITHDRAWL) Sleep Apnea: No Ulcer: No PNEUMOCCOCAL Vaccine (Year): 2 Past Surgical History Other Surgery: No Social History Alcohol Use: Yes (heavily, daily; last 6 days ago) Tobacco Use: Yes (1-2 PPD) Substance Use: Yes (on methadone) Allergies-Medications (Allergen,Severity, Reaction): Coded Allergies: No Known Allergies (Verified , 02/06/17) Reported Meds & Prescriptions Reported Meds & Active Scripts Active Methadone (Methadone HCl) 10 Mg Tab 130 Mg PO DAILY 1 Days Review of Systems Except as stated in HPI: all other systems reviewed are Neg General / Constitutional: No: Fever Eyes: No: Blurred Vision HENT: No: Headaches, Lightheadedness Cardiovascular: No: Chest Pain or Discomfort Respiratory: No: Shortness of Breath Gastrointestinal: Positive: Nausea, Vomiting, No: Abdominal Pain Genitourinary: No: Dysuria Musculoskeletal: No: Edema, Pain Skin: No Rash, No Change in Pigmentation Neurologic: Positive: Tremor Physical Exam Narrative GENERAL: Awake and alert, in no acute distress. SKIN: Focused skin assessment warm/dry. HEAD: Atraumatic. Normocephalic. EYES: Pupils equal and round. No scleral icterus. Extraocular movements intact. ENT: Mucous membranes pink and moist. Tongue fasciculations present. NECK: Trachea midline. No JVD. CARDIOVASCULAR: Regular rate and rhythm. No murmur appreciated. RESPIRATORY: No accessory muscle use. Clear to auscultation. Breath sounds equal bilaterally. GASTROINTESTINAL: Abdomen soft, non-tender, nondistended. MUSCULOSKELETAL: No obvious deformities. No clubbing. No cyanosis. No edema. NEUROLOGICAL: Awake and alert. No obvious cranial nerve deficits. Motor grossly within normal limits. Normal speech. Tremor of the hands seen. PSYCHIATRIC: Appropriate mood and affect; insight and judgment normal. Data Data Last Documented VS Vital Signs Date Time Temp Pulse Resp B/P (MAP) Pulse Ox O2 Delivery O2 Flow Rate FiO2 02/06/17 20:13 82 18 159/87 (111) 99 Room Air 02/06/17 18:24 99.5 Orders Orders Ondansetron Inj (Zofran Inj) (02/06/17 18:45) Ondansetron Inj (Zofran Inj) (02/06/17 18:35) Basic Metabolic Panel (Bmp) (02/06/17 18:35) Complete Blood Count With Diff (02/06/17 18:35) Lipase (02/06/17 18:35) Lactic Acid (02/06/17 18:35) Prothrombin Time / Inr (Pt) (02/06/17 18:35) Act Partial Throm Time (Ptt) (02/06/17 18:35) Iv Access Insert/Monitor (02/06/17 18:35) Ecg Monitoring (02/06/17 18:35) Oximetry (02/06/17 18:35) Sodium Chloride 0.9% Flush (Ns Flush) (02/06/17 18:45) Hepatic Functional Panel (02/06/17 18:35) Type And Screen (02/06/17 18:35) Clonidine (Catapres) (02/06/17 18:45) Lorazepam Inj (Ativan Inj) (02/06/17 18:45) Pantoprazole Inj (Protonix Inj) (02/06/17 18:45) Lorazepam Inj (Ativan Inj) (02/06/17 20:30) Admit Order (Ed Use Only) (02/06/17 ) Labs Laboratory Tests Test 02/06/17 18:40 02/06/17 19:20 White Blood Count 9.7 TH/MM3 Red Blood Count 4.76 MIL/MM3 Hemoglobin 15.3 GM/DL Hematocrit 44.5 % Mean Corpuscular Volume 93.5 FL Mean Corpuscular Hemoglobin 32.0 PG Mean Corpuscular Hemoglobin Concent 34.3 % Red Cell Distribution Width 13.6 % Platelet Count 111 TH/MM3 Mean Platelet Volume 7.1 FL Neutrophils (%) (Auto) 71.5 % Lymphocytes (%) (Auto) 16.7 % Monocytes (%) (Auto) 10.7 % Eosinophils (%) (Auto) 0.3 % Basophils (%) (Auto) 0.8 % Neutrophils # (Auto) 7.0 TH/MM3 Lymphocytes # (Auto) 1.6 TH/MM3 Monocytes # (Auto) 1.0 TH/MM3 Eosinophils # (Auto) 0.0 TH/MM3 Basophils # (Auto) 0.1 TH/MM3 CBC Comment DIFF FINAL Differential Comment Prothrombin Time 12.5 SEC Prothromb Time International Ratio 1.1 RATIO Activated Partial Thromboplast Time 28.0 SEC Blood Urea Nitrogen 8 MG/DL Creatinine 0.71 MG/DL Random Glucose 104 MG/DL Total Protein 9.5 GM/DL Albumin 3.7 GM/DL Calcium Level 9.1 MG/DL Alkaline Phosphatase 122 U/L Aspartate Amino Transf (AST/SGOT) 79 U/L Alanine Aminotransferase (ALT/SGPT) 57 U/L Total Bilirubin 1.4 MG/DL Direct Bilirubin 0.5 MG/DL Sodium Level 129 MEQ/L Potassium Level 3.5 MEQ/L Chloride Level 96 MEQ/L Carbon Dioxide Level 24.4 MEQ/L Anion Gap 9 MEQ/L Estimat Glomerular Filtration Rate 117 ML/MIN Indirect Bilirubin 0.9 MG/DL Lipase 189 U/L Lactic Acid Level 1.0 mmol/L MDM Medical Decision Making Medical Screen Exam Complete: Yes Emergency Medical Condition: Yes Medical Record Reviewed: Yes Differential Diagnosis Alcohol withdrawal versus opiate withdrawal versus gastritis versus gastroenteritis versus GI bleed Narrative Course Patient is a 51-year-old male comes in complaining of nausea vomiting, blood in his vomit. Exam shows he is very tremulous with tongue fasciculations. IV established, labs sent. Patient given IV fluids, Zofran, clonidine. Given 2 mg of Ativan. Labs show a total bilirubin of 1.5. He has had this result in the past. She does have a history of hepatitis C. Patient does drink alcohol chronically, but has been trying to quit, he has not had alcohol in 5 days. I believe he is going to call withdrawal. He is given a second dose of Ativan due to continued tremors. He'll be admitted for further management. Diagnosis Primary Impression: Alcohol withdrawal Qualified Codes: F10.230 - Alcohol dependence with withdrawal, uncomplicated Admitting Information Admitting Physician Requests: Admit Condition: Stable Leandra Rehman MD Feb 06, 2017 19:55
[2017-02-06 20:13] VITALS: BP 159/87; PULSE 82; RESP 18; O2SAT 99
[2017-02-06] MEDS ORDERED: IOHEXOL 350 MG/ML 10 ML VIAL (for RAD DIAG) IVCONTRAST ONE (20:59)
[2017-02-06] MEDS ORDERED: THIAMINE HCL 100 MG TAB PO ONE (21:15)
[2017-02-06] MEDS ORDERED: NALOXONE HCL 0.4 MG/ML AMP IV PRN (21:15)
[2017-02-06] MEDS ORDERED: FLUMAZENIL 0.5 MG/5 ML VIAL IV PUSH PRN (21:15)
[2017-02-06 21:55] VITALS: BP 152/82; PULSE 88; RESP 18; O2SAT 99
[2017-02-06 23:00] VITALS: PULSE 78
[2017-02-07] VITALS (7 sets, daily range): BP systolic 148–178; BP diastolic 94–110; PULSE 68–83; RESP 16–20; TEMP 97–98.3; O2SAT 95–99
[2017-02-07] MEDS: LORazepam 2 MG/ML VIAL IV PUSH PRN ×2 (00:06→05:49)
[2017-02-07 06:54] LABS: BASOPHIL # 0.1 TH/MM3 (0-0.2); BASOPHIL % 1.1 % (0.0-2.0); EOSINOPHIL # 0.2 TH/MM3 (0-0.4); EOSINOPHIL % 3.1 % (0.0-4.0); HEMATOCRIT 40.8 % (39.0-51.0); LYMPH % 28.6 % (9.0-44.0); LYMPHOCYTE # 1.6 TH/MM3 (1.0-4.8); MEAN CELL VOLUME 93.7 FL (80.0-100.0); MEAN CORPUSCULAR HEMOGLOBIN 31.4 PG (27.0-34.0); MEAN CORPUSCULAR HGB CONC 33.5 % (32.0-36.0); MONO % 12.8 % (0.0-8.0); NEUT % 54.4 % (16.0-70.0); PLATELET COUNT 80 TH/MM3 (150-450); RED BLOOD COUNT 4.36 MIL/MM3 (4.50-5.90); RED CELL DISTRIBUTION WIDTH 13.5 % (11.6-17.2); WHITE BLOOD COUNT 5.6 TH/MM3 (4.0-11.0)
[2017-02-07 06:55] LABS: HEMO FLAGS AUTO DIFF
[2017-02-07 06:57] LABS: BICARBONATE 26.9 MEQ/L (21.0-32.0)
[2017-02-07 07:20] LABS: SCAN/DIFF AUTO DIFF CONFIRMED
[2017-02-07] MEDS: THIAMINE HCL 100 MG TAB PO SCH (08:36)
[2017-02-07] MEDS: SODIUM CHLORIDE 0.9% FLUSH 10 ML FLUSH IV FLUSH SCH ×2 (08:36→21:12)
[2017-02-07] MEDS ORDERED: METH5SOL11 PO (09:43)
[2017-02-07] MEDS: METHADONE HCL 10 MG TAB PO SCH (10:26)
[2017-02-07] MEDS ORDERED: FOLIC ACID 1 MG TAB PO SCH (13:00)
[2017-02-07] MEDS ORDERED: POTASSIUM CHLORIDE 10 MEQ CONTROLLED RELEASE TAB PO ONE (13:00)
[2017-02-07] MEDS ORDERED: ACETAMINOPHEN 325 MG TAB PO PRN ×2 (13:15→20:00)
--- NOTE | 2017-02-07 13:17 | HHI.HP ---
[facility] Primary [facility] Physician No Primary Care Physician Admission Diagnosis Alcohol withdrawal Diagnoses: Chief Complaint: vomiting blood Travel History International Travel<30 Days: No Contact w/Intl Traveler <30 Da: No Traveled to Known Affected Are: No History of Present Illness Patient is a 51 year male with a long history of alcohol dependency who came to the er afte 5 days vomiting and finally vomiting a small amount of blood. He also has had epigastric and abdominal discomfort which he describes as reflux and for which he take TUMS. He had started wretching after abruptly stopping drinking 5 days ago. He takes liquid methadone and thought the discomfort was worse after he took this medicine. He has not had any chest pain or light headedness or dizziness. There is no melena or hematochezia. He has had a mild drop in his Hg since admission. He had tremors and was concerned about withdrawal in the ER. He is admitted to the hospital for these complaints. Review of Systems Constitutional: COMPLAINS OF: Diaphoretic episodes, Fatigue, Fever, Weight gain , Weight loss, Chills, Dizziness, Change in appetite, Night Sweats Endocrine: DENIES: Heat/cold intolerance, Polydipsia, Polyuria, Polyphagia Eyes: DENIES: Blurred vision, Diplopia, Eye inflammation, Eye pain, Vision loss , Photosensitivity, Double Vision Ears, nose, mouth, throat: DENIES: Tinnitus, Hearing loss, Vertigo, Nasal discharge, Oral lesions, Throat pain, Hoarseness, Ear Pain, Running Nose, Epistaxis, Sinus Pain, Toothache, Odynophagia Cardiovascular: DENIES: Chest pain, Palpitations, Syncope, Dyspnea on Exertion , PND, Lower Extremity Edema, Orthopnea, Claudication Gastrointestinal: COMPLAINS OF: Abdominal pain, Nausea, DENIES: Black stools, Bloody stools, Constipation, Diarrhea, Vomiting, Difficulty Swallowing, Anorexia Genitourinary: DENIES: Sexual dysfunction, Urinary frequency, Urinary incontinence, Urgency, Hematuria, Dysuria, Nocturia, Penile Discharge, Testicular Pain, Testicular Swelling Integumentary: DENIES: Abnormal pigmentation, Nail changes, Pruritus, Rash Hematologic/lymphatic: DENIES: Bruising, Lymphadenopathy Immunologic/allergic: DENIES: Eczema, Urticaria Neurologic: DENIES: Abnormal gait, Headache, Localized weakness, Paresthesias, Seizures, Speech Problems, Tremor, Poor Balance Psychiatric: COMPLAINS OF: Anxiety, Agitation, DENIES: Confusion, Mood changes , Depression, Hallucinations, Suicidal Ideation, Homicidal Ideation, Delusions Past Family Social History Past Medical History Hep C Chronic pain\methadone dependence Etoh dependence gerd Past Surgical History ankle repair Reported Medications reviewed in the EMR, tums occasionally Allergies: Coded Allergies: No Known Allergies (Verified , 02/06/17) Active Ordered Medications reviewed in the EMR Family History Mom has polio father had AMI in his 60's Social History 2 ppd tobacco 12 beer daily at least lives with family Physical Exam Vital Signs Vital Signs Date Time Temp Pulse Resp B/P (MAP) Pulse Ox O2 Delivery O2 Flow Rate FiO2 02/07/17 11:35 18 02/07/17 08:00 97.4 68 18 148/94 (112) 99 02/07/17 04:00 98.2 76 18 178/106 (130) 96 02/07/17 00:00 98.3 71 20 156/96 (116) 97 02/06/17 23:00 78 02/06/17 21:55 88 18 152/82 (105) 99 Nasal Cannula 02/06/17 20:13 82 18 159/87 (111) 99 Room Air 02/06/17 19:31 78 18 153/89 (110) 98 Room Air 02/06/17 19:20 78 18 161/85 (110) 98 Room Air 02/06/17 18:24 99.5 91 18 201/94 (129) 97 Physical Exam GENERAL: This is a well-nourished, well-developed patient, tremors SKIN: No rashes, ecchymoses or lesions. Cool and dry. HEAD: Atraumatic. Normocephalic. No temporal or scalp tenderness. EYES: Pupils equal round and reactive. Extraocular motions intact. No scleral icterus. No injection or drainage. ENT: Nose without bleeding, purulent drainage or septal hematoma. Throat without erythema, tonsillar hypertrophy or exudate. Uvula midline. Airway patent. NECK: Trachea midline. No JVD or lymphadenopathy. Supple, nontender, no meningeal signs. CARDIOVASCULAR: Regular rate and rhythm without murmurs, gallops, or rubs. RESPIRATORY: Clear to auscultation. Breath sounds equal bilaterally. No wheezes , rales, or rhonchi. GASTROINTESTINAL: Abdomen soft, non-tender, nondistended. No hepato-splenomegaly , or palpable masses. No guarding. MUSCULOSKELETAL: Extremities without clubbing, cyanosis, or edema. No joint tenderness, effusion, or edema noted. No calf tenderness. Negative Homans sign bilaterally. NEUROLOGICAL: Awake and alert. Cranial nerves II through XII intact. Motor and sensory grossly within normal limits. Five out of 5 muscle strength in all muscle groups. Normal speech. Laboratory Laboratory Tests Test 02/06/17 18:40 02/06/17 19:20 02/07/17 05:27 White Blood Count 9.7 5.6 Red Blood Count 4.76 4.36 Hemoglobin 15.3 13.7 Hematocrit 44.5 40.8 Mean Corpuscular Volume 93.5 93.7 Mean Corpuscular Hemoglobin 32.0 31.4 Mean Corpuscular Hemoglobin Concent 34.3 33.5 Red Cell Distribution Width 13.6 13.5 Platelet Count 111 80 Mean Platelet Volume 7.1 7.6 Neutrophils (%) (Auto) 71.5 54.4 Lymphocytes (%) (Auto) 16.7 28.6 Monocytes (%) (Auto) 10.7 12.8 Eosinophils (%) (Auto) 0.3 3.1 Basophils (%) (Auto) 0.8 1.1 Neutrophils # (Auto) 7.0 3.0 Lymphocytes # (Auto) 1.6 1.6 Monocytes # (Auto) 1.0 0.7 Eosinophils # (Auto) 0.0 0.2 Basophils # (Auto) 0.1 0.1 CBC Comment DIFF FINAL AUTO DIFF Differential Comment AUTO DIFF CONFIRMED Prothrombin Time 12.5 Prothromb Time International Ratio 1.1 Activated Partial Thromboplast Time 28.0 Blood Urea Nitrogen 8 11 Creatinine 0.71 0.61 Random Glucose 104 99 Total Protein 9.5 Albumin 3.7 Calcium Level 9.1 8.3 Alkaline Phosphatase 122 Aspartate Amino Transf (AST/SGOT) 79 Alanine Aminotransferase (ALT/SGPT) 57 Total Bilirubin 1.4 Direct Bilirubin 0.5 Sodium Level 129 131 Potassium Level 3.5 3.0 Chloride Level 96 97 Carbon Dioxide Level 24.4 26.9 Anion Gap 9 7 Estimat Glomerular Filtration Rate 117 139 Indirect Bilirubin 0.9 Lipase 189 Lactic Acid Level 1.0 Result Diagram: 02/07/1752602/07/17526 Caprini VTE Risk Assessment Geerinmelissa VTE Risk Assessment: Mod/High Risk (score >= 2) VTE Pharm Contraindication: High risk for bleeding Geerini Risk Assessment Model Point Value = 1 Point Value = 2 Point Value = 3 Point Value = 5 Age 41-60 Minor surgery BMI > 25 kg/m2 Swollen legs Varicose veins or History of unexplained or recurrent spontaneous Oral contraceptives or hormone replacement Sepsis (< 1 month) Serious lung disease, including pneumonia (< 1 month) Abnormal pulmonary function Acute myocardial infarction Congestive heart failure (< 1 month) History of inflammatory bowel disease Medical patient at bed rest Age 61-74 Arthroscopic surgery Major open surgery (> 45 min) Laparoscopic surgery (> 45 min) Malignancy Confined to bed (> 72 hours) Immobilizing plaster cast Central venous access Age >= 75 History of VTE Family history of VTE Factor V Leiden Prothrombin [id number] Lupus anticoagulant Anticardiolipin antibodies Elevated serum homocysteine Heparin-induced thrombocytopenia Other congenital or acquired thrombophilia Stroke (< 1 month) Elective arthroplasty Hip, pelvis, or leg fracture Acute spinal cord injury (< 1 month) Prophylaxis Regimen Total Risk Factor Score Risk Level Prophylaxis Regimen 0-1 Low Early ambulation 2 Moderate Order ONE of the following: *Sequential Compression Device (SCD) *Heparin 5000 units SQ BID 3-4 Higher Order ONE of the following medications: *Heparin 5000 units SQ TID *Enoxaparin/Lovenox 40 mg SQ daily (WT < 150 kg, CrCl > 30 mL/min) *Enoxaparin/Lovenox 30 mg SQ daily (WT < 150 kg, CrCl > 10-29 mL/min) *Enoxaparin/Lovenox 30 mg SQ BID (WT < 150 kg, CrCl > 30 mL/min) AND/OR *Sequential Compression Device (SCD) 5 or more Highest Order ONE of the following medications: *Heparin 5000 units SQ TID (Preferred with Epidurals) *Enoxaparin/Lovenox 40 mg SQ daily (WT < 150 kg, CrCl > 30 mL/min) *Enoxaparin/Lovenox 30 mg SQ daily (WT < 150 kg, CrCl > 10-29 mL/min) *Enoxaparin/Lovenox 30 mg SQ BID (WT < 150 kg, CrCl > 30 mL/min) AND *Sequential Compression Device (SCD) Assessment and Plan Problem List: (1) Hematemesis ICD Code: K92.0 - Hematemesis Plan: PPI Hg a bit lower, but stable no further bleeding since admission if further episodes, may need gi endoscopy (2) Alcohol withdrawal ICD Code: F10.239 - Alcohol dependence with withdrawal, unspecified Status: Acute Plan: continue medical management with ativan, vitamin support follow electrolytes and replace hypokalemia Outpatient follow up from clonidine for BP management ativan as needed (3) Methadone dependence ICD Code: F11.20 - Opioid dependence, uncomplicated Plan: resume methadone (dose from methadone clinic confirmed) (4) LFT elevation ICD Code: R79.89 - Other specified abnormal findings of blood chemistry Plan: follow trend after hydration hx hep c and etoh dep Code Status full code Discussed Condition With patient Case management Physician Certification 2 Midnight Certification Type: Admission for Inpatient Services Order for Inpatient Services The services are ordered in accordance with Medicare regulations or non- Medicare payer requirements, as applicable. In the case of services not specified as inpatient-only, they are appropriately provided as inpatient services in accordance with the 2-midnight benchmark. Estimated LOS (days): 2 2 days is the estimated time the patient will need to remain in the hospital, assuming treatment plan goals are met and no additional complications. Post-Hospital Plan: Home Problem Qualifiers (1) Alcohol withdrawal: Qualified Codes: F10.230 - Alcohol dependence with withdrawal, uncomplicated Calli Baker MD Feb 07, 2017 13:17
[2017-02-07] MEDS: PANTOPRAZOLE SOD 40 MG DELAYED RELEASE TAB PO SCH (13:42)
[2017-02-07] MEDS: cloNIDine HCL 0.1 MG TAB PO PRN (13:42)
[2017-02-07] MEDS: SODIUM CHLOR 0.9% 1000 ML INJ 1,000 ML IV SCH ×2 (13:43→23:33)
[2017-02-07] MEDS: NICOTINE 21 MG/24 HR PATCH T-DERMAL SCH (13:43)
[2017-02-07] MEDS ORDERED: DIATRIZOATE MEGLUM/DIATRIZOATE SOD 9 ML CUP PO ONE (18:30)
[2017-02-07] MEDS ORDERED: LORazepam 1 MG TAB PO PRN (20:00)
[2017-02-07] MEDS ORDERED: NALOXONE HCL 0.4 MG/ML AMP IV PRN (20:00)
[2017-02-07] MEDS ORDERED: FLUMAZENIL 0.5 MG/5 ML VIAL IV PUSH PRN (20:00)
[2017-02-07] MEDS ORDERED: ONDANSETRON HCL 4 MG/2 ML VIAL IVP PRN (20:00)
[2017-02-07] MEDS ORDERED: MAGNESIUM HYDROXIDE SUSP 30 ML CUP PO PRN (20:00)
[2017-02-07] MEDS ORDERED: LORazepam 2 MG/ML VIAL IV PUSH PRN ×4 (20:00)
[2017-02-07] MEDS ORDERED: SENNOSIDES 8.6 MG TAB PO PRN (20:00)
[2017-02-07] MEDS ORDERED: HALOPERIDOL LACTATE 5 MG/ML AMP IM PRN (20:00)
[2017-02-07] MEDS ORDERED: BISACODYL 10 MG SUPP RECTAL PRN (20:00)
[2017-02-07] MEDS ORDERED: LACTULOSE SYRUP 20 GM/30 ML CUP PO PRN (20:00)
--- NOTE | 2017-02-07 20:00 | HHI.PR ---
Subjective Remarks DRAFT pt not seen F/U GIB Objective Vitals Vital Signs Date Time Temp Pulse Resp B/P (MAP) Pulse Ox O2 Delivery O2 Flow Rate FiO2 02/07/17 16:00 98.1 70 18 154/94 (114) 98 02/07/17 12:00 97.7 80 18 151/110 (124) 98 02/07/17 11:35 18 02/07/17 08:00 97.4 68 18 148/94 (112) 99 02/07/17 04:00 98.2 76 18 178/106 (130) 96 02/07/17 00:00 98.3 71 20 156/96 (116) 97 02/06/17 23:00 78 02/06/17 21:55 88 18 152/82 (105) 99 Nasal Cannula 02/06/17 20:13 82 18 159/87 (111) 99 Room Air I/O 02/06/17 02/06/17 02/06/17 02/07/17 02/07/17 02/07/17 07:00 15:00 23:00 07:00 15:00 23:00 Intake Total 200 ml 600 ml 500 ml 300 ml Balance 200 ml 600 ml 500 ml 300 ml Intake Oral 200 ml 600 ml 500 ml IV Total 300 ml # Voids 2 # Bowel Movements 0 Result Diagram: 02/07/1752602/07/17 05 A/P Problem List: (1) Hematemesis ICD Code: K92.0 - Hematemesis Status: Acute (2) Alcohol withdrawal ICD Code: F10.239 - Alcohol dependence with withdrawal, unspecified Status: Acute (3) Methadone dependence ICD Code: F11.20 - Opioid dependence, uncomplicated Status: Chronic (4) LFT elevation ICD Code: R79.89 - Other specified abnormal findings of blood chemistry Status: Acute Assessment and Plan (1) Hematemesis Ct PPI Hg a bit lower, but stable no further bleeding since admission Gi for endoscopy. CT (2) Alcohol withdrawal continue medical management with ativan, vitamin support(CIWA protocol) follow electrolytes and replace hypokalemia Outpatient follow up from clonidine for BP management ativan as needed (3) Methadone dependence resume methadone (dose from methadone clinic confirmed) (4) LFT elevation follow trend after hydration hx hep c and etoh dep DVT prophylaxis with SCD. Problem Qualifiers (1) Alcohol withdrawal: Qualified Codes: F10.230 - Alcohol dependence with withdrawal, uncomplicated Cornel Louis MD Feb 07, 2017 20:00
[2017-02-07] MEDS: DOCUSATE SODIUM 50 MG/SENNA 8.6 MG TAB PO SCH (21:12)
--- NOTE | 2017-02-07 21:53 | RADRPT ---
EXAM DATE/TIME: 02/07/2017 21:16 [place] COMPARISON: No previous studies available for comparison. INDICATIONS : Abdominal pain. IV CONTRAST: 100 cc Omnipaque 350 (iohexol) IV ORAL CONTRAST: Prescribed oral contrast ingested. RADIATION DOSE: 20.61 CTDIvol (mGy) MEDICAL HISTORY : Pancreatitis. Cardiovascular disease Hepatitis C. SURGICAL HISTORY : None. ENCOUNTER: Initial ACUITY: 1 day PAIN SCALE: 5/10 LOCATION: abdomen TECHNIQUE: Volumetric scanning of the abdomen and pelvis was performed. Using automated exposure control and ad justment of the mA and/or kV according to patient size, radiation dose was kept as low as reasonably achievable to obtain optimal diagnostic quality images. DICOM format image data is available electro nically for review and comparison. FINDINGS: Lung bases demonstrate linear atelectasis or scarring. Mild fatty liver. Spleen, adrenals, kidneys and pancreas unremarkable. No calcified gallstones or jannette iary ductal dilatation. No free fluid or free air. No bowel obstruction. Mild constipation. Appendix appears normal. No acute bony abnormalities. CONCLUSION: 1. No acute findings within the abdomen and pelvis. Mild fatty liver. Linear scarring or atelectasis at the lung bases. Rohit Manning MD on February 07, 2017 at 21:44 Board Certified Radiologist. This report was verified electronically.
[2017-02-07] MEDS: LORazepam 2 MG TAB PO PRN (23:34)
[2017-02-08] VITALS: BP 171/108; PULSE 79; RESP 16; TEMP 98.6; O2SAT 98
[2017-02-08] MEDS: cloNIDine HCL 0.1 MG TAB PO PRN (00:39)
[2017-02-08 04:00] VITALS: BP 142/96; PULSE 68; RESP 16; TEMP 97.6; O2SAT 97
[2017-02-08 05:57] LABS: BASOPHIL # 0.1 TH/MM3 (0-0.2); BASOPHIL % 1.8 % (0.0-2.0); EOSINOPHIL # 0.2 TH/MM3 (0-0.4); EOSINOPHIL % 4.2 % (0.0-4.0); HEMATOCRIT 39.5 % (39.0-51.0); LYMPHOCYTE # 1.4 TH/MM3 (1.0-4.8); MEAN CELL VOLUME 93.8 FL (80.0-100.0); MEAN CORPUSCULAR HGB CONC 34.2 % (32.0-36.0); MONO % 10.8 % (0.0-8.0); NEUT % 50.2 % (16.0-70.0); PLATELET COUNT 63 TH/MM3 (150-450); RED BLOOD COUNT 4.21 MIL/MM3 (4.50-5.90); RED CELL DISTRIBUTION WIDTH 13.5 % (11.6-17.2); WHITE BLOOD COUNT 4.2 TH/MM3 (4.0-11.0)
[2017-02-08 06:00] LABS: HEMO FLAGS DIFF FINAL
[2017-02-08 06:07] LABS: CHLORIDE 98 MEQ/L (98-107); POTASSIUM 3.6 MEQ/L (3.5-5.1); SODIUM (NA) 131 MEQ/L (136-145)
[2017-02-08 06:42] LABS: ALKALINE PHOSPHATASE 89 U/L (45-117); ALT (GPT) 55 U/L (12-78); ANION GAP 6 MEQ/L (5-15); AST (GOT) 68 U/L (15-37); BICARBONATE 27.2 MEQ/L (21.0-32.0); BLOOD UREA NITROGEN 12 MG/DL (7-18); GLOMERULAR FILTRATION RATE 153 ML/MIN (>89); MAGNESIUM 1.9 MG/DL (1.5-2.5); TOTAL BILIRUBIN ADULT 0.6 MG/DL (0.2-1.0)
--- NOTE | 2017-02-08 07:57 | MB ---
cc: SILVIO BAKER MD, BEATRICE S. M.D. DATE OF CONSULTATION 02/07/[address] Silvio Baker. REASON FOR CONSULTATION GI bleed. Elevated liver enzymes. Abdominal pain. HISTORY OF PRESENT ILLNESS Mr. Munoz is a 51-year-old gentleman with history of alcohol use. Five days ago she decided to stop drinking and since then he had nausea and vomiting, abdominal pain mostly in the epigastrium. He also had vomited a large amount of blood yesterday. No further episodes of bleeding since his admission .He does report severe reflux and sometimes dysphagia. He also is taking methadone liquid. He stated he is unable to tolerate that and he was advised by his doctor to consult with a GI specialist to possibly switch his methadone to pills. He stated that he remembers now that he blacked out. He feels that he may have had a seizure. He found himself on the carpet and he had multiple bruises on his knees and hands. His mother told him that he was unresponsive, possible he may have had a seizure. PAST MEDICAL HISTORY 1. Hepatitis C. 2. Chronic pain on methadone. 3. Alcohol dependence. 4. Reflux. PAST SURGICAL HISTORY Ankle repair. MEDICATIONS AT HOME Tums CURRENT MEDICATIONS In the hospital he was placed on - 1. Catapres. 2. Nicotine. 3. Protonix. 4. Methadone. 5. Thiamine. 6. Lorazepam. REVIEW OF SYSTEMS CONSTITUTIONAL: He denies any fever or chills, weight loss or weight gain. ENT: No alteration in baseline hearing or visual acuity. PULMONARY: Denies any chest pain, shortness of breath. GASTROINTESTINAL: As above. GENITOURINARY: Denies dysuria, hematuria. HEMATOLOGIC: Denies any history of anemia or bleeding disorder. SKIN: No alteration in baseline skin lesion. NEUROLOGIC: No history of TIA or CVA symptoms. PHYSICAL EXAMINATION GENERAL: On clinical exam he is sitting comfortably in bed in no acute distress. VITAL SIGNS: Temperature 97.7, pulse 80, respiration 18, blood pressure 151/110. HEENT: PERRLA. NECK: No JVD. No lymphadenopathy. CHEST: Clear to the auscultation and palpation. CARDIOVASCULAR: S1, S2. No murmur. ABDOMEN: Soft to mildly distended. Bowel sounds are present. DIRECTOR OF TRAINING: Awake, alert, oriented x 3. No flapping tremor. EXTREMITIES: He had multiple bruises and scars on his extremities. LABORATORY DATA His total bilirubin is 1.4, direct bilirubin 0.5. AST 79, ALT 57, alkaline phosphatase 122. PT/INR normal. IMAGING STUDIES He had an abdominal CT done earlier this year in July, essentially negative except fracture of left eleventh rib and transverse process of L2-3. IMPRESSION 1. Mr. Munoz is a pleasant 51-year-old gentleman with history of heavy alcohol abuse admitted to the hospital with weakness, nausea, vomiting, hematemesis and abdominal pain. No indication of active bleed at this time. 2. Impending DTs. 3. Mildly elevated liver enzymes most likely secondary to alcohol use. RECOMMENDATIONS 1. CT abdomen and pelvis to evaluate for pancreatitis or any other intraabdominal pathology. 2. Advance diet as tolerated. 3. DVT prevention. 4. Protonix daily. 5. Discussed about stopping alcohol. 6. May need an upper endoscopy before discharge. We will scheduled tentatively for tomorrow morning. Further workup will depend on his clinical status. If not possible tomorrow, possibly Sunday. 7. Supportive care. 8. Monitor H&H closely. I would like to thank Dr. Baker for referring him to our office for consultation. Findings were discussed and plans were discussed with the patient. MD MARY GrantB/SSB /6:01 PM /7:40 AM KEN
[2017-02-08 08:00] VITALS: BP 150/94; PULSE 76; RESP 20; TEMP 97; O2SAT 97
[2017-02-08] MEDS: DOCUSATE SODIUM 50 MG/SENNA 8.6 MG TAB PO SCH ×2 (08:06→21:37)
[2017-02-08] MEDS: MULTIVITAMINS/MINERALS THERAPEUTIC TAB PO SCH (08:06)
[2017-02-08] MEDS: PANTOPRAZOLE SOD 40 MG DELAYED RELEASE TAB PO SCH (08:07)
[2017-02-08] MEDS: FOLIC ACID 1 MG TAB PO SCH (08:07)
[2017-02-08] MEDS: THIAMINE HCL 100 MG TAB PO SCH (08:07)
[2017-02-08] MEDS: METHADONE HCL 10 MG TAB PO SCH (08:09)
[2017-02-08] MEDS: NICOTINE 21 MG/24 HR PATCH T-DERMAL SCH (08:09)
[2017-02-08] MEDS: REMOVE OLD PATCH T-DERMAL SCH (08:09)
[2017-02-08] MEDS: SODIUM CHLORIDE 0.9% FLUSH 10 ML FLUSH IV FLUSH SCH ×2 (08:10→21:37)
[2017-02-08] MEDS: SODIUM CHLOR 0.9% 1000 ML INJ 1,000 ML IV SCH (08:10)
--- NOTE | 2017-02-08 11:58 | HHI.PR ---
Subjective Remarks Follow GI bleed and hypertension. No further vomiting but was nauseous this morning. History of hypertension noncompliant with losartan. Agrees to take clonidine aware of possible rebound hypertension if he stops the medicine abruptly. Discussed with RN, EGMaria Del Carmen tomorrow Objective Vitals Vital Signs Date Time Temp Pulse Resp B/P (MAP) Pulse Ox O2 Delivery O2 Flow Rate FiO2 02/08/17 08:00 97.0 76 20 150/94 (112) 97 02/08/17 04:00 97.6 68 16 142/96 (111) 97 02/08/17 00:00 98.6 79 16 171/108 (129) 98 02/07/17 23:00 68 02/07/17 20:00 97.6 72 16 148/103 (118) 95 02/07/17 16:00 98.1 70 18 154/94 (114) 98 02/07/17 12:00 97.7 80 18 151/110 (124) 98 I/O 02/07/17 02/07/17 02/07/17 02/08/17 02/08/17 02/08/17 06:59 14:59 22:59 06:59 14:59 22:59 Intake Total 600 ml 500 ml 540 ml 300 ml Balance 600 ml 500 ml 540 ml 300 ml Intake Oral 600 ml 500 ml 240 ml 0 ml IV Total 300 ml 300 ml # Voids 2 2 # Bowel Movements 0 Result Diagram: 02/08/17 0450 02/08/17 0450 Imaging Last Impressions Abdomen/Pelvis CT 02/07/17 0000 Signed Impressions: Service Date/Time: Tuesday, February 07, 2017 21:16 - CONCLUSION: 1. No acute findings within the abdomen and pelvis. Mild fatty liver. Linear scarring or atelectasis at the lung bases. Rohit Manning MD Objective Remarks Well-developed, well-nourished in no distress Skin is warm and dry. No rash Clear to auscultation equal in expansion Regular rate and rhythm Abdomen soft and nontender Extremities no edema cyanosis and deformity alert and oriented nonfocal. No tremors and hallucinations A/P Problem List: (1) Hematemesis ICD Code: K92.0 - Hematemesis Status: Acute (2) Alcohol withdrawal ICD Code: F10.239 - Alcohol dependence with withdrawal, unspecified Status: Acute (3) Methadone dependence ICD Code: F11.20 - Opioid dependence, uncomplicated Status: Chronic (4) LFT elevation ICD Code: R79.89 - Other specified abnormal findings of blood chemistry Status: Acute Assessment and Plan (1) Hematemesis. No further episodes Ct PPI Hg stable no further bleeding since admission Gi for endoscopy. CT without acute findings (2) Alcohol withdrawal continue medical management with ativan, vitamin support(CIWA protocol) follow electrolytes and replace hypokalemia Outpatient follow up from [facility] for BP management ativan as needed (3) Methadone dependence resume methadone (dose from methadone clinic confirmed) (4) LFT elevation follow trend after hydration hx hep c and etoh dep Thrombocytopenia. Worsening. No active bleed. Repeat CBC in the morning Hypokalemia. Improving status post replacement Hypertension. Start clonidine and monitor DVT prophylaxis with SCD. Pharmacological prophylaxis contraindicated secondary to GI bleed Problem Qualifiers (1) Alcohol withdrawal: Qualified Codes: F10.230 - Alcohol dependence with withdrawal, uncomplicated Cornel Louis MD Feb 08, 2017 11:58
[2017-02-08 12:00] VITALS: BP 151/98; PULSE 85; RESP 20; TEMP 97.3; O2SAT 96
[2017-02-08] MEDS: LORazepam 2 MG TAB PO PRN ×2 (12:24→21:37)
[2017-02-08] MEDS ORDERED: POTASSIUM CHLORIDE 20 MEQ CONTROLLED RELEASE TAB PO ONE (13:00)
[2017-02-08 16:00] VITALS: BP 141/94; PULSE 78; RESP 20; TEMP 96.3; O2SAT 98
[2017-02-08] MEDS ORDERED: GNP100TA3 PO (17:17)
[2017-02-08] MEDS ORDERED: CLON.1 PO (17:17)
[2017-02-08] MEDS ORDERED: CHLO25CA9 PO (17:17)
[2017-02-08] MEDS ORDERED: PANT40TA3 PO (17:17)
--- NOTE | 2017-02-08 17:17 | HHI.DCPOC ---
Discharge Care Plan Diagnosis: (1) Alcohol withdrawal (2) Hematemesis Your Health Problems Are: Difficulty with ADL Exercise Tolerance Goals to Promote Your Health * To prevent worsening of your condition and complications * To maintain your health at the optimal level Directions to Meet Your Goals Take your medications as prescribed Follow your dietary instruction Follow activity as directed Keep your appointments as scheduled Take your immunizations and boosters as scheduled If your symptoms worsen call your PCP, if no PCP go to Urgent Care Center or Emergency Room Smoking is Dangerous to Your Health. Avoid second hand smoke Call the 24-hour hour crisis hotline for domestic abuse at Cornel Louis MD Feb 08, 2017 17:17
[2017-02-08 20:00] VITALS: BP 151/94; PULSE 70; RESP 18; TEMP 97.8; O2SAT 95
[2017-02-08] MEDS: cloNIDine HCL 0.1 MG TAB PO SCH (21:37)
[2017-02-09] VITALS: BP 140/92; PULSE 67; RESP 18; TEMP 97.2; O2SAT 95
[2017-02-09 04:00] VITALS: BP 138/97; PULSE 76; RESP 18; TEMP 97.1; O2SAT 96
[2017-02-09] MEDS: LORazepam 2 MG TAB PO PRN (06:25)
[2017-02-09 06:50] VITALS: BP 138/97; PULSE 76; RESP 18; TEMP 97.1; O2SAT 96
[2017-02-09] MEDS ORDERED: PROPOFOL 200 MG/20 ML AMP IV ONE (07:45)
--- NOTE | 2017-02-09 07:48 | GIPROC ---
[facility] [address] [place] [address], [id number] EGD PROCEDURE REPORT EXAM DATE: 02/09/2017 PATIENT NAME: Sam Munoz MR #: [id number] BIRTHDATE: 1965 ATTENDING: Kassandra Powers MD ORDER #: [id number] SUPERINTENDENT MARINE: Kurtis Eaton and Melanie Hurtado STATUS: inpatient INDICATIONS: The patient is a 51 yr old male here for an EGD due to nausea, vomiting PROCEDURE PERFORMED: EGD w/ biopsy MEDICATIONS: None and Per Anesthesia. TOPICAL ANESTHETIC: none CONSENT: The patient understands the risks and benefits of the procedure and understands that these risks include, but are not limited to: sedation, allergic reaction, infection, perforation and/or bleeding. Alternative means of evaluation and treatment include, among others: physical exam, x-rays, and/or surgical intervention. The patient elects to proceed with this endoscopic procedure. medical equipment was checked for proper function. Hand hygiene and appropriate measures for infection prevention was taken. After the risks, benefits and alternatives of the procedure were thoroughly explained, Informed consent was verified, confirmed and timeout was successfully executed by the treatment team. The patient was anesthetized with topical anesthesia and the Pentax [id number] endoscope was introduced through the mouth and advanced to the second portion of the duodenum. Retroflexed views revealed a hiatal hernia The gastroscope was then slowly withdrawn and removed. Gastritis antrum-biopsy duodenitis duodenal bulb-biopsy Schneider's eocthulne-03-01 cm, biopsies from 40, 38, 36 cm NBI scope used-no dysplasia white deposits possible nelida. ADVERSE EVENTS: There were no complications. IMPRESSIONS: 1. Gastritis antrum-biopsy duodenitis duodenal bulb-biopsy Schneider's srqjtqxua-74-56 cm, biopsies from 40, 38, 36 cm NBI scope used-no dysplasia white deposits possible nelida 2. Retroflexed views revealed a hiatal hernia RECOMMENDATIONS: 1. Await biopsy results. Biopsy results will not be ready for 7-10 days. If you don't hear from us in two weeks, call our office for biopsy results. 2. Anti-reflux regimen 3. Continue PPI 4. Diflucan 100 mg po daily- 7 days ok to [place] home from [facility] in 8 weeks avoid etoh PATIENT CONDITION: stable DISPOSITION: Inpatient REPEAT EXAM: EGD pending biopsy results Kassandra Powers MD eSigned: Kassandra Powers MD 02/09/2017 7:48 AM cc: PATIENT NAME: Sam Munoz MR#: [id number]
[2017-02-09] MEDS: SODIUM CHLORIDE 0.9% FLUSH 10 ML FLUSH IV FLUSH SCH (08:54)
[2017-02-09] MEDS: cloNIDine HCL 0.1 MG TAB PO SCH (08:54)
[2017-02-09] MEDS: DOCUSATE SODIUM 50 MG/SENNA 8.6 MG TAB PO SCH (08:54)
[2017-02-09] MEDS: REMOVE OLD PATCH T-DERMAL SCH (08:55)
[2017-02-09] MEDS: MULTIVITAMINS/MINERALS THERAPEUTIC TAB PO SCH (08:55)
[2017-02-09] MEDS: FOLIC ACID 1 MG TAB PO SCH (08:55)
[2017-02-09] MEDS: THIAMINE HCL 100 MG TAB PO SCH (08:55)
[2017-02-09] MEDS: NICOTINE 21 MG/24 HR PATCH T-DERMAL SCH (08:55)
[2017-02-09] MEDS: PANTOPRAZOLE SOD 40 MG DELAYED RELEASE TAB PO SCH (08:55)
[2017-02-09] MEDS: METHADONE HCL 10 MG TAB PO SCH (08:56)
[2017-02-09] MEDS ORDERED: NYSTATIN SUSP 500,000 U/5 ML CUP SWISH-SWAL SCH (09:00)
[2017-02-09] MEDS ORDERED: DIFL100T PO (09:25)
[2017-02-09] MEDS ORDERED: NYST1000 SWISH-SWAL (09:25)
[2017-02-09 09:58] LABS: AUTOMATED NEUTROPHIL # 2.9 TH/MM3 (1.8-7.7); BASOPHIL % 0.9 % (0.0-2.0); EOSINOPHIL # 0.1 TH/MM3 (0-0.4); EOSINOPHIL % 3.3 % (0.0-4.0); HEMATOCRIT 43.2 % (39.0-51.0); LYMPH % 22.6 % (9.0-44.0); MEAN CELL VOLUME 94.7 FL (80.0-100.0); MEAN CORPUSCULAR HEMOGLOBIN 32.1 PG (27.0-34.0); MEAN CORPUSCULAR HGB CONC 33.9 % (32.0-36.0); MONO % 11.1 % (0.0-8.0); NEUT % 62.1 % (16.0-70.0); PLATELET COUNT 87 TH/MM3 (150-450); RED BLOOD COUNT 4.56 MIL/MM3 (4.50-5.90); RED CELL DISTRIBUTION WIDTH 13.6 % (11.6-17.2); WHITE BLOOD COUNT 4.5 TH/MM3 (4.0-11.0)
[2017-02-09 10:00] LABS: HEMO FLAGS AUTO DIFF
[2017-02-09] MEDS ORDERED: FLUCONAZOLE 100 MG TAB PO SCH (10:00)
[2017-02-09 10:15] LABS: CHLORIDE 96 MEQ/L (98-107); POTASSIUM 3.9 MEQ/L (3.5-5.1); SODIUM (NA) 131 MEQ/L (136-145)
[2017-02-09 10:22] LABS: PLATELET ESTIMATE SMEAR LOW (NORMAL); PLATELET MORPHOLOGY NORMAL (NORMAL); SCAN/DIFF AUTO DIFF CONFIRMED
[2017-02-09 11:28] LABS: ALKALINE PHOSPHATASE 90 U/L (45-117); ALT (GPT) 72 U/L (12-78); ANION GAP 7 MEQ/L (5-15); AST (GOT) 79 U/L (15-37); BICARBONATE 27.8 MEQ/L (21.0-32.0); BLOOD UREA NITROGEN 12 MG/DL (7-18); GLOMERULAR FILTRATION RATE 125 ML/MIN (>89); TOTAL BILIRUBIN ADULT 0.8 MG/DL (0.2-1.0)
--- NOTE | 2017-02-09 11:38 | HHI.PR ---
Subjective Remarks Follow-up GI bleed. No further bleeding. Tolerated EGD results discussed with patient Objective Vitals Vital Signs Date Time Temp Pulse Resp B/P (MAP) Pulse Ox O2 Delivery O2 Flow Rate FiO2 02/09/17 07:56 98.4 81 16 135/90 (105) 93 02/09/17 06:50 97.1 76 18 138/97 (111) 96 02/09/17 04:00 97.1 76 18 138/97 (111) 96 02/09/17 00:00 97.2 67 18 140/92 (108) 95 02/08/17 20:00 97.8 70 18 151/94 (113) 95 02/08/17 16:00 96.3 78 20 141/94 (110) 98 02/08/17 12:00 97.3 85 20 151/98 (115) 96 I/O 02/08/17 02/08/17 02/08/17 02/09/17 02/09/17 02/09/17 07:00 15:00 23:00 07:00 15:00 23:00 Intake Total 300 ml 930 ml 420 ml 200 ml Balance 300 ml 930 ml 420 ml 200 ml Intake Oral 0 ml 930 ml 420 ml IV Total 300 ml Other 200 ml # Voids 2 3 3 # Bowel Movements 0 0 Result Diagram: 02/09/17 0950 02/09/17 0950 Objective Remarks Well-developed, well-nourished in no distress Skin is warm and dry. No rash Clear to auscultation equal in expansion Regular rate and rhythm Abdomen soft and nontender Extremities no edema cyanosis and deformity alert and oriented nonfocal. No tremors and hallucinations Procedures EGD A/P Problem List: (1) Hematemesis ICD Code: K92.0 - Hematemesis Status: Acute (2) Alcohol withdrawal ICD Code: F10.239 - Alcohol dependence with withdrawal, unspecified Status: Acute (3) Methadone dependence ICD Code: F11.20 - Opioid dependence, uncomplicated Status: Chronic (4) LFT elevation ICD Code: R79.89 - Other specified abnormal findings of blood chemistry Status: Acute Assessment and Plan (1) Hematemesis. No further episodes Ct PPI Hg stable no further bleeding since admission ACT without acute findings EGD with gastritis and duodenitis status post biopsy, biopsy esophagus and possible nelida. Also has hiatal hernia. Continue PPI and start nystatin swish and swallow and Diflucan. Antireflux mechanisms discussed with the patient. Follow-up biopsy with GI (2) Alcohol withdrawal. Stable continue medical management with ativan, vitamin support(CIWA protocol) follow electrolytes and replace hypokalemia Outpatient follow up from clonidine for BP management ativan as needed (3) Methadone dependence resume methadone (dose from methadone clinic confirmed) (4) LFT elevation follow trend after hydration hx hep c and etoh dep Thrombocytopenia. Stable likely secondary to alcohol No active bleed. Follow- up CBC outpatient Hypokalemia. Improving status post replacement Hypertension. Stable continue clonidine and monitor DVT prophylaxis with SCD. Pharmacological prophylaxis contraindicated secondary to GI bleed Problem Qualifiers (1) Alcohol withdrawal: Qualified Codes: F10.230 - Alcohol dependence with withdrawal, uncomplicated AbandoCornel MD Feb 09, 2017 11:38
[2017-02-09 12:09] VITALS: BP 148/96; PULSE 81; RESP 19; TEMP 96.9; O2SAT 96
--- NOTE | 2017-02-09 13:29 | HHI.DS ---
Discharge Summary Admission Date Feb 08, 2017 at 10:00 Discharge Date: Feb 09, 2017 Admitting Diagnosis Alcohol withdrawal (1) Hematemesis ICD Code: K92.0 - Hematemesis Diagnosis: Principal Status: Acute (2) Alcohol withdrawal ICD Code: F10.239 - Alcohol dependence with withdrawal, unspecified Diagnosis: Principal Status: Acute (3) Methadone dependence ICD Code: F11.20 - Opioid dependence, uncomplicated Diagnosis: Secondary Status: Chronic (4) LFT elevation ICD Code: R79.89 - Other specified abnormal findings of blood chemistry Diagnosis: Principal Status: Acute Procedures EGD Brief History - From Admission Patient is a 51 year male with a long history of alcohol dependency who came to the er afte 5 days vomiting and finally vomiting a small amount of blood. He also has had epigastric and abdominal discomfort which he describes as reflux and for which he take TUMS. He had started wretching after abruptly stopping drinking 5 days ago. He takes liquid methadone and thought the discomfort was worse after he took this medicine. He has not had any chest pain or light headedness or dizziness. There is no melena or hematochezia. He has had a mild drop in his Hg since admission. He had tremors and was concerned about withdrawal in the ER. He is admitted to the hospital for these complaints. CBC/BMP: 02/09/17 0950 02/09/17 0950 Significant Findings Laboratory Tests Test 02/06/17 18:40 02/06/17 19:20 02/07/17 05:27 02/08/17 04:50 Platelet Count 111 TH/MM3 (150-450) 80 TH/MM3 (150-450) 63 TH/MM3 (150-450) Neutrophils (%) (Auto) 71.5 % (16.0-70.0) Monocytes (%) (Auto) 10.7 % (0.0-8.0) 12.8 % (0.0-8.0) 10.8 % (0.0-8.0) Monocytes # (Auto) 1.0 TH/MM3 (0-0.9) Prothrombin Time 12.5 SEC (9.8-11.6) Total Protein 9.5 GM/DL (6.4-8.2) Alkaline Phosphatase 122 U/L (45-117) Aspartate Amino Transf (AST/SGOT) 79 U/L (15-37) 68 U/L (15-37) Total Bilirubin 1.4 MG/DL (0.2-1.0) Direct Bilirubin 0.5 MG/DL (0.0-0.2) Sodium Level 129 MEQ/L (136-145) 131 MEQ/L (136-145) 131 MEQ/L (136-145) Chloride Level 96 MEQ/L (98-107) 97 MEQ/L (98-107) Indirect Bilirubin 0.9 MG/DL (0.0-0.8) Red Blood Count 4.36 MIL/MM3 (4.50-5.90) 4.21 MIL/MM3 (4.50-5.90) Calcium Level 8.3 MG/DL (8.5-10.1) 8.4 MG/DL (8.5-10.1) Potassium Level 3.0 MEQ/L (3.5-5.1) Eosinophils (%) (Auto) 4.2 % (0.0-4.0) Creatinine 0.56 MG/DL (0.60-1.30) Albumin 3.0 GM/DL (3.4-5.0) Test 02/09/17 09:50 Platelet Count 87 TH/MM3 (150-450) Monocytes (%) (Auto) 11.1 % (0.0-8.0) Platelet Estimate LOW (NORMAL) Random Glucose 111 MG/DL (74-106) Total Protein 8.8 GM/DL (6.4-8.2) Aspartate Amino Transf (AST/SGOT) 79 U/L (15-37) Sodium Level 131 MEQ/L (136-145) Chloride Level 96 MEQ/L (98-107) Imaging Last Impressions Abdomen/Pelvis CT 02/07/17 0000 Signed Impressions: Service Date/Time: Tuesday, February 07, 2017 21:16 - CONCLUSION: 1. No acute findings within the abdomen and pelvis. Mild fatty liver. Linear scarring or atelectasis at the lung bases. Rohit Manning MD PE at Discharge Well-developed, well-nourished in no distress Skin is warm and dry. No rash Clear to auscultation equal in expansion Regular rate and rhythm Abdomen soft and nontender Extremities no edema cyanosis and deformity alert and oriented nonfocal. No tremors and hallucinations Hospital Course (1) Hematemesis. No further episodes Ct PPI Hg stable no further bleeding since admission ACT without acute findings EGD with gastritis and duodenitis status post biopsy, biopsy esophagus and possible nelida. Also has hiatal hernia. Continue PPI and start nystatin swish and swallow and Diflucan. Antireflux mechanisms discussed with the patient. Follow-up biopsy with GI (2) Alcohol withdrawal. Stable continue medical management with ativan, vitamin support(CIWA protocol) follow electrolytes and replace hypokalemia Outpatient follow up from [facility] for BP management ativan as needed (3) Methadone dependence resume methadone (dose from methadone clinic confirmed) (4) LFT elevation follow trend after hydration hx hep c and etoh dep Thrombocytopenia. Stable likely secondary to alcohol No active bleed. Follow- up CBC outpatient Hypokalemia. Improving status post replacement Hypertension. Stable continue clonidine and monitor DVT prophylaxis with SCD. Pharmacological prophylaxis contraindicated secondary to GI bleed Pt Condition on Discharge: Stable Discharge Disposition: Discharge Home Discharge Time: > 30 minutes Discharge Instructions DIET: Follow Instructions for: Heart Healthy Diet Activities you can perform: Regular-No Restrictions Activities to Avoid: Driving Follow up Referrals: Gastroenterology - 1 Week PCP Follow-up - 1 Week New Medications: Fluconazole (Diflucan) 100 Mg Tab 100 MG PO DAILY for Infection for 9 Days, #9 TAB 0 Refills Clonidine (Catapres) 0.1 Mg Tab 0.1 MG PO Q12HR for Blood Pressure Management, #60 TAB Nystatin Liq (Nystatin Liq) 100,000 unit/ml Susp 5 ML SWISH-SWAL QID for Infection, #280 UNIT Pantoprazole (Pantoprazole) 40 Mg Tab 40 MG PO DAILY for Manage Heartburn, #30 TAB Thiamine HCl (Gnp Vitamin B-1) 100 Mg Tab 100 MG PO DAILY for Alcohol Detox, #30 TAB Continued Medications: Methadone Liq (Methadone Liq) 1 Mg/Ml Liqd 130 MG PO DAILY, #120 ML 0 Refills Cornel Louis MD Feb 09, 2017 13:29
== END 2017-02-09 13:47 | disposition home or self-care (01) | DRG 378 ==
LOC: PHED 18:18 → PHEDA 20:58 → PH3A 23:33 → OBSVTOIN 02-08 10:00
PROVIDERS: ADMIT Internal Medicine; ATTEND Internal Medicine
PROC: 0DB68ZX Excision of Stomach, Via Natural or Artificial Opening Endoscopic, Diagnostic (ICD-10-PCS; 2017-02-09)
PROC: 0DB58ZX Excision of Esophagus, Via Natural or Artificial Opening Endoscopic, Diagnostic (ICD-10-PCS; 2017-02-09)
PROC: 0DB98ZX Excision of Duodenum, Via Natural or Artificial Opening Endoscopic, Diagnostic (ICD-10-PCS; principal; 2017-02-09 07:33)
DX: K92.0 Hematemesis (principal); F11.20 Opioid dependence, uncomplicated; D69.6 Thrombocytopenia, unspecified; F10.230 Alcohol dependence with withdrawal, uncomplicated; F41.9 Anxiety disorder, unspecified; Z91.14 Patient's other noncompliance with medication regimen; I10 Essential (primary) hypertension; F32.9 Major depressive disorder, single episode, unspecified; J44.9 Chronic obstructive pulmonary disease, unspecified; K21.9 Gastro-esophageal reflux disease without esophagitis; K44.9 Diaphragmatic hernia without obstruction or gangrene; F17.210 Nicotine dependence, cigarettes, uncomplicated; G89.29 Other chronic pain; E87.6 Hypokalemia; B19.20 Unspecified viral hepatitis C without hepatic coma; K29.70 Gastritis, unspecified, without bleeding; K29.80 Duodenitis without bleeding; R74.8 Abnormal levels of other serum enzymes
CPT/HCPCS: 74177; 80048; 80053; 80076; 83605; 83690; 83735; 85025; 85610; 85730; 86850; 86900; 86901; 88305; 88312; 96361; 96365; 96375; 96376; C9113; G0378; J2060; J2405; J7030; Q9963; Q9967

== ENCOUNTER 2017-03-12 07:15 | Emergency (ER) | payer SELFPAY ==
[~2017-03-12] VITALS: Ht 193 cm; Wt 98.0 kg
[~2017-03-12 07:15] MED LIST changes: -ASPI325T PO; -BEDSIDE COMMODE1 MI1; +CLON.1 PO; +DIFL100T PO; -DOCU1CAP39 PO; -ENOX40P SQ; +GNP100TA3 PO; -KETO10 PO; -METH10TA PO; +METH5SOL11 PO; -MILKSUS PO; +NYST1000 SWISH-SWAL; +PANT40TA3 PO; -WALKER WHEELS/F1 MIS; -WHEEMIS3; -XANA1TAB2 PO
[2017-03-12 07:19] VITALS: BP 216/99; PULSE 74; RESP 16; TEMP 98.7; O2SAT 96
[2017-03-12] MEDS ORDERED: SODIUM CHLOR 0.9% 1000 ML INJ 1,000 ML IV SCH (07:42)
[2017-03-12] MEDS ORDERED: HYDROmorphone HCL PF 1 MG/ML VIAL IM ONE (07:45)
[2017-03-12] MEDS ORDERED: SODIUM CHLORIDE 0.9% FLUSH 10 ML FLUSH IVF PRN (07:45)
[2017-03-12] MEDS ORDERED: PANTOPRAZOLE SODIUM 40 MG VIAL IVP ONE (07:45)
[2017-03-12] MEDS ORDERED: FAMOTIDINE 20 MG/2 ML VIAL IV PUSH ONE (07:45)
--- NOTE | 2017-03-12 07:51 | PD ---
HPI Chief Complaint: GI Complaint Time Seen by Provider: 07:32 Travel History International Travel<30 days: No Contact w/Intl Traveler<30days: No Traveled to known affect area: No History of Present Illness HPI 52 yo M complains of hematemesis for 3 days, typically in the morning, bright red blood, associated with epigastric burning. Pt reports hx alcoholism, last drink was 5 days ago. + Diarrhea. No blood in stool. Associated symptoms: nausea. Associated complaints: pt missed methadone clinic appointment this morning, states he is due for 130mg. PFSH Past Medical History Arthritis: No Asthma: No Anxiety: Yes Depression: Yes Heart Rhythm Problems: No Cancer: No Cardiovascular Problems: Yes High Cholesterol: No Chemotherapy: No Chest Pain: No Congestive Heart Failure: No COPD: Yes Cerebrovascular Accident: No Diminished Hearing: No Endocrine: No Gastrointestinal Disorders: Yes GERD: Yes Genitourinary: Yes Headaches: No Hepatitis: Yes (HEP C) Hiatal Hernia: No Hypertension: Yes (no prescriptions ) Immune Disorder: No Implanted Vascular Access Dvce: Yes Kidney Stones: No Musculoskeletal: Yes Neurologic: Yes Psychiatric: No Reproductive: No Respiratory: Yes Integumentary: Yes (STAPH INFECTION) Migraines: No Myocardial Infarction: Yes (?) Pancreatitis: Yes Radiation Therapy: No Renal Failure: Yes (R/T OVERDOSE) Seizures: Yes (PAST ALCOHOL/DRUG WITHDRAWL) Sleep Apnea: No Ulcer: No PNEUMOCCOCAL Vaccine (Year): 2 Past Surgical History Joint Replacement: Yes (L ankle (plates and screws)) Other Surgery: No Social History Alcohol Use: Yes (heavily, daily; last 4 days ago) Tobacco Use: Yes (1-2 PPD) Substance Use: Yes (on methadone) Allergies-Medications (Allergen,Severity, Reaction): Coded Allergies: No Known Allergies (Verified , 03/12/17) Reported Meds & Prescriptions Reported Meds & Active Scripts Active Pantoprazole (Pantoprazole Sodium) 40 Mg Tab 40 Mg PO DAILY Protonix (Pantoprazole Sodium) 20 Mg Tab 20 Mg PO DAILY Reported Methadone Liq (Methadone HCl) 1 Mg/Ml Liqd 130 Mg PO DAILY Review of Systems Except as stated in HPI: all other systems reviewed are Neg General / Constitutional: No: Fever Gastrointestinal: Positive: Nausea, Vomiting, Abdominal Pain Physical Exam Narrative GENERAL: 52 yo M, WNWD, NAD SKIN: Warm and dry. HEAD: Atraumatic. Normocephalic. EYES: Pupils equal and round. No scleral icterus. No injection or drainage. ENT: No nasal bleeding or discharge. Mucous membranes pink and moist. NECK: Trachea midline. No JVD. CARDIOVASCULAR: Regular rate and rhythm. RESPIRATORY: No accessory muscle use. Clear to auscultation. Breath sounds equal bilaterally. GASTROINTESTINAL: Abdomen soft. No distension. MUSCULOSKELETAL: Extremities without clubbing, cyanosis, or edema. No obvious deformities. NEUROLOGICAL: Awake and alert. No obvious cranial nerve deficits. Motor grossly within normal limits. Five out of 5 muscle strength in the arms and legs. Normal speech. PSYCHIATRIC: Appropriate mood and affect; insight and judgment normal. Data Data Last Documented VS Vital Signs Date Time Temp Pulse Resp B/P (MAP) Pulse Ox O2 Delivery O2 Flow Rate FiO2 03/12/17 09:08 86 18 179/86 (117) 98 03/12/17 08:03 Room Air 03/12/17 07:19 98.7 Hypertension noted Orders Orders Complete Blood Count With Diff (03/12/17 07:42) Comprehensive Metabolic Panel (03/12/17 07:42) Lipase (03/12/17 07:42) Prothrombin Time / Inr (Pt) (03/12/17 07:42) Act Partial Throm Time (Ptt) (03/12/17 07:42) Alcohol (Ethanol) (03/12/17 07:42) Type And Screen (03/12/17 07:42) Ecg Monitoring (03/12/17 07:42) Iv Access Insert/Monitor (03/12/17 07:42) Oximetry (03/12/17 07:42) Pantoprazole Inj (Protonix Inj) (03/12/17 07:45) Sodium Chlor 0.9% 1000 Ml Inj (Ns 1000 M (03/12/17 07:42) Sodium Chloride 0.9% Flush (Ns Flush) (03/12/17 07:45) Famotidine Inj (Pepcid Inj) (03/12/17 07:45) Hydromorphone Pf Inj (Dilaudid Pf Inj) (03/12/17 07:45) Hydromorphone Pf Inj (Dilaudid Pf Inj) (03/12/17 08:00) Labs Laboratory Tests Test 03/12/17 07:52 White Blood Count 7.2 TH/MM3 Red Blood Count 5.06 MIL/MM3 Hemoglobin 15.6 GM/DL Hematocrit 45.9 % Mean Corpuscular Volume 90.8 FL Mean Corpuscular Hemoglobin 31.0 PG Mean Corpuscular Hemoglobin Concent 34.1 % Red Cell Distribution Width 12.9 % Platelet Count 118 TH/MM3 Mean Platelet Volume 7.5 FL Neutrophils (%) (Auto) 79.3 % Lymphocytes (%) (Auto) 11.3 % Monocytes (%) (Auto) 7.4 % Eosinophils (%) (Auto) 0.2 % Basophils (%) (Auto) 1.8 % Neutrophils # (Auto) 5.8 TH/MM3 Lymphocytes # (Auto) 0.8 TH/MM3 Monocytes # (Auto) 0.5 TH/MM3 Eosinophils # (Auto) 0.0 TH/MM3 Basophils # (Auto) 0.1 TH/MM3 CBC Comment DIFF FINAL Differential Comment Prothrombin Time 12.1 SEC Prothromb Time International Ratio 1.1 RATIO Activated Partial Thromboplast Time 31.8 SEC Blood Urea Nitrogen 10 MG/DL Creatinine 0.61 MG/DL Random Glucose 131 MG/DL Total Protein 9.4 GM/DL Albumin 3.7 GM/DL Calcium Level 9.8 MG/DL Alkaline Phosphatase 114 U/L Aspartate Amino Transf (AST/SGOT) 79 U/L Alanine Aminotransferase (ALT/SGPT) 60 U/L Total Bilirubin 1.0 MG/DL Sodium Level 129 MEQ/L Potassium Level 4.1 MEQ/L Chloride Level 96 MEQ/L Carbon Dioxide Level 24.3 MEQ/L Anion Gap 9 MEQ/L Estimat Glomerular Filtration Rate 138 ML/MIN Lipase 113 U/L Ethyl Alcohol Level LESS THAN 3 MG/DL [facility] Medical Decision Making Medical Screen Exam Complete: Yes Emergency Medical Condition: Yes Differential Diagnosis Constipation, Gastritis, Acute Cholecystitis, Biliary Colic, Pancreatitis, WEBBER , Hepatitis, Bowel Obstruction, Cystitis, Mesenteric Ischemia, AAA, Appendicitis , Renal Stone/Hydronephrosis, GERD, perforated viscous Narrative Course CBC & BMP Diagram 03/12/17 07:52 Total Protein 9.4 H, Albumin 3.7, Calcium Level 9.8, Alkaline Phosphatase 114, Aspartate Amino Transf (AST/SGOT) 79 H, Alanine Aminotransferase (ALT/SGPT) 60, Total Bilirubin 1.0 Lipase normal IVF, protonix, and zantac. Pt reports improvement. The patient is resting comfortably and feels better, is alert and in no distress. The patients results and examination findings were discussed. The repeat examination is unremarkable and benign. The history, exam, diagnostic testing, and current condition do not suggest any significant pathology to warrant further testing, continued ED treatment, admission, or surgical evaluation at this point. The vital signs have been stable. The patient does not have uncontrollable pain, intractable vomiting, or other significant symptoms. The patient's condition is stable and appropriate for discharge. The patient will pursue further outpatient evaluation with a primary care physician or other designated or consulting physician as indicated in the discharge instructions. The patient expressed understanding and was agreeable with this plan. Diagnosis Primary Impression: Hematemesis Qualified Codes: K92.0 - Hematemesis; R11.0 - Nausea Additional Impression: Schneider's esophagus Qualified Codes: K22.719 - Schneider's esophagus with dysplasia, unspecified Referrals: Kassandra Powers MD 2 days Additional Instructions: CONGRATULATIONS FOR YOUR EFFORT TO BE HEALTHIER AND STOP DRINKING. IT WILL CONTINUE TO PAY OFF OVER TIME. STAY STRONG AND KEEP IT UP. YOU'LL GET THERE. PLEASE CONSIDER TO AVOID FATTY FOODS, SMOKING, ALCOHOL, SPICY FOODS, MINTS, CHOCOLATES AND COFFEE WORSENING ESOPHAGUS PAIN WILL ACCOMPANY THEM. Med/Other Pt SpecificInfo: Prescription(s) given Scripts Pantoprazole (Pantoprazole) 40 Mg Tab 40 MG PO DAILY for Manage Heartburn, #30 TAB Prov: William Carlson MD 03/12/17 Pantoprazole (Protonix) 20 Mg Tab 20 MG PO DAILY for Reflux, #30 TAB 0 Refills Prov: William Carlson MD 03/12/17 Disposition: 01 DISCHARGE HOME Condition: Stable William Carlson MD Mar 12, 2017 07:51
[2017-03-12 07:57] LABS: AUTOMATED NEUTROPHIL # 5.8 TH/MM3 (1.8-7.7); BASOPHIL # 0.1 TH/MM3 (0-0.2); BASOPHIL % 1.8 % (0.0-2.0); EOSINOPHIL % 0.2 % (0.0-4.0); HEMATOCRIT 45.9 % (39.0-51.0); HEMO FLAGS DIFF FINAL; LYMPH % 11.3 % (9.0-44.0); LYMPHOCYTE # 0.8 TH/MM3 (1.0-4.8); MEAN CELL VOLUME 90.8 FL (80.0-100.0); MEAN CORPUSCULAR HGB CONC 34.1 % (32.0-36.0); MONO % 7.4 % (0.0-8.0); NEUT % 79.3 % (16.0-70.0); PLATELET COUNT 118 TH/MM3 (150-450); RED BLOOD COUNT 5.06 MIL/MM3 (4.50-5.90); RED CELL DISTRIBUTION WIDTH 12.9 % (11.6-17.2); WHITE BLOOD COUNT 7.2 TH/MM3 (4.0-11.0)
[2017-03-12] MEDS ORDERED: HYDROmorphone HCL PF 1 MG/ML VIAL IV PUSH ONE (08:00)
[2017-03-12 08:03] VITALS: O2SAT 98
[2017-03-12 08:03] LABS: CHLORIDE 96 MEQ/L (98-107); POTASSIUM 4.1 MEQ/L (3.5-5.1); SODIUM (NA) 129 MEQ/L (136-145)
[2017-03-12 08:07] LABS: ANION GAP 9 MEQ/L (5-15); APTT (PATIENT) 31.8 SEC (24.3-30.1); BICARBONATE 24.3 MEQ/L (21.0-32.0); BLOOD UREA NITROGEN 10 MG/DL (7-18); INTERNATIONAL NORMALIZED RATIO 1.1 RATIO; PROTHROMBIN TIME - PATIENT 12.1 SEC (9.8-11.6)
[2017-03-12 08:08] LABS: ALCOHOL LESS THAN 3 MG/DL (0-5)
[2017-03-12 08:10] LABS: ALT (GPT) 60 U/L (12-78); AST (GOT) 79 U/L (15-37); GLOMERULAR FILTRATION RATE 138 ML/MIN (>89)
[2017-03-12 08:13] LABS: ALKALINE PHOSPHATASE 114 U/L (45-117)
[2017-03-12] MEDS ORDERED: PANT20 PO (08:47)
[2017-03-12] MEDS ORDERED: PANT40TA3 PO (09:05)
[2017-03-12 09:08] VITALS: BP 179/86
== END 2017-03-12 09:17 | disposition home or self-care (01) ==
LOC: PHED 07:15
DX: K92.0 Hematemesis (principal); K22.719 Barrett's esophagus with dysplasia, unspecified; B19.20 Unspecified viral hepatitis C without hepatic coma; F17.200 Nicotine dependence, unspecified, uncomplicated; F10.20 Alcohol dependence, uncomplicated; Y90.0 Blood alcohol level of less than 20 mg/100 ml
CPT/HCPCS: 80053; 80307; 83690; 85025; 85610; 85730; 86850; 86900; 86901; 96361; 96374; 96375; 99284; C9113; J1170; J7030

== ENCOUNTER 2017-09-08 09:23 | Emergency (ER) | payer SELFPAY ==
[~2017-09-08] VITALS: Ht 190.5 cm; Wt 95.0 kg
[~2017-09-08 09:23] MED LIST changes: -CLON.1 PO; -DIFL100T PO; -GNP100TA3 PO; -NYST1000 SWISH-SWAL; +PANT20 PO
[2017-09-08 09:51] VITALS: BP 151/86; PULSE 76; RESP 16; TEMP 97.8; O2SAT 97
[2017-09-09] MEDS ORDERED: ERYTOIN10 RIGHT EYE (10:26)
== END 2017-09-08 10:15 | disposition left against medical advice (07) ==
LOC: NED 09:23
DX: Z53.21 Procedure and treatment not carried out due to patient leaving prior to being seen by health care provider (principal)
CPT/HCPCS: 99281

== ENCOUNTER 2017-09-09 09:13 | Emergency (ER) | payer SELFPAY ==
[~2017-09-09] VITALS: Ht 190.5 cm; Wt 90.0 kg
[2017-09-09 09:17] VITALS: BP 158/84; PULSE 88; RESP 16; TEMP 98; O2SAT 95
[2017-09-09] MEDS ORDERED: ERYTOIN10 RIGHT EYE (10:26)
--- NOTE | 2017-09-09 10:27 | PD ---
HPI Chief Complaint: Eye Problems/Injury Time Seen by Provider: 10:01 Travel History International Travel<30 days: No Contact w/Intl Traveler<30days: No Traveled to known affect area: No History of Present Illness HPI This is a 52-year-old male here with foreign object in the right eye 4 days. 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 He reports mild eye discomfort and foreign body sensation. No visual disturbances. Symptoms severity moderate. No aggravating or alleviating factors. PFSH Past Medical History Arthritis: No Asthma: No Anxiety: Yes Depression: Yes Heart Rhythm Problems: No Cancer: No Cardiovascular Problems: Yes High Cholesterol: No Chemotherapy: No Chest Pain: No Congestive Heart Failure: No COPD: Yes Cerebrovascular Accident: No Diminished Hearing: No Endocrine: No Gastrointestinal Disorders: Yes GERD: Yes Genitourinary: Yes Headaches: No Hepatitis: Yes (HEP C) Hiatal Hernia: No Hypertension: Yes (no prescriptions ) Immune Disorder: No Implanted Vascular Access Dvce: Yes Kidney Stones: No Musculoskeletal: Yes Neurologic: Yes Psychiatric: No Reproductive: No Respiratory: Yes Integumentary: Yes (STAPH INFECTION) Migraines: No Myocardial Infarction: Yes (?) Pancreatitis: Yes Radiation Therapy: No Renal Failure: Yes (R/T OVERDOSE) Seizures: Yes (PAST ALCOHOL/DRUG WITHDRAWL) Sleep Apnea: No Ulcer: No Influenza Vaccination: No PNEUMOCCOCAL Vaccine (Year): 2 Past Surgical History Joint Replacement: Yes (L ankle (plates and screws)) Other Surgery: No Social History Alcohol Use: Yes (daily; last 4 days ago) Tobacco Use: Yes (1-2 PPD) Substance Use: Yes (on methadone) Allergies-Medications (Allergen,Severity, Reaction): Coded Allergies: No Known Allergies (Verified Adverse Reaction, Unknown, 09/09/17) Reported Meds & Prescriptions Reported Meds & Active Scripts Active Erythromycin Opth Oint 5 Mg/Gm Oint 1 Applic RIGHT EYE QID Reported Methadone Liq (Methadone HCl) 1 Mg/Ml Liqd 130 Mg PO DAILY Review of Systems Except as stated in HPI: all other systems reviewed are Neg General / Constitutional: No: Fever Eyes: Positive: Redness, Foreign Body Sensation HENT: No: Headaches Cardiovascular: No: Chest Pain or Discomfort Respiratory: No: Shortness of Breath Gastrointestinal: No: Abdominal Pain Genitourinary: No: Dysuria Physical Exam Narrative GENERAL: Alert and well-appearing 52-year-old male SKIN: Warm and dry. HEAD: Normocephalic. EYES: Right eye mildly injected. Pupils equal, round, reactive to light. No hyphema. EOMs intact. Corneas are clear. 1 mm white circular foreign body located at 5:00 over the sclera. Visual acuity: L: 20/30, R: 20/50, B:20/30. NECK: Supple MUSCULOSKELETAL: No cyanosis, or edema. Data Data Last Documented VS Vital Signs Date Time Temp Pulse Resp B/P (MAP) Pulse Ox O2 Delivery O2 Flow Rate FiO2 09/09/17 09:17 98.0 88 16 158/84 (108) 95 Orders Orders Erythromycin 0.5% Opth Oint (Ilotycin 0. (09/09/17 10:30) Mandatory Outpatient Referral (09/09/17 10:28) Ed Discharge Order (09/09/17 10:29) [facility] Medical Decision Making Medical Screen Exam Complete: Yes Emergency Medical Condition: Yes Differential Diagnosis Corneal foreign body, corneal ulcer, corneal abrasion Narrative Course This is a 52-year-old male here with a superficial foreign body embedded in the cornea of the right eye. The object was easily removed using a cotton Q-tip. Small corneal abrasion at that location where the foreign body was embedded. Visual acuity is preserved. Patient we put on erythromycin ophthalmic ointment with a mandatory referral to follow up with ophthalmology. Return precautions were discussed. Patient verbalizes understanding and agrees to plan Procedures Procedure Narrative Corneal foreign body removal: Proparacaine eye drops instilled in the right eye. Using a cotton Q-tip the foreign body was easily removed. Patient tolerated procedure well. Diagnosis Primary Impression: Corneal foreign body Qualified Codes: T15.01XA - Foreign body in cornea, right eye, initial encounter Referrals: Gisela Menendez MDcharge master specialist Additional Instructions: Antibiotic ointment to the right eye as directed. Follow-up with the office support specialist for recheck. He was given a mandatory referral for ophthalmology follow-up. Scripts Erythromycin Opth Oint (Erythromycin Opth Oint) 5 Mg/Gm Oint 1 APPLIC RIGHT EYE QID for Infection, #1 TUBE 0 Refills Prov: Anabella Olea 09/09/17 Disposition: 01 DISCHARGE HOME Condition: Stable Anabella Olea Sep 09, 2017 10:26
[2017-09-09] MEDS ORDERED: ERYTHROMYCIN 0.5% OPTH OINT 3.5 GM TUBO RIGHT EYE ONE (10:30)
[2017-09-09 10:42] VITALS: BP 138/78
== END 2017-09-09 10:43 | disposition home or self-care (01) ==
LOC: PHED 09:13 → PHEFT 10:43
DX: T15.01XA Foreign body in cornea, right eye, initial encounter (principal); F41.9 Anxiety disorder, unspecified; F32.9 Major depressive disorder, single episode, unspecified; J44.9 Chronic obstructive pulmonary disease, unspecified; K21.9 Gastro-esophageal reflux disease without esophagitis; I10 Essential (primary) hypertension; I25.2 Old myocardial infarction; Z87.19 Personal history of other diseases of the digestive system; Z86.19 Personal history of other infectious and parasitic diseases
CPT/HCPCS: 65220

== ENCOUNTER 2018-01-21 14:09 | Inpatient (IN) ==
[2018-01-21] MEDS ORDERED: Morphine Inj 4 MG/ML Vial IV.PUSH ONE (14:25)
--- NOTE | 2018-01-21 14:31 | ED ---
HPI General Chief complaint: Fall Stated complaint: FALL Time Seen by Provider: 01/21/18 14:23 History of Present Illness HPI narrative: This is a 52-year-old male presents via EMS for evaluation after fall. He reports that prior to arrival he was standing at the top of an 8 foot ladder attempting to get on top of a roof when he fell backwards, falling off a ladder and hitting some trees before hitting the ground. There was no loss of consciousness. He has been complaining primarily of left flank pain as well as some shortness of breath. Pain is sharp, constant, aggravated by movement with no relieving factors. Denies any nausea, vomiting, dizziness or lightheadedness. No apparent headache currently. No numbness or tingling or weakness in extremities. He is not on any blood thinning medications. He does endorse drinking some alcohol today. No other complaints. Related Data Allergies Allergy/AdvReac Type Severity Reaction Status Date / Time No Known Allergies Allergy Verified 01/21/18 14:35 Review of Systems Except as stated in HPI: all other systems reviewed are negative [facility] Medical History Medical History Hepatitis C (Acute) Surgical History Surgical History No history of previous surgery (Acute) Social History Social History Substance History: No History of Abuse Second Hand Smoke Exposure: Yes Smoking Status: Current every day smoker Tobacco Type: Cigarettes How Often Do You Have a Drink Containing Alcohol: 4 or more times a week Recent Travel in [facility] within the Last 8 Weeks: No Recent Out of Country Travel within the Last 8 Weeks: No Immunization History Tetanus Immunization: >5 Years Hx Influenza Vaccine This Season: No Exam Narrative Exam Narrative: GENERAL: This is a well-developed well-nourished male who appears to be in pain. He is noted to be tachycardic. Cervical collar in place laying on backboard. The patient was logrolled off the backboard using spinal precautions. SKIN: Warm and dry. Some left flank ecchymosis is noted. HEAD: Atraumatic. Normocephalic. EYES: Pupils equal and round. No scleral icterus. No injection or drainage. ENT: No nasal bleeding or discharge. Mucous membranes pink and moist. NECK: Trachea midline. No JVD. CARDIOVASCULAR: Regular rate and rhythm. No murmur appreciated. RESPIRATORY: No accessory muscle use. Clear to auscultation. Breath sounds equal bilaterally. GASTROINTESTINAL: Abdomen soft, non-tender, nondistended. Hepatic and splenic margins not palpable. MUSCULOSKELETAL: No obvious deformities. Generalized tenderness to palpation to the thoracic and lumbar spine. No apparent discomfort with movement spontaneously of the upper and lower extremities. Cervical collar maintained. NEUROLOGICAL: Awake and alert. No obvious cranial nerve deficits. Motor grossly within normal limits. Normal speech. Course Initial Documented Vital Signs Temperature 98.9 F 01/21/18 14:12 Pulse Rate 116 H 01/21/18 14:12 Respiratory Rate 30 H 01/21/18 14:12 Blood Pressure 181/97 H 01/21/18 14:12 Pulse Oximetry 97 01/21/18 14:12 Last Documented Vital Signs Temperature 98.9 F 01/21/18 14:17 Pulse Rate 86 01/21/18 17:43 Respiratory Rate 18 01/21/18 17:43 Blood Pressure 136/81 01/21/18 17:43 Pulse Oximetry 97 01/21/18 17:43 Medical Decision Making MDM Narrative Medical decision making narrative: Patient was placed on ECG monitoring pulse oximetry. Lab work including i-STAT been ordered. The patient was given morphine and Zofran. CT imaging of the brain, cervical, thoracic, lumbar spine , thorax and abdomen and pelvis have been ordered. X-rays of the chest and pelvis have been ordered. Chest x-ray reveals multiple left-sided rib fractures. CT the brain reveals a subdural hematoma measuring [address] abdomen pelvis reveals multiple left-sided rib fractures with a small left pneumothorax and hemopneumothorax. I discussed with the on-call trauma surgeon Dr. Barnes who will admit the patient. Neurosurgery has also been paged. Discussed with Dr. Yusuf who will consult. Differential Diagnosis Differential Diagnosis: Rib fracture, pneumothorax, hemothorax, splenic laceration, retroperitoneal hematoma, spinal fracture Lab Data Result diagrams: 01/21/18 14:30 01/21/18 14:30 Lab Results 01/21/18 01/21/18 01/21/18 Range/Units 14:30 14:30 14:30 WBC 6.9 (4.0-11.0) th/mm3 RBC 4.36 L (4.50-5.90) mil/mm3 Hgb 14.6 (13.0-17.0) gm/dL POC Hgb (Calc) 14.3 (13.0-17.0) g/dL Hct 42.0 (39.0-51.0) % POC Hct 42.0 (39-51.0) % MCV 96.3 (80.0-100.0) fL MCH 33.5 (27.0-34.0) pg MCHC 34.8 (32.0-36.0) % RDW 13.4 (11.6-17.2) % Plt Count 114 L (150-450) th/mm3 MPV 7.0 (7.0-11.0) fL Neut % (Auto) 63.5 (16.0-70.0) % Lymph % (Auto) 23.3 (9.0-44.0) % Butler % (Auto) 10.1 H (0.0-8.0) % Eos % (Auto) 2.5 (0.0-4.0) % Baso % (Auto) 0.6 (0.0-2.0) % Neut # (Auto) 4.4 (1.8-7.7) th/mm3 Lymph # (Auto) 1.6 (1.0-4.8) th/mm3 Butler # (Auto) 0.7 (0.0-0.9) th/mm3 Eos # (Auto) 0.2 (0.0-0.4) th/mm3 Baso # (Auto) 0.0 (0.0-0.2) th/mm3 WBC Differential . Differential Comment Auto diff final PT 11.6 (9.8-11.6) sec INR 1.1 Ratio APTT 26.2 (24.3-30.1) sec POC Sodium 135 L (137-144) mmol/L Sodium 135 L (136-145) meq/L POC Potassium 3.5 L (3.6-5.0) mmol/L Potassium 3.5 (3.5-5.1) meq/L POC Chloride 93 L (102-111) mmol/L Chloride 99 (98-107) meq/L Carbon Dioxide 28.4 (21.0-32.0) meq/L Anion Gap 8 (5-15) meq/L POC BUN 10 (5-21) mg/dL BUN 10 (7-18) mg/dL Creatinine 0.75 (0.60-1.30) mg/dL POC Creatinine 0.7 (0.6-1.3) mg/dL Estimated GFR Greater than 89 (>89) mL/min POC Glucose 104 (68-110) mg/dL Random Glucose 103 (74-106) mg/dL Calcium 8.2 L (8.5-10.1) mg/dL Serum Alcohol 84 H (0-5) mg/dL Blood Type Antibody Screen 01/21/18 Range/Units 14:30 WBC (4.0-11.0) th/mm3 RBC (4.50-5.90) mil/mm3 Hgb (13.0-17.0) gm/dL POC Hgb (Calc) (13.0-17.0) g/dL Hct (39.0-51.0) % POC Hct (39-51.0) % MCV (80.0-100.0) fL MCH (27.0-34.0) pg MCHC (32.0-36.0) % RDW (11.6-17.2) % Plt Count (150-450) th/mm3 MPV (7.0-11.0) fL Neut % (Auto) (16.0-70.0) % Lymph % (Auto) (9.0-44.0) % Butler % (Auto) (0.0-8.0) % Eos % (Auto) (0.0-4.0) % Baso % (Auto) (0.0-2.0) % Neut # (Auto) (1.8-7.7) th/mm3 Lymph # (Auto) (1.0-4.8) th/mm3 Butler # (Auto) (0.0-0.9) th/mm3 Eos # (Auto) (0.0-0.4) th/mm3 Baso # (Auto) (0.0-0.2) th/mm3 WBC Differential Differential Comment PT (9.8-11.6) sec INR Ratio APTT (24.3-30.1) sec POC Sodium (137-144) mmol/L Sodium (136-145) meq/L POC Potassium (3.6-5.0) mmol/L Potassium (3.5-5.1) meq/L POC Chloride (102-111) mmol/L Chloride (98-107) meq/L Carbon Dioxide (21.0-32.0) meq/L Anion Gap (5-15) meq/L POC BUN (5-21) mg/dL BUN (7-18) mg/dL Creatinine (0.60-1.30) mg/dL POC Creatinine (0.6-1.3) mg/dL Estimated GFR (>89) mL/min POC Glucose (68-110) mg/dL Random Glucose (74-106) mg/dL Calcium (8.5-10.1) mg/dL Serum Alcohol (0-5) mg/dL Blood Type O Positive Antibody Screen Negative Imaging Data Radiologist's impression: Abdomen/Pelvis CT 01/21/18 14:23 CONCLUSION: 1. Multiple lower left-sided rib fractures with tiny left pneumothorax and small left hemopneumothorax. There is some air in the left lower chest wall posteriorly. 2. No acute traumatic injury identified in the upper abdomen viscera. No free fluid or free air within the abdomen. 3. Moderate degenerative change in the lower lumbar spine. Cervical Spine CT 01/21/18 14:23 CONCLUSION: No cervical spine fracture or spondylolisthesis. No canal stenosis. Tiny left pneumothorax and left pleural effusion. Chest CT 01/21/18 14:23 CONCLUSION: 1. Multiple lower left rib fractures with tiny left pneumothorax and small left hemopneumothorax. 2. Dependent atelectasis in the lungs. 3. Mild fatty liver. Chest X-Ray 01/21/18 14:23 CONCLUSION: Multiple rib fractures. No pneumothorax. Left upper lobe density likely contusion Head CT 01/21/18 14:23 CONCLUSION: 1. Left-sided subdural hematoma predominantly in the parietal region measuring around 8 mm in thickness without significant mass effect and no midline shift. Ventricular size is within normal limits. No associated fracture identified. . Pelvis X-Ray 01/21/18 14:23 CONCLUSION: Negative examination. Discharge Plan Discharge Disposition Patient Disposition: 30 Still Patient Discharge Condition Condition: Stable Discharge Details Diagnosis: Acute subdural hematoma, Fracture, ribs, Pneumothorax, Hemopneumothorax on left Physicians Team ED Provider: Soledad Ferrer ED Midlevel Provider: Cayden Bustos Primary Care Provider: Primary Care Daniai,Daylin Attending Provider: Angel Barnes ED Status: Admitted Patient
[2018-01-21 14:43] LABS: Baso % (Auto) 0.6 % (0.0-2.0); Eos # (Auto) 0.2 th/mm3 (0.0-0.4); Eos % (Auto) 2.5 % (0.0-4.0); Hemoglobin 14.6 gm/dL (13.0-17.0); Lymph # (Auto) 1.6 th/mm3 (1.0-4.8); Lymph % (Auto) 23.3 % (9.0-44.0); Mean Corpuscular HGB Conc 34.8 % (32.0-36.0); Mean Corpuscular Hemoglobin 33.5 pg (27.0-34.0); Mean Corpuscular Volume 96.3 fL (80.0-100.0); Mono # (Auto) 0.7 th/mm3 (0.0-0.9); Mono % (Auto) 10.1 % (0.0-8.0); Neut # (Auto) 4.4 th/mm3 (1.8-7.7); Neut % (Auto) 63.5 % (16.0-70.0); Platelet Count 114 th/mm3 (150-450); Red Blood Count 4.36 mil/mm3 (4.50-5.90); Red Cell Distribution Width 13.4 % (11.6-17.2); White Blood Count 6.9 th/mm3 (4.0-11.0)
[2018-01-21 14:54] LABS: Activated Partial Thrombo Time 26.2 sec (24.3-30.1); INR 1.1 Ratio; Prothrombin Time 11.6 sec (9.8-11.6)
[2018-01-21 15:01] LABS: Anion Gap 8 meq/L (5-15); Blood Urea Nitrogen 10 mg/dL (7-18); Calcium 8.2 mg/dL (8.5-10.1); Carbon Dioxide 28.4 meq/L (21.0-32.0); Chloride 99 meq/L (98-107); Glomerular Filtration Rate Greater Than 89 mL/min (>89); Glucose,Random 103 mg/dL (74-106); Potassium 3.5 meq/L (3.5-5.1); Sodium 135 meq/L (136-145)
--- NOTE | 2018-01-21 15:07 | XR ---
EXAM DATE: 01/21/2018 2:57 PM EDT AGE/SEX: 52 years / Male INDICATIONS: Patient states he fell off a ladder, pelvic pain. CLINICAL DATA: This is the patient's initial encounter. Patient reports that signs and symptoms have been present for 1 day and indicates a pain score of 10/10. MEDICAL/SURGICAL HISTORY: None. None. COMPARISON: [facility] [place], 07/[place]. . FINDINGS: Examination of the pelvis demonstrates no evidence of fracture or dislocation. Bony mineralization i s normal. There is no widening of the sacroiliac joints. No foreign body is identified. CONCLUSION: Negative examination. Electronically signed by: Albert Hickman MD 01/21/2018 3:06 PM EDT
[2018-01-21 15:17] LABS: Alcohol 84 mg/dL (0-5)
--- NOTE | 2018-01-21 15:51 | XR ---
EXAM DATE: 01/21/2018 2:55 PM EDT AGE/SEX: 52 years / Male INDICATIONS: Patient states he fell off a ladder, chest pains. CLINICAL DATA: This is the patient's initial encounter. Patient reports that signs and symptoms have been present for 1 day and indicates a pain score of 10/10. MEDICAL/SURGICAL HISTORY: None. None. COMPARISON: [facility], CHEST SINGLE AP, 07/23/2016. . FINDINGS: A single AP view of the chest demonstrates left upper lobe contusion.. The cardiomediastinal contour s are unremarkable. Multiple left-sided rib fractures. CONCLUSION: Multiple rib fractures. No pneumothorax. Left upper lobe density likely contusion Electronically signed by: Benny Jolly MD 01/21/2018 3:50 PM EDT
--- NOTE | 2018-01-21 16:26 | CT ---
EXAM DATE: 01/21/2018 4:19 PM EDT AGE/SEX: 52 years / Male INDICATIONS: Fall ten feet today CLINICAL DATA: This is the patient's initial encounter. Patient reports that signs and symptoms have been present for 1 day and indicates a pain score of 7/10. MEDICAL/SURGICAL HISTORY: Hepatitis C. None. RADIATION DOSE: 64.63 CTDI (mGy) [place] [facility] [place]. . TECHNIQUE: CT of the head without contrast. Using automated exposure control and adjustment of the mA and/or kV according to patient size, radiation dose was kept as low as reasonably achievable to ob tain optimal diagnostic quality images. DICOM format image data is available electronically for revi ew and comparison. FINDINGS: There is a left-sided posterior subdural hematoma measuring at least 8 mm in thickness. There is some localized sulcal effacement but no significant mass effect or midline shift otherwise. No associated skull fracture identified. Paranasal sinuses are clear. No intraparenchymal brain hemorrhage identified. CONCLUSION: 1. Left-sided subdural hematoma predominantly in the parietal region measuring around 8 mm in thickn ess without significant mass effect and no midline shift. Ventricular size is within normal limits. N o associated fracture identified. . Electronically signed by: Rohit Manning MD 01/21/2018 4:24 PM EDT
--- NOTE | 2018-01-21 16:32 | CT ---
EXAM DATE: 01/21/2018 4:17 PM EDT AGE/SEX: 52 years / Male INDICATIONS: Fall ten feet today CLINICAL DATA: This is the patient's initial encounter. Patient reports that signs and symptoms have been present for 1 day and indicates a pain score of 7/10. MEDICAL/SURGICAL HISTORY: Hepatitis C. None. ORAL CONTRAST: No oral contrast ingested. RADIATION DOSE: 10.05 CTDI (mGy) ; Combined studies COMPARISON: [facility], CT ABDOMEN & PELVIS W CONTRAST, 02/07/2017. . TECHNIQUE: Multiple contiguous axial images were obtained through the abdomen and pelvis following b olus infusion of 76 ml Omnipaque 350 (iohexol) nonionic water-soluble contrast as a cumulative dose for multiple exams. No oral contrast ingested. Using automated exposure control and adjustment of t he mA and/or kV according to patient size, radiation dose was kept as low as reasonably achievable to obtain optimal diagnostic quality images. DICOM format image data is available electronically for r eview and comparison. FINDINGS: There are several nondisplaced lower left anterior rib fractures with a tiny left-sided pneumothorax and small left hemopneumothorax. Left-sided posterior rib fractures also present with slightly more d isplacement and subcutaneous air in the soft tissues. Mild fatty liver. Spleen, adrenals, kidneys and pancreas unremarkable. No calcified gallstones or jannette iary ductal dilatation. There is no free fluid. No bowel obstruction. No adenopathy. Appendix is normal. CONCLUSION: 1. Multiple lower left-sided rib fractures with tiny left pneumothorax and small left hemopneumothor ax. There is some air in the left lower chest wall posteriorly. 2. No acute traumatic injury identified in the upper abdomen viscera. No free fluid or free air with in the abdomen. 3. Moderate degenerative change in the lower lumbar spine. Electronically signed by: Rohit Manning MD 01/21/2018 4:31 PM EDT
[2018-01-21] MEDS ORDERED: Acetaminophen 325 MG Tablet PO PRN (16:50)
--- NOTE | 2018-01-21 16:55 | CT ---
EXAM DATE: 01/21/2018 4:24 PM EDT AGE/SEX: 52 years / Male INDICATIONS: Fall ten feet today CLINICAL DATA: This is the patient's initial encounter. Patient reports that signs and symptoms have been present for 1 day and indicates a pain score of 7/10. MEDICAL/SURGICAL HISTORY: Hepatitis: This is the usual was reviewed with the medical disease No ne. RADIATION DOSE: 23.80 CTDI (mGy) COMPARISON: No prior exams available for comparison. TECHNIQUE: Contiguous axial images were obtained using helical multirow detector technique. The vol umetric data was post-processed with multiplanar reconstruction in oblique axial, sagittal, and coron al planes. Using automated exposure control and adjustment of the mA and/or kV according to patient s ize, radiation dose was kept as low as reasonably achievable to obtain optimal diagnostic quality yesi ges. DICOM format image data is available electronically for review and comparison. FINDINGS: There is no cervical spine fracture. No spondylolisthesis or prevertebral soft tissue swelling. There is no significant bony canal stenosis. No foraminal stenosis. Mild to moderate degenerative change i n lower cervical spine. Lung apices reveal a tiny left pneumothorax and small left effusion. Also apical emphysema. CONCLUSION: No cervical spine fracture or spondylolisthesis. No canal stenosis. Tiny left pneumothora x and left pleural effusion. Electronically signed by: Rohit Manning MD 01/21/2018 4:54 PM EDT
--- NOTE | 2018-01-21 17:02 | P.HPCC ---
History of Present Illness Primary Care Physician: No Primary Care Physician History of Present Illness: 52-year-old male brought in by EMS as a level two trauma alert for fall from height. He reports that prior to arrival he was standing at the top of an 8 foot ladder attempting to get on top of a roof when he fell backwards, falling off a ladder and hitting some trees before hitting the ground. There was no loss of consciousness. He has been complaining primarily of left flank pain as well as some shortness of breath. Pain is sharp, constant, aggravated by movement with no relieving factors. Denies any nausea, vomiting, dizziness or lightheadedness. No apparent headache currently. No numbness or tingling or weakness in extremities. He is not on any blood thinning medications. He does endorse drinking some alcohol today. No other complaints. 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 Inpatient Certification: I certify that the inpatient services were ordered in accordance with Medicare regulations governing the order. This includes certification that hospital inpatient services are reasonable and necessary and in the case of services not specified as inpatient-only under 42 CFR 419.22(n), that they are appropriately provided as inpatient services in accordance to with the 2-midnight benchmark under 43 CFR 412.3(e) Estimated Total Length of Stay (Days): 7 Plans for Post Hospital Care: Home Review of Systems All other systems reviewed negative except as stated in HPI PMFSH - History History Provided By: Patient - Medical History Medical History: Medical History (Last Updated 01/21/18 @ 14:16 by José Luis Gracia) Hepatitis C - Surgical History Surgical History: Surgical History (Last Updated 01/21/18 @ 14:16 by José Luis Gracia) No history of previous surgery - Tobacco History Second Hand Smoke Exposure: Yes Tobacco Use In Past 30 Days: Yes Smoking Status: Current every day smoker Tobacco Type: Cigarettes - Alcohol History How Often Do You Have a Drink Containing Alcohol: 4 or more times a week - Substance Use History Substance History: No History of Abuse - Travel History Recent Travel in the [place] Within the Last 8 Weeks: No Recent Travel Out of the Country Within the Last 8 Weeks: No - Immunization History Tetanus Immunization: >5 Years Hx Influenza Vaccine This Season: No Medications and Allergies Active Medications: Active Medications Acetaminophen (Tylenol) 650 mg PO Q6H PRN PRN Reason: TEMPERATURE > 102 F Al Hydroxide/Mg Hydroxide (Milk Of Dayron Schaefer) 30 ml PO Q6H PRN PRN Reason: CONSTIPATION Chlorhexidine Gluconate (Chlorhexidine 2% Cloth) 3 pack TOPICAL DAILY@0400 NANI Stop: 01/27/18 03:59 Chlorhexidine Gluconate (Chlorhexidine 2% Cloth) 3 pack TOPICAL DAILY@0400 PRN PRN Reason: Extra cloth needed Stop: 01/27/18 03:59 Diazepam (Valium) 2 mg PO Q8H NANI Docusate Sodium (Colace) 100 mg PO BID NANI Ondansetron HCl (Zofran Inj) 4 mg IV.PUSH Q4H PRN PRN Reason: NAUSEA OR VOMITING Oxycodone HCl (Roxicodone) 5 mg PO Q4H PRN PRN Reason: Pain 1-5 Sodium Chloride (Ns Flush) 2 ml IV.FLUSH PRN PRN PRN Reason: FLUSH AFTER USING IV ACCESS Last Admin: 01/21/18 14:37 Dose: 2 ml Sodium Chloride (Ns Flush) 2 ml IV.FLUSH UNSCH PRN PRN Reason: FLUSH AFTER USING IV ACCESS Allergies Allergy/AdvReac Type Severity Reaction Status Date / Time No Known Allergies Allergy Verified 01/21/18 14:35 Results - Labs CBC & Chem 7: 01/21/18 14:30 01/21/18 14:30 Labs: Short CBC 01/21/18 Range/Units 14:30 WBC 6.9 (4.0-11.0) th/mm3 Hgb 14.6 (13.0-17.0) gm/dL Hct 42.0 (39.0-51.0) % Plt Count 114 L (150-450) th/mm3 BMP 01/21/18 14:30 Sodium 135 L Potassium 3.5 Chloride 99 Carbon Dioxide 28.4 BUN 10 Creatinine 0.75 Calcium 8.2 L - Imaging Impressions Abdomen/Pelvis CT 01/21/18 14:23 CONCLUSION: 1. Multiple lower left-sided rib fractures with tiny left pneumothorax and small left hemopneumothorax. There is some air in the left lower chest wall posteriorly. 2. No acute traumatic injury identified in the upper abdomen viscera. No free fluid or free air within the abdomen. 3. Moderate degenerative change in the lower lumbar spine. Cervical Spine CT 01/21/18 14:23 CONCLUSION: No cervical spine fracture or spondylolisthesis. No canal stenosis. Tiny left pneumothorax and left pleural effusion. Chest X-Ray 01/21/18 14:23 CONCLUSION: Multiple rib fractures. No pneumothorax. Left upper lobe density likely contusion Head CT 01/21/18 14:23 CONCLUSION: 1. Left-sided subdural hematoma predominantly in the parietal region measuring around 8 mm in thickness without significant mass effect and no midline shift. Ventricular size is within normal limits. No associated fracture identified. . Pelvis X-Ray 01/21/18 14:23 CONCLUSION: Negative examination. Exam Vital signs: Vital Signs 01/21/18 14:12 01/21/18 14:17 Temperature 98.9 F 98.9 F Pulse Rate 116 H 116 H Respiratory Rate 30 H 30 H Blood Pressure 181/97 H 181/97 H Pulse Oximetry 97 90 L Intake & Output 01/20/18 01/21/18 01/21/18 18:59 06:59 18:59 Weight 95.254 kg - Constitutional moderate distress - Routine HEENT Exam Head: Present: normocephalic, atraumatic Eye: Present: EOMI, PERRL ENT: Present: mucous membranes dry - Routine Neck Exam Present: trachea midline. Absent: tenderness, swelling, tracheal deviation - Routine Chest/Breast/Axilla Exam Chest wall: Present: tenderness - Routine Respiratory Exam Present: CTA bilaterally, diminished air movement - Routine Cardiovascular Exam Present: RRR - Routine Abdominal Exam Present: soft. Absent: tenderness, distended - Routine Extremities Exam Absent: cyanosis, clubbing, edema - Routine Skin Exam Present: dry, warm - Routine Neurological Exam Present: alert, oriented X3, CN II-XII intact Caprini VTE Risk Assessment Caprini VTE Risk Assessment: Moderate/High Risk (score >= 2) VTE Pharmacological Exception Reason: Hemorrhage Caprini Risk Assessment Model: Point Value = 1 Point Value = 2 Point Value = 3 Point Value = 5 Age 41-60 Minor surgery BMI > 25 kg/m2 Swollen legs Varicose veins or History of unexplained or recurrent spontaneous Oral contraceptives or hormone replacement Sepsis (< 1 month) Serious lung disease, including pneumonia (< 1 month) Abnormal pulmonary function Acute myocardial infarction Congestive heart failure (< 1 month) History of inflammatory bowel disease Medical patient at bed rest Age 61-74 Arthroscopic surgery Major open surgery (> 45 min) Laparoscopic surgery (> 45 min) Malignancy Confined to bed (> 72 hours) Immobilizing plaster cast Central venous access Age >= 75 History of VTE Family history of VTE Factor V Leiden Prothrombin [id number] Lupus anticoagulant Anticardiolipin antibodies Elevated serum homocysteine Heparin-induced thrombocytopenia Other congenital or acquired thrombophilia Stroke (< 1 month) Elective arthroplasty Hip, pelvis, or leg fracture Acute spinal cord injury (< 1 month) Prophylaxis Regimen: Total Risk Factor Score Risk Level Prophylaxis Regimen 0-1 Low Early ambulation 2 Moderate Order ONE of the following: *Sequential Compression Device (SCD) *Heparin 5000 units SQ BID 3-4 Higher Order ONE of the following medications: *Heparin 5000 units SQ TID *Enoxaparin/Lovenox 40 mg SQ daily (WT < 150 kg, CrCl > 30 mL/min) *Enoxaparin/Lovenox 30 mg SQ daily (WT < 150 kg, CrCl > 10-29 mL/min) *Enoxaparin/Lovenox 30 mg SQ BID (WT < 150 kg, CrCl > 30 mL/min) AND/OR *Sequential Compression Device (SCD) 5 or more Highest Order ONE of the following medications: *Heparin 5000 units SQ TID (Preferred with Epidurals) *Enoxaparin/Lovenox 40 mg SQ daily (WT < 150 kg, CrCl > 30 mL/min) *Enoxaparin/Lovenox 30 mg SQ daily (WT < 150 kg, CrCl > 10-29 mL/min) *Enoxaparin/Lovenox 30 mg SQ BID (WT < 150 kg, CrCl > 30 mL/min) AND *Sequential Compression Device (SCD) Assessment and Plan - Assessment and Plan Plan: Patient was admitted to the trauma ICU for continuous hemodynamic monitoring and serial neurologic exams Neurosurgery will be consulted for subdural hematoma and a repeat head CT will be ordered for the morning Morphine SIZING END BANDER for pain control due to the fact that he is on methadone and in severe pain Aggressive pulmonary toilet and serial chest x-rays to monitor the progress of his pneumothorax PT to evaluate and treat
[2018-01-21] MEDS ORDERED: Naloxone Inj 0.4 MG/ML Vial IV.PUSH PRN (17:14)
--- NOTE | 2018-01-21 17:33 | CT ---
EXAM DATE: 01/21/2018 5:15 PM EDT AGE/SEX: 52 years / Male INDICATIONS: Fall ten feet today CLINICAL DATA: This is the patient's initial encounter. Patient reports that signs and symptoms have been present for 1 day and indicates a pain score of 7/10. MEDICAL/SURGICAL HISTORY: Hepatitis C. None. RADIATION DOSE: 10.05 CTDI (mGy) ; Combined studies COMPARISON: No prior exams available for comparison. TECHNIQUE: Multiple contiguous axial images were obtained through the chest during bolus infusion of 75 ml Omnipaque 350 (iohexol) nonionic water-soluble contrast as a cumulative dose for multiple exa ms. Images were obtained in suspended respiration using multiple row detector helical technique. U sing automated exposure control and adjustment of the mA and/or kV according to patient size, radiati on dose was kept as low as reasonably achievable to obtain optimal diagnostic quality images. DICOM format image data is available electronically for review and comparison. FINDINGS: There are multiple lower left-sided anterior and posterior rib fractures. There is a tiny left-sided pneumothorax and a small left hemopneumothorax. Dependent basal atelectasis in both lungs. No mediastinal hematoma. No thoracic spine fracture identified. No adenopathy. CONCLUSION: 1. Multiple lower left rib fractures with tiny left pneumothorax and small left hemopneumothorax. 2. Dependent atelectasis in the lungs. 3. Mild fatty liver. Electronically signed by: Rohit Manning MD 01/21/2018 5:31 PM EDT
--- NOTE | 2018-01-21 18:28 | P.CONNS ---
History of Present Illness Service: Neurosurgery Consult date: 01/21/18 Requesting Physician: Angel Barnes (Trauma surgery) Reason for Consult: Traumatic brain injury Primary Care Provider: No Primary Care Physician Family Provider: No Primary Care Physician History of Present Illness: 52-year-old gentleman brought in to [facility] as a trauma alert after a fall from a ladder about 8 feet in height without loss of consciousness. His main complaint is extreme left-sided chest wall pain with any movement and some shortness of breath. Denies any headaches at this point or any numbness or paresthesias in the upper or lower extremities. He has been evaluated by trauma surgery and a workup included CT scan of the head which reveals about an 8 mm left parietal convexity subdural hemorrhage without any significant midline shift. CT the cervical spine does not reveal any fracture. He does have multiple left-sided rib fractures along with a pneumothorax. He has been admitted to the intensive care unit under the trauma surgery service and neurosurgery consultation requested. He also has a history of opiate abuse and dependency and is a chronic alcoholic. Review of Systems Constitutional: Denies anorexia, Denies body ache(s), Denies chills, Denies daytime sleepiness, Denies excessive sweating, Denies fatigue, Denies fever(s), Denies headache(s), Denies increased appetite, Denies lack of energy, Denies malaise, Denies night sweats, Denies weakness, Denies weight gain, Denies weight loss, Denies other Eyes: Denies blind spots, Denies blurry vision, Denies bulging eyes, Denies change in vision, Denies double vision, Denies discharge, Denies dry eyes, Denies floaters, Denies irritation, Denies itchy eyes, Denies loss of vision, Denies pain, Denies requires corrective lenses, Denies sensitivity to light, Denies other Ears, Nose, Mouth, and Throat: Denies abnormal hearing, Denies bleeding gums, Denies bad breath, Denies change in voice, Denies dental pain, Denies difficulty swallowing, Denies dizziness, Denies dry mouth, Denies ear discharge , Denies ear pain, Denies facial pain, Denies headache(s), Denies hearing loss, Denies hoarseness, Denies lip swelling, Denies nosebleed, Denies mouth lesions, Denies mouth pain, Denies nasal congestion, Denies nasal discharge, Denies nasal obstruction, Denies nasal trauma, Denies neck lump, Denies neck pain, Denies nose pain, Denies pain with swallowing, Denies poor balance, Denies post nasal drip, Denies ringing in the ears, Denies sinus pain, Denies sinus pressure , Denies sore throat, Denies throat swelling, Denies tongue swelling, Denies other Cardiovascular: Reports chest pain, Reports chest pain at rest, Reports chest pain with activity, Reports shortness of breath, Reports shortness of breath with activity, Reports shortness of breath when lying down, Denies excessive sweating, Denies fainting, Denies fast heart rate, Denies foot swelling, Denies generalized swelling, Denies irregular heart rhythm, Denies leg pain with activity, Denies leg sores, Denies leg swelling, Denies lightheadedness, Denies radiating jaw, neck or arm pain, Denies rapid, pounding, or irregular heartbeat , Denies shortness of breath causing sudden awakening, Denies slow heart rate, Denies other Respiratory: Reports pain on inspiration, Reports pain with cough, Reports shortness of breath, Reports shortness of breath with activity Gastrointestinal: Denies abdominal pain, Denies belching, Denies black, tarry stools, Denies bloating, Denies bright, red blood in stools, Denies change in bowel habits, Denies constant urge to pass stool, Denies change in stools, Denies coffee ground vomit, Denies constipation, Denies cramping, Denies difficulty swallowing, Denies excessive passing of gas, Denies feeling full early, Denies heartburn, Denies incontinent of stools, Denies loose stools, Denies nausea, Denies pain with swallowing, Denies vomiting, Denies vomiting blood, Denies other Genitourinary: Denies blood in semen, Denies blood in urine, Denies decreased urination, Denies difficulty urinating, Denies difficulty with ejaculations, Denies erectile dysfunction, Denies genital lesions, Denies genital pain, Denies painful urination, Denies side pain, Denies frequent nighttime urination , Denies painful ejaculations, Denies penile discharge, Denies scrotal swelling , Denies testicle lump, Denies testicle pain, Denies urinary frequency, Denies urinary hesitancy, Denies urinary incontinence, Denies urinary urgency, Denies other Musculoskeletal: Reports joint pain, Denies abnormal walking, Denies back pain, Denies body aches, Denies decreased muscle mass, Denies deformity, Denies joint swelling, Denies limited joint movement, Denies loss of height, Denies muscle cramps, Denies muscle weakness, Denies neck pain, Denies numbness, Denies radiating pain into limb, Denies stiffness, Denies tingling, Denies other Skin/Breast: Denies acne, Denies bleeding lesions, Denies boil, Denies breast swelling, Denies breast skin changes, Denies breast pain, Denies breast lump, Denies change in breast shape, Denies change in hair, Denies change in skin color, Denies changing lesions, Denies dry skin, Denies excessive hair growth, Denies hair loss, Denies itching, Denies lesions, Denies nail changes, Denies new lesions, Denies nipple discharge, Denies non-healing lesions, Denies redness , Denies sensitivity to light, Denies rash, Denies skin pain, Denies skin ulcer , Denies sores, Denies stretch lopez, Denies unusual bruising, Denies wounds, Denies yellowing of the skin, Denies other Neurologic: Denies abnormal hearing, Denies abnormal movements, Denies abnormal speech, Denies abnormal walking, Denies behavioral changes, Denies burning sensations, Denies confusion, Denies dizziness, Denies fainting, Denies frequent falls, Denies headache(s), Denies lack of coordination, Denies localized weakness, Denies loss of vision, Denies memory loss, Denies numbness, Denies other visual disturbances, Denies radiating pain, Denies restless legs, Denies convulsions, Denies seizure-like activity, Denies sensory deficit, Denies tingling, Denies tingling/numbness/burning sensations, Denies tremor(s), Denies unsteadiness, Denies weakness, Denies other Psychiatric: Denies abnormal sleep pattern, Denies anxiety, Denies behavioral changes, Denies change in appetite, Denies change in sex drive, Denies confusion , Denies depression, Denies difficulty concentrating, Denies hearing things others do not hear, Denies hopelessness, Denies irritability, Denies lack of enjoyment, Denies memory loss, Denies mood swings, Denies panic attacks, Denies paranoia, Denies seeing things others do not see, Denies sensing things others do not sense, Denies tactile hallucinations, Denies thoughts of hurting/killing others, Denies thoughts of hurting/killing yourself, Denies other Endocrine: Denies cold intolerance, Denies excessive sweating, Denies flushing, Denies heat intolerance, Denies increased hunger, Denies increased thirst, Denies increased urination, Denies rapid, pounding, or irregular heartbeat, Denies other Hematologic/Lymphatic: Denies easy bleeding, Denies easy bruising, Denies enlarged lymph nodes, Denies other Allergic/Immunologic: Denies GI upset with certain foods, Denies hives, Denies itchy eyes, Denies lip swelling, Denies seasonal runny nose, Denies throat swelling, Denies tongue swelling, Denies wheezing, Denies other PMFSH - History History Provided By: Patient - Medical History Medical History: Medical History (Last Updated 01/21/18 @ 14:16 by José Luis Gracia) Hepatitis C - Surgical History Surgical History: Surgical History (Last Updated 01/21/18 @ 14:16 by José Luis Gracia) No history of previous surgery - Tobacco History Second Hand Smoke Exposure: Yes Tobacco Use In Past 30 Days: Yes Smoking Status: Current every day smoker Tobacco Type: Cigarettes - Alcohol History How Often Do You Have a Drink Containing Alcohol: 4 or more times a week - Substance Use History Substance History: No History of Abuse - Travel History Recent Travel in the [place] Within the Last 8 Weeks: No Recent Travel Out of the Country Within the Last 8 Weeks: No - Immunization History Tetanus Immunization: >5 Years Hx Influenza Vaccine This Season: No Medications and Allergies Active Medications: Active Medications Acetaminophen (Tylenol) 650 mg PO Q6H PRN PRN Reason: TEMPERATURE > 102 F Al Hydroxide/Mg Hydroxide (Milk Of Magncyndi Liq) 30 ml PO Q6H PRN PRN Reason: CONSTIPATION Chlorhexidine Gluconate (Chlorhexidine 2% Cloth) 3 pack TOPICAL DAILY@0400 NANI Stop: 01/27/18 03:59 Chlorhexidine Gluconate (Chlorhexidine 2% Cloth) 3 pack TOPICAL DAILY@0400 PRN PRN Reason: Extra cloth needed Stop: 01/27/18 03:59 Diazepam (Valium) 2 mg PO Q8H NANI Diphenhydramine HCl (Benadryl Inj) 25 mg IV.PUSH Q6H PRN PRN Reason: for itching Docusate Sodium (Colace) 100 mg PO BID NANI Morphine Sulfate (Morphine Inj) 30 mg in 30 mls @ 0 mls/hr [employer] UNSCH PRN PRN Reason: per [employer] parameters Levetiracetam (Keppra) 500 mg PO BID NANI Lorazepam (Ativan Inj) 1 mg IV.PUSH Q2H PRN PRN Reason: SEIZURES Naloxone HCl (Narcan Inj) 0.4 mg IV.PUSH UNSCH PRN PRN Reason: Resp rate < 10 Ondansetron HCl (Zofran Inj) 4 mg IV.PUSH Q4H PRN PRN Reason: NAUSEA OR VOMITING Pantoprazole Sodium (Protonix) 40 mg PO DAILY NANI Sodium Chloride (Ns Flush) 2 ml IV.FLUSH PRN PRN PRN Reason: FLUSH AFTER USING IV ACCESS Last Admin: 01/21/18 14:37 Dose: 2 ml Sodium Chloride (Ns Flush) 2 ml IV.FLUSH UNSCH PRN PRN Reason: FLUSH AFTER USING IV ACCESS Allergies Allergy/AdvReac Type Severity Reaction Status Date / Time No Known Allergies Allergy Verified 01/21/18 14:35 Exam Vital signs: Vital Signs 01/21/18 14:12 01/21/18 14:17 01/21/18 14:23 Temperature 98.9 F 98.9 F Pulse Rate 116 H 116 H 84 Respiratory Rate 30 H 30 H Blood Pressure 181/97 H 181/97 H Pulse Oximetry 97 90 L 96 01/21/18 17:43 Temperature Pulse Rate 86 Respiratory Rate 18 Blood Pressure 136/81 Pulse Oximetry 97 Intake & Output 01/20/18 01/21/18 01/21/18 18:59 06:59 18:59 Weight 95.254 kg - Constitutional mild distress, average body habitus, disheveled - Routine HEENT Exam Head: Present: normocephalic, atraumatic Eye: Present: EOMI, PERRL ENT: Present: mucous membranes moist, oropharynx clear, nares patent, external ear normal - Routine Neck Exam Present: supple, full ROM - Routine Chest/Breast/Axilla Exam Chest wall: Present: tenderness - Routine Respiratory Exam Present: CTA bilaterally - Routine Cardiovascular Exam Present: RRR, S1 - Routine Abdominal Exam Present: soft, normoactive bowel sounds - Routine Extremities Exam Present: full ROM, pulses intact - Routine Skin Exam Present: intact, normal turgor - Routine Neurological Exam Present: oriented X3, CN II-XII intact, plantar reflex, moving all extremities, normal speech - Detailed Neurological Exam: Coma Scale Eye Opening: Spontaneous Verbal Response: Oriented Motor Response: Obey commands Guy Coma Scale Total: 15 Results - Laboratory Findings CBC and BMP: 01/21/18 14:30 01/21/18 14:30 Abnormal lab findings: Abnormal Labs 01/21/18 01/21/18 14:30 14:30 RBC 4.36 L Plt Count 114 L [place] % (Auto) 10.1 H POC Sodium 135 L Sodium 135 L POC Potassium 3.5 L POC Chloride 93 L Calcium 8.2 L Serum Alcohol 84 H - Diagnostic Findings Additional findings: Impressions Abdomen/Pelvis CT 01/21/18 14:23 CONCLUSION: 1. Multiple lower left-sided rib fractures with tiny left pneumothorax and small left hemopneumothorax. There is some air in the left lower chest wall posteriorly. 2. No acute traumatic injury identified in the upper abdomen viscera. No free fluid or free air within the abdomen. 3. Moderate degenerative change in the lower lumbar spine. Cervical Spine CT 01/21/18 14:23 CONCLUSION: No cervical spine fracture or spondylolisthesis. No canal stenosis. Tiny left pneumothorax and left pleural effusion. Chest CT 01/21/18 14:23 CONCLUSION: 1. Multiple lower left rib fractures with tiny left pneumothorax and small left hemopneumothorax. 2. Dependent atelectasis in the lungs. 3. Mild fatty liver. Chest X-Ray 01/21/18 14:23 CONCLUSION: Multiple rib fractures. No pneumothorax. Left upper lobe density likely contusion Head CT 01/21/18 14:23 CONCLUSION: 1. Left-sided subdural hematoma predominantly in the parietal region measuring around 8 mm in thickness without significant mass effect and no midline shift. Ventricular size is within normal limits. No associated fracture identified. . Pelvis X-Ray 01/21/18 14:23 CONCLUSION: Negative examination. Assessment and Plan - Assessment (1) Alcohol abuse Code(s): F10.10 - Alcohol abuse, uncomplicated Status: Acute (2) Thrombocytopenia Code(s): D69.6 - Thrombocytopenia, unspecified Status: Acute (3) Acute subdural hematoma Code(s): S06.5X9A - Traumatic subdural hemorrhage with loss of consciousness of unspecified duration, initial encounter Status: Acute - Plan 52-year-old gentleman with a small left parietal acute subdural hemorrhage after a fall with no focal neurologic deficits or any significant mass-effect or midline shift. Given his history of alcohol abuse/hepatitis and mild thrombocytopenia, he is at increased risk for further bleeding and needs to be monitored closely in the surgical intensive care unit. We will obtain a follow- up CT scan of the head tomorrow morning to rule out any progression of the subdural hemorrhage. Start on Keppra for early seizure prophylaxis, Protonix for gastrointestinal stress ulcer prophylaxis and mechanical DVT prophylaxis.
--- NOTE | 2018-01-21 18:31 | CT ---
EXAM DATE: 01/21/2018 6:07 PM EDT AGE/SEX: 52 years / Male INDICATIONS: Trauma; patient fell from roof. CLINICAL DATA: This is the patient's initial encounter. Patient reports that signs and symptoms have been present for 1 day and indicates a pain score of 7/10. MEDICAL/SURGICAL HISTORY: Hepatitis C. None. RADIATION DOSE: 10.05 CTDI (mGy) ; Combined studies COMPARISON: [facility] [place] THORACIC [place] W/O CONTRAST, 07/22/2016. . TECHNIQUE: Contiguous axial images were acquired using a multirow detector CT scanner after intraven ous administration of 75 ml Omnipaque 350 (iohexol) nonionic water-soluble contrast as a cumulative dose for multiple exams. Multiplanar reconstruction in the sagittal and coronal planes was performe d. Using automated exposure control and adjustment of the mA and/or kV according to patient size, ra diation dose was kept as low as reasonably achievable to obtain optimal diagnostic quality images. D ICOM format image data is available electronically for review and comparison. FINDINGS: There is normal alignment of vertebral bodies and thoracic spine in sagittal projection. Anterior inf erior Schmorl's node at T9 and sclerosis of the anterior inferior T10 vertebral body is unchanged in appearance when compared to prior CT thoracic spine in July 2016. Small anterior bridging paraver tebral ossification at T5-6 is also stable. No compression deformities seen. No fracture lines identi fied. The costovertebral junctions are intact. There is a minimal curvature of the lower thoracic spi ne convex towards the right. Concurrently performed CT thorax had demonstrated left rib fractures, sm all left hemopneumothorax and dependent atelectasis and are described on the CT thorax report. CONCLUSION: 1. No acute findings in the thoracic vertebral bodies. Electronically signed by: Albert Chamberlain MD 01/21/2018 6:30 PM EDT
--- NOTE | 2018-01-21 18:41 | CT ---
EXAM DATE: 01/21/2018 6:14 PM EDT AGE/SEX: 52 years / Male INDICATIONS: Trauma; patient fell from a roof. CLINICAL DATA: This is the patient's initial encounter. Patient reports that signs and symptoms have been present for 1 day and indicates a pain score of 7/10. MEDICAL/SURGICAL HISTORY: Hepatitis C. None. RADIATION DOSE: 10.05 CTDI (mGy) ;Tabletop exam [place] [facility] [place] 07/22/2016. . TECHNIQUE: Contiguous axial images were acquired with a multirow detector CT scanner after intraveno us administration of 75 ml Omnipaque 350 (iohexol) nonionic water-soluble contrast as a cumulative d ose for multiple exams. Multiplanar reconstructions in the sagittal and coronal plane were also perf ormed. Using automated exposure control and adjustment of the mA and/or kV according to patient size, radiation dose was kept as low as reasonably achievable to obtain optimal diagnostic quality images. DICOM format image data is available electronically for review and comparison. FINDINGS: There is preservation of vertebral body height and alignment. Endplate sclerosis at L4-5 with vacuum phenomenon is similar to prior examination. Posterior superior area of sclerosis L2 vertebral bodies also unchanged from July 2016. No evidence of compression deformity or spondylolisthesis. The tra nsverse processes and spinous processes are intact. CONCLUSION: 1. No acute findings in the lumbar spine. Electronically signed by: Albert Chamberlain MD 01/21/2018 6:40 PM EDT
[2018-01-21] MEDS ORDERED: Labetalol HCl Inj 100 MG/20 ML Vial IV.PUSH PRN (19:00)
[2018-01-21] MEDS: diazePAM 2 MG Tablet PO SCH (21:50)
[2018-01-21] MEDS: Morphine Inj 30 MG/30 ML PCA.VIAL PCA PRN (21:54)
[2018-01-21] MEDS: Lidocaine 5% Patch T-DERMAL SCH (22:44)
[2018-01-21] MEDS: Docusate Sodium 100 MG Capsule PO SCH (22:44)
[2018-01-21] MEDS: levETIRAcetam 500 MG Tablet PO SCH (22:44)
[2018-01-22] MEDS: diazePAM 2 MG Tablet PO SCH ×3 (02:04→18:11)
[2018-01-22] MEDS ORDERED: Chlorhexidine Gluconate 2% 1 Pack (2 Cloths) TOPICAL PRN (04:00)
--- NOTE | 2018-01-22 05:10 | CT ---
EXAM DATE: 01/22/2018 4:52 AM EDT AGE/SEX: 52 years / Male INDICATIONS: Follow up trauma; patient fell from a ladder yesterday. CLINICAL DATA: This is the patient's initial encounter. Patient reports that signs and symptoms have been present for 1 day and indicates a pain score of 6/10. MEDICAL/SURGICAL HISTORY: None. None. RADIATION DOSE: 66.34 CTDI (mGy) COMPARISON: [facility] – [place], [place] HEAD W/O CONTRAST, 01/21/2018. . TECHNIQUE: CT of the head without contrast. Using automated exposure control and adjustment of the mA and/or kV according to patient size, radiation dose was kept as low as reasonably achievable to ob tain optimal diagnostic quality images. DICOM format image data is available electronically for revi ew and comparison. FINDINGS: There is a left sided subdural hematoma with a maximal transverse thickness near the vertex measuring 1.1 cm. There is patchy periventricular white matter disease. No significant midline shift. No signs of acute infarct or mass. No fractures. CONCLUSION: 1. Left subdural hematoma not significantly changed. . Electronically signed by: Joel Romano MD 01/22/2018 5:09 AM EDT
--- NOTE | 2018-01-22 05:16 | XR ---
EXAM DATE: 01/22/2018 4:52 AM EDT AGE/SEX: 52 years / Male INDICATIONS: Follow up trauma, fall off a ladder. Multiple rib fractures. CLINICAL DATA: This is the patient's subsequent encounter. Patient reports that signs and symptoms h ave been present for 3 days and indicates a pain score of Nonresponsive. MEDICAL/SURGICAL HISTORY: None. None. COMPARISON: [facility], CT CHEST W CONTRAST, 01/21/2018. . FINDINGS: There is patchy airspace disease in the left lower lobe. No effusions. Cardiomegaly. Osseous structur es are intact. CONCLUSION: Left lower lobe airspace disease. Electronically signed by: Joel Romano MD 01/22/2018 5:14 AM EDT
[2018-01-22 06:11] LABS: Baso % (Auto) 0.4 % (0.0-2.0); Eos # (Auto) 0.1 th/mm3 (0.0-0.4); Eos % (Auto) 2.8 % (0.0-4.0); Hematocrit 37.8 % (39.0-51.0); Hemoglobin 13.3 gm/dL (13.0-17.0); Lymph # (Auto) 0.7 th/mm3 (1.0-4.8); Lymph % (Auto) 16.7 % (9.0-44.0); Mean Corpuscular HGB Conc 35.3 % (32.0-36.0); Mean Corpuscular Volume 96.4 fL (80.0-100.0); Mean Platelet Volume 7.2 fL (7.0-11.0); Mono # (Auto) 0.5 th/mm3 (0.0-0.9); Neut % (Auto) 68.1 % (16.0-70.0); Platelet Count 84 th/mm3 (150-450); Red Blood Count 3.92 mil/mm3 (4.50-5.90); Red Cell Distribution Width 13.3 % (11.6-17.2); White Blood Count 4.4 th/mm3 (4.0-11.0)
[2018-01-22 06:32] LABS: Anion Gap 4 meq/L (5-15); Blood Urea Nitrogen 11 mg/dL (7-18); Calcium 8.3 mg/dL (8.5-10.1); Carbon Dioxide 29.7 meq/L (21.0-32.0); Chloride 99 meq/L (98-107); Glomerular Filtration Rate Greater Than 89 mL/min (>89); Glucose,Random 120 mg/dL (74-106); Potassium 3.8 meq/L (3.5-5.1); Sodium 133 meq/L (136-145)
[2018-01-22] MEDS: Chlorhexidine Gluconate 2% 1 Pack (2 Cloths) TOPICAL SCH (08:07)
[2018-01-22] MEDS: Morphine Inj 30 MG/30 ML PCA.VIAL PCA PRN ×2 (08:07→22:06)
[2018-01-22] MEDS: Docusate Sodium 100 MG Capsule PO SCH ×2 (08:36→23:44)
[2018-01-22] MEDS: levETIRAcetam 500 MG Tablet PO SCH ×2 (08:36→23:44)
[2018-01-22] MEDS ORDERED: Lidocaine 5% Patch T-DERMAL SCH (09:00)
[2018-01-22] MEDS ORDERED: Methadone 10 MG Tablet PO SCH (10:30)
--- NOTE | 2018-01-22 10:40 | P.PNNS ---
Subjective Interval history: History of Present Illness: 52-year-old gentleman brought in to [facility] as a trauma alert after a fall from a ladder about 8 feet in height without loss of consciousness. His main complaint is extreme left-sided chest wall pain with any movement and some shortness of breath. Denies any headaches at this point or any numbness or paresthesias in the upper or lower extremities. He has been evaluated by trauma surgery and a workup included CT scan of the head which reveals about an 8 mm left parietal convexity subdural hemorrhage without any significant midline shift. CT the cervical spine does not reveal any fracture. He does have multiple left-sided rib fractures along with a pneumothorax. He has been admitted to the intensive care unit under the trauma surgery service and neurosurgery consultation requested. He also has a history of opiate abuse and dependency and is a chronic alcoholic. 01/23/18: Pt awake and alert. Denies headache, nausea, vomiting. Complains of significant left chest wall pain. 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 <Benny Carl - Last Filed: 01/22/18 10:29> Physical Exam Vital signs: Vital Signs 01/21/18 14:12 01/21/18 14:17 01/21/18 14:23 Temperature 98.9 F 98.9 F Pulse Rate 116 H 116 H 84 Respiratory Rate 30 H 30 H Blood Pressure 181/97 H 181/97 H Pulse Oximetry 97 90 L 96 01/21/18 17:43 01/21/18 20:00 01/21/18 22:00 Temperature 99.0 F Pulse Rate 86 88 Respiratory Rate 18 24 Blood Pressure 136/81 160/87 H Pulse Oximetry 97 94 L 96 01/21/18 23:00 01/22/18 00:00 01/22/18 01:00 Temperature 99.0 F 99.0 F 98.7 F Pulse Rate 78 78 Respiratory Rate 11 L Blood Pressure 143/80 H 138/84 Pulse Oximetry 97 95 01/22/18 02:00 01/22/18 03:00 01/22/18 04:00 Temperature 98.4 F 98.5 F 98.1 F Pulse Rate 76 74 84 Respiratory Rate Blood Pressure 143/81 H 144/85 H 175/97 H Pulse Oximetry 97 96 94 L 01/22/18 05:00 01/22/18 06:00 01/22/18 07:51 Temperature 98.0 F 98.7 F Pulse Rate 84 80 Respiratory Rate 23 Blood Pressure 162/90 H 129/78 Pulse Oximetry 96 94 L 97 01/22/18 08:00 01/22/18 09:00 Temperature 97.9 F Pulse Rate 72 78 Respiratory Rate 12 Blood Pressure 130/74 Pulse Oximetry 96 Intake & Output 01/21/18 01/22/18 01/22/18 18:59 06:59 18:59 Intake Total 420 / 420 Output Total 200 / 200 Balance 220 / 220 Weight 95.254 kg Intake: Oral 420 / 420 Output: Urine 200 / 200 Other: Weight On Admission 92.25 kg - Constitutional mild distress (Related to pain.), average body habitus - Routine HEENT Exam Head: Present: normocephalic, atraumatic. Absent: facial swelling Eye: Present: PERRL. Absent: conjunctival icterus, periorbital ecchymosis, periorbital swelling ENT: Present: oropharynx clear - Routine Neck Exam Present: trachea midline - Routine Respiratory Exam Present: CTA bilaterally. Absent: respiratory distress, rhonchi, wheezes - Routine Cardiovascular Exam Present: RRR, S1, S2. Absent: murmur - Routine Abdominal Exam Present: soft, normoactive bowel sounds. Absent: tenderness, distended - Routine Skin Exam Absent: cyanosis, erythema - Routine Neurological Exam Present: alert, oriented X3, moving all extremities, normal speech. Absent: sensory deficit, motor deficit, altered mental status - Detailed Neurological Exam: Coma Scale Eye Opening: Spontaneous Verbal Response: Oriented Motor Response: Obey commands [place] Coma Scale Total: 15 - Routine Psychiatric Exam Present: normal affect, normal thought process, good insight, good judgment. Absent: agitated <Benny Carl - Last Filed: 01/22/18 10:29> Vital signs: Vital Signs 01/21/18 14:12 01/21/18 14:17 01/21/18 14:23 Temperature 98.9 F 98.9 F Pulse Rate 116 H 116 H 84 Respiratory Rate 30 H 30 H Blood Pressure 181/97 H 181/97 H Pulse Oximetry 97 90 L 96 01/21/18 17:43 01/21/18 20:00 01/21/18 22:00 Temperature 99.0 F Pulse Rate 86 88 Respiratory Rate 18 24 Blood Pressure 136/81 160/87 H Pulse Oximetry 97 94 L 96 01/21/18 23:00 01/22/18 00:00 01/22/18 01:00 Temperature 99.0 F 99.0 F 98.7 F Pulse Rate 78 78 Respiratory Rate 11 L Blood Pressure 143/80 H 138/84 Pulse Oximetry 97 95 01/22/18 02:00 01/22/18 03:00 01/22/18 04:00 Temperature 98.4 F 98.5 F 98.1 F Pulse Rate 76 74 84 Respiratory Rate Blood Pressure 143/81 H 144/85 H 175/97 H Pulse Oximetry 97 96 94 L 01/22/18 05:00 01/22/18 06:00 01/22/18 07:51 Temperature 98.0 F 98.7 F Pulse Rate 84 80 Respiratory Rate 23 Blood Pressure 162/90 H 129/78 Pulse Oximetry 96 94 L 97 01/22/18 08:00 01/22/18 09:00 01/22/18 12:00 Temperature 97.9 F 98.0 F Pulse Rate 72 78 64 Respiratory Rate 12 19 Blood Pressure 130/74 125/72 Pulse Oximetry 96 97 Intake & Output 01/21/18 01/22/18 01/22/18 18:59 06:59 18:59 Intake Total 420 / 420 Output Total 200 / 200 Balance 220 / 220 Weight 95.254 kg Intake: Oral 420 / 420 Output: Urine 200 / 200 Other: Weight On Admission 92.25 kg <Brennan Yusuf - Last Filed: 01/22/18 13:37> Assessment and Plan - Assessment (1) Acute subdural hematoma Code(s): S06.5X9A - Traumatic subdural hemorrhage with loss of consciousness of unspecified duration, initial encounter Status: Acute (2) Alcohol abuse Code(s): F10.10 - Alcohol abuse, uncomplicated Status: Acute (3) Fracture, ribs Code(s): S22.39XA - Fracture of one rib, unspecified side, initial encounter for closed fracture Status: Acute (4) Hemopneumothorax on left Code(s): J94.2 - Hemothorax Status: Acute (5) Pneumothorax Code(s): J93.9 - Pneumothorax, unspecified Status: Acute (6) Thrombocytopenia Code(s): D69.6 - Thrombocytopenia, unspecified Status: Acute - Plan A: 52-year-old gentleman with a small left parietal acute subdural hemorrhage after a fall with no focal neurologic deficits or any significant mass-effect or midline shift. Given his history of alcohol abuse/hepatitis and mild thrombocytopenia, he is at increased risk for further bleeding and needs to be monitored closely in the surgical intensive care unit. Follow up CT head reveals the SDH has not increased in size. P: We will obtain a follow-up CT scan of the head tomorrow morning to rule out any progression of the subdural hemorrhage. Keppra for early seizure prophylaxis Protonix for gastrointestinal stress ulcer prophylaxis Mechanical DVT prophylaxis. <Benny Carl - Last Filed: 01/22/18 10:29> - Assessment (1) Alcohol abuse Code(s): F10.10 - Alcohol abuse, uncomplicated Status: Acute (2) Thrombocytopenia Code(s): D69.6 - Thrombocytopenia, unspecified Status: Acute (3) Acute subdural hematoma Code(s): S06.5X9A - Traumatic subdural hemorrhage with loss of consciousness of unspecified duration, initial encounter Status: Acute - Attending Attestation The exam, history, and the medical decision-making described in the above note were completed with the assistance of the mid-level provider. I reviewed and agree with the findings presented. I attest that I had a [id number] encounter with the patient on the same day, and personally performed and documented my assessment and findings in the medical record. Neurologic examination stable with no progression of the bleed of rehemorrhage on follow- up CT scan of the head. Worsening thrombocytopenia likely related to history of alcohol abuse. Transfuse if platelet counts drop further and monitor closely for alcohol withdrawal symptoms. <Brennan Yusuf - Last Filed: 01/22/18 13:37>
[2018-01-22] MEDS ORDERED: Morphine Sulfate Inj 2 MG/ML Vial IV.PUSH PRN (18:13)
[2018-01-22] MEDS ORDERED: Naloxone Inj 0.4 MG/ML Vial IV.PUSH PRN (22:02)
[2018-01-22] MEDS ORDERED: Ketorolac Inj 30 MG/ML (IVP) Vial IV.PUSH SCH (23:00)
--- NOTE | 2018-01-22 23:40 | XR ---
EXAM DATE: 01/22/2018 11:32 PM EDT AGE/SEX: 52 years / Male INDICATIONS: Shortness of breath. CLINICAL DATA: This is the patient's subsequent encounter. Patient reports that signs and symptoms h ave been present for 3 days and indicates a pain score of Nonresponsive. MEDICAL/SURGICAL HISTORY: None. None. COMPARISON: [facility] [place], CHEST 1V SINGLE AP, 01/22/2018. . FINDINGS: There is patchy basilar airspace disease in the lower lobes. Cardiomegaly. No obvious effusion. EKG l scott are present. Osseous structures are intact. CONCLUSION: Lower lobe airspace disease. Electronically signed by: Joel Romano MD 01/22/2018 11:38 PM EDT
[2018-01-22] MEDS: Lidocaine 5% Patch T-DERMAL SCH (23:46)
[2018-01-22] MEDS: Ketorolac Inj 30 MG/ML (IVP) Vial IV.PUSH SCH (23:46)
[2018-01-22] MEDS: MULTIVITAMIN IV.SIG SCH (23:47)
[2018-01-22] MEDS: SODIUM CHLOR IV.SIG SCH (23:47)
[2018-01-23] MEDS: diazePAM 2 MG Tablet PO SCH ×3 (02:19→17:14)
[2018-01-23] MEDS: Morphine Inj 30 MG/30 ML PCA.VIAL PCA PRN ×4 (03:31→22:36)
[2018-01-23] MEDS: Chlorhexidine Gluconate 2% 1 Pack (2 Cloths) TOPICAL SCH (04:58)
[2018-01-23] MEDS: Ketorolac Inj 30 MG/ML (IVP) Vial IV.PUSH SCH ×3 (06:05→21:37)
--- NOTE | 2018-01-23 08:22 | P.NPEVAL ---
Patient History - Record/History Review Reason for Referral: The patient is a 52 year old right handed male status post complicated mild traumatic brain injury secondary to fall on 01/21/2018. The patient was on a ladder and fell. Head CT showed left SDH in parietal region. No LOC. He has a history of [facility] methadone use. He is referred for baseline neurobehavioral status examination per trauma protocol to assess cognitive, behavioral and emotional aspects of the injury and to provide treatment recommendations. PMF - History History Provided By: Patient - Medical History Medical History: Medical History (Last Reviewed 01/22/18 @ 13:04 by Letty Saravia) Hepatitis C - Surgical History Surgical History: Surgical History (Last Reviewed 01/22/18 @ 08:10 by Jaki Ledezma) No history of previous surgery - Tobacco History Second Hand Smoke Exposure: Yes Tobacco Use In Past 30 Days: Yes Smoking Status: Current every day smoker Tobacco Type: Cigarettes - Alcohol History How Often Do You Have a Drink Containing Alcohol: 4 or more times a week - Substance Use History Substance History: No History of Abuse - Travel History Recent Travel in the [facility] Within the Last 8 Weeks: No Recent Travel Out of the Country Within the Last 8 Weeks: No - Immunization History Tetanus Immunization: >5 Years Hx Influenza Vaccine This Season: No Medications Active Medications Acetaminophen (Tylenol) 650 mg PO Q6H PRN PRN Reason: TEMPERATURE > 102 F Al Hydroxide/Mg Hydroxide (Milk Of Dayron Schaefer) 30 ml PO BID [facility] Last Admin: 01/22/18 23:44 Dose: 30 ml Albuterol (Duoneb Neb ([facility])) 1 ampul NEB Q4HR NEB [facility] Last Admin: 01/22/18 23:07 Dose: 1 ampul Albuterol (Duoneb Neb (Jermaine)) 1 ampul NEB Q4HR [facility] Chlorhexidine Gluconate (Chlorhexidine 2% Cloth) 3 pack TOPICAL DAILY@0400 [facility] Stop: 01/27/18 03:59 Last Admin: 01/23/18 04:58 Dose: 3 pack Chlorhexidine Gluconate (Chlorhexidine 2% Cloth) 3 pack TOPICAL DAILY@0400 PRN PRN Reason: Extra cloth needed Stop: 01/27/18 03:59 Diazepam (Valium) 2 mg PO Q8H [facility] Last Admin: 01/23/18 02:19 Dose: 2 mg Docusate Sodium (Colace) 100 mg PO BID [facility] Last Admin: 01/22/18 23:44 Dose: 100 mg Morphine Sulfate (Morphine Inj) 30 mg in 30 mls @ 0 mls/hr DELI SLICER UNSCH PRN PRN Reason: per DELI SLICER parameters Last Admin: 01/23/18 03:31 Dose: 0 mls/hr Multivitamins 10 ml/ Sodium (Chloride) 510 mls @ 125 mls/hr IV.SIG Q24H [facility] Last Admin: 01/22/18 23:47 Dose: 125 mls/hr Ketorolac Tromethamine (Toradol Inj) 30 mg IV.PUSH Q8HR [facility] Stop: 01/27/18 23:14 Last Admin: 01/23/18 06:05 Dose: 30 mg Labetalol HCl (Trandate Inj) 10 mg IV.PUSH Q20M PRN PRN Reason: SBP>160, DBP>90 Levetiracetam (Keppra) 500 mg PO BID [facility] Last Admin: 01/22/18 23:44 Dose: 500 mg Lidocaine HCl (Lidoderm 5% Patch.12 Hr) 1 patch T-DERMAL DAILY@2300 [facility] Last Admin: 01/22/18 23:46 Dose: 1 patch Morphine Sulfate (Morphine Inj) 2 mg IV.PUSH Q6H PRN PRN Reason: BREAKTHROUGH PAIN Last Admin: 01/22/18 18:37 Dose: 2 mg Naloxone HCl (Narcan Inj) 0.4 mg IV.PUSH PRN PRN PRN Reason: Resp rate < 10 Nicotine (Habitrol 14 Mg Patch.24 Hr) 1 patch T-DERMAL DAILY [facility] Last Admin: 01/22/18 15:38 Dose: 1 patch Ondansetron HCl (Zofran Inj) 4 mg IV.PUSH Q4H PRN PRN Reason: NAUSEA OR VOMITING Pantoprazole Sodium (Protonix) 40 mg PO DAILY [facility] Last Admin: 01/22/18 08:37 Dose: 40 mg Patch Removal (Remove Old Patch) 1 each T-DERMAL DAILY@1100 [facility] Last Admin: 01/22/18 11:44 Dose: 1 each Patch Removal (Remove Old Patch) 1 each T-DERMAL HS [facility] Last Admin: 01/22/18 23:44 Dose: 1 each Sodium Chloride (Ns Flush) 2 ml IV.FLUSH PRN PRN PRN Reason: FLUSH AFTER USING IV ACCESS Last Admin: 01/21/18 14:37 Dose: 2 ml Sodium Chloride (Ns Flush) 2 ml IV.FLUSH UNSCH PRN PRN Reason: FLUSH AFTER USING IV ACCESS Mental Status Assessment - Mental Status Orientation: oriented to: Self, Place, Time, Situation Mental Status: WFL: Thought processing, Language/interactions, Attention, Learning/memory, Problem-solving, Visuospatial/construction, Self-regulation, Other Absent: Hallucinations, Delusions Adjustment/Coping Assessment - Adjustment/Coping Adjustment/Coping: Mild: Awareness, Insight - Observation In terms of emotional functioning, the patient demonstrated normal adjustment. This patient demonstrated no signs of agitation, impulsivity or disinhibition, nor was there remarkable evidence of a formal thought disorder or psychosis. There was no evidence of depression or anxiety. Thought content was free from suicidal, homicidal or paranoid ideation, and thought processes were logical and goal-directed albeit somewhat bradyphrenic. The patients mood was euthymic, and his affect was stable and appropriate. The patient appears to possess adequate insight and awareness into their situation and within the limits of this brief evaluation, adequate judgment. - Goals/Team Members LTG Status: Deferred STG Status: Deferred Team Members: Neuropsychologist Behavior - Behavior Treatment Engagement: Average - Observation Behaviorally, the patient demonstrated no signs of agitation, impulsivity or disinhibition. There was no remarkable evidence of a formal thought disorder or psychosis. - Goals LTG Status: Deferred STG Status: Deferred - Team Members Team Members: Neuropsychologist Diagnosis/Discharge Plan - Diagnosis (1) Mild neurocognitive disorder due to traumatic brain injury Status: Acute Impression: The patient is 52 year old male s/p complicated mild TBI 2T fall on 01/21/2018. Disinhibition Score: 17.50 Aggression Score: 17.50 Lability Score: 18.66 Agitated Behavior Total Score: 18 Maximizing Acute Care Outcome: It is recommended that the patient be monitored for emergent behavioral impulsivity as the medical condition evolves. This patients neuropathological challenges may limit rehabilitation potential going forward, and these challenges will require specialized therapeutic skills to maximize outcome. At this point in the recovery process, the patient does have cognitive capacity as the patient is able to understand a situation and its likely consequences, and he is able to manipulate information rationally. Cognitive capacity will be assessed throughout the recovery process. - Discharge Planning Anticipated Problems: Ongoing areas of concern will include behavioral impulsivity, lack of insight and judgment, which is expected to improve with time and treatment. Presently , the patient is acutely ill. Treatment Plan: This clinician will continue to follow with you throughout the course of this patients rehabilitation treatment, and I will be available to meet with the patients family/support system to facilitate their understanding and the ongoing care of their family member. The goals of neuropsychological intervention shall be both educational and supportive to the family/support system as is deemed clinically appropriate. Thank you for the opportunity to assist in this patients care. Greyson Beaver, Ph.D., ABPP Board Certified in Clinical Neuropsychology [place] [employer] Professional Psychology [place] Licensed Psychologist #[id number]
[2018-01-23] MEDS: levETIRAcetam 500 MG Tablet PO SCH ×2 (08:23→21:37)
[2018-01-23] MEDS: Docusate Sodium 100 MG Capsule PO SCH ×2 (08:23→21:37)
--- NOTE | 2018-01-23 09:31 | XR ---
EXAM DATE: 01/23/2018 8:26 AM EDT AGE/SEX: 52 years / Male INDICATIONS: Follow up trauma. Shortness of breath. CLINICAL DATA: This is the patient's subsequent encounter. Patient reports that signs and symptoms h ave been present for 3 days and indicates a pain score of 7/10. MEDICAL/SURGICAL HISTORY: Hepatitis C. None. COMPARISON: Previous chest x-ray dated 01/22/2018. FINDINGS: There is evidence of a 15 mm left apical pneumothorax. There is persistent right basilar consolidatio n consistent with atelectasis and/or infiltrate. The left lung is clear. The heart is stable. CONCLUSION: 1. Stable left apical pneumothorax measuring 15 mm. 2. Persistent right basilar consolidation consistent with atelectasis and/or infiltrate. Clinical co rrelation is recommended. Electronically signed by: Cliff Mercado MD 01/23/2018 9:30 AM EDT
[2018-01-23 09:55] LABS: Hematocrit 37.4 % (39.0-51.0); Mean Corpuscular HGB Conc 34.8 % (32.0-36.0); Mean Corpuscular Hemoglobin 34.3 pg (27.0-34.0); Mean Corpuscular Volume 98.5 fL (80.0-100.0); Mean Platelet Volume 7.7 fL (7.0-11.0); Platelet Count 75 th/mm3 (150-450); Red Cell Distribution Width 13.2 % (11.6-17.2); White Blood Count 4.8 th/mm3 (4.0-11.0)
[2018-01-23 10:22] LABS: Anion Gap 5 meq/L (5-15); Blood Urea Nitrogen 12 mg/dL (7-18); Calcium 8.2 mg/dL (8.5-10.1); Chloride 98 meq/L (98-107); Glomerular Filtration Rate Greater Than 89 mL/min (>89); Glucose,Random 111 mg/dL (74-106); Potassium 3.9 meq/L (3.5-5.1); Sodium 135 meq/L (136-145)
--- NOTE | 2018-01-23 14:43 | XR ---
EXAM DATE: 01/23/2018 2:32 PM EDT AGE/SEX: 52 years / Male INDICATIONS: Pneumothorax. CLINICAL DATA: This is the patient's initial encounter. Patient reports that signs and symptoms have been present for 3 days and indicates a pain score of 9/10. MEDICAL/SURGICAL HISTORY: Hepatitis C. . ORIF left ankle. COMPARISON: [facility], CHEST 1V SINGLE AP, 01/23/2018. . FINDINGS: The tiny left apical pneumothorax has decreased in size compared to the previous examination and now measures 8 mm. Right basilar patchiness is slightly worse on the previous examination. CONCLUSION: 1. Tiny left apical pneumothorax has decreased in size compared to the previous examination and now measures 8 mm. 2. Slight interval worsening of right basilar consolidation. Electronically signed by: Cliff Mercado MD 01/23/2018 2:42 PM EDT
--- NOTE | 2018-01-23 18:26 | P.PNCC ---
Subjective Brief History: 52-year-old male fell off about 8 foot roof. Positive loss of consciousness was transferred to our institution as priority 2 trauma alert and worked up. Patient is found to have subdural hematoma without midline shift as well as serial left rib fractures Patient remembers the accident and states that he drank heavily before lunch and is also on about 130 mg of methadone twice a day for the last 10 years which clearly does not help if you are on the roof. Patient was resuscitated according to trauma principles worked up fully with diagnostic and laboratory workup Final injuries detected Left subdural hematoma without midline shift Left seventh eighth ninth and 10th rib fracture with small hemothorax and pulmonary contusion 24 Hour Review/Hospital Course: 01/23/2018 Patient is stable for last 24 hours Neurologic patient is fully intact with bilateral motoric full range of motion Normal deep tendon reflexes no pathologic reflexes Pupils equal reactive Hemodynamically patient stable Good bilateral breath sounds with some rhonchi and good pulmonary inspiratory effort however patient requires large amount of pain medication to get there Patient had a period of desaturation last night when he was taken off morphine and stayed only on methadone and intermittent morphine which he did not tolerate for he was splinting chest and starting to develop atelectasis Currently on morphine SUB ARC OPERATOR pump as well as Toradol IV Patient seeking more methadone but both of these will not work and cancel each other out Abdomen soft active bowel sounds Diet well-tolerated Objective Vital Signs / I&O: Vital Signs 01/22/18 20:00 01/22/18 23:09 01/23/18 00:00 Temperature 98.9 F Pulse Rate 104 H 104 H Respiratory Rate 21 32 H Blood Pressure 162/87 H Pulse Oximetry 93 L 97 01/23/18 04:00 01/23/18 08:00 01/23/18 08:38 Temperature 98.1 F 97.9 F Pulse Rate 23 L 71 80 Respiratory Rate 23 30 H 22 Blood Pressure 135/80 167/94 H Pulse Oximetry 97 98 94 L 01/23/18 08:39 01/23/18 09:00 01/23/18 11:05 Temperature Pulse Rate 80 Respiratory Rate 14 Blood Pressure Pulse Oximetry 94 L 01/23/18 12:00 01/23/18 12:31 01/23/18 12:59 Temperature 98.3 F 98.3 F Pulse Rate 87 91 H 106 H Respiratory Rate 16 24 30 H Blood Pressure 153/79 H 153/79 H Pulse Oximetry 92 L 01/23/18 13:29 01/23/18 14:42 01/23/18 16:00 Temperature 98.9 F Pulse Rate 95 H Respiratory Rate 25 H 20 Blood Pressure 141/76 H Pulse Oximetry 94 L 98 01/23/18 16:37 Temperature Pulse Rate 100 H Respiratory Rate 18 Blood Pressure Pulse Oximetry Intake & Output 01/22/18 01/23/18 01/23/18 18:59 06:59 18:59 Intake Total 420 / 420 990 / 990 Output Total 200 / 200 850 / 850 Balance 220 / 220 140 / 140 Weight 95.254 kg Intake: IV 510 / 510 MVI-12 Inj 10 ML In NS Inj 500 510 / 510 ML @ 125 mls/hr IV.SIG Q24H [facility] Rx#:[id number] Oral 420 / 420 480 / 480 Intake (Blood Product) Amt 0 / 0 Plt Pheresis B Leukoreduced 0 / 0 Unit [id number] Output: Urine 200 / 200 850 / 850 Other: # Voids 3 Result Diagrams: 01/23/18 09:17 01/23/18 09:17 Imaging: Impressions Chest X-Ray 01/22/18 00:00 CONCLUSION: Lower lobe airspace disease. Chest X-Ray 01/23/18 07:44 CONCLUSION: 1. Stable left apical pneumothorax measuring 15 mm. 2. Persistent right basilar consolidation consistent with atelectasis and/or infiltrate. Clinical correlation is recommended. Chest X-Ray 01/23/18 13:06 CONCLUSION: 1. Tiny left apical pneumothorax has decreased in size compared to the previous examination and now measures 8 mm. 2. Slight interval worsening of right basilar consolidation. Disinhibition Score: 17.50 Aggression Score: 17.50 Lability Score: 18.66 Agitated Behavior Total Score: 18 - Exam MANAGER OF CARE: Patient is stable for last 24 hours Neurologic patient is fully intact with bilateral motoric full range of motion Normal deep tendon reflexes no pathologic reflexes Pupils equal reactive Hemodynamic/Cardiac: Hemodynamically patient remained stable Pulmonary/Respiratory: Hemodynamically patient stable Good bilateral breath sounds with some rhonchi and good pulmonary inspiratory effort however patient requires large amount of pain medication to get there Patient had a period of desaturation last night when he was taken off morphine and stayed only on methadone and intermittent morphine which he did not tolerate for he was splinting chest and starting to develop atelectasis Placed on high flow oxygen and saturations and PO2 FiO2 gradient has improved since Currently on morphine SUB ARC OPERATOR pump as well as Toradol IV Patient seeking more methadone but both of these will not work and cancel each other out Abdomen/GI Nutrition: Abdomen soft active bowel sounds Diet well-tolerated Assessment and Plan Attestation: critical care time 32 minutes
--- NOTE | 2018-01-23 18:53 | P.PNNS ---
Subjective Interval history: Pt awake and alert. Complains of anxiety. Follows simple commands well. <Benny Carl - Last Filed: 01/23/18 18:48> Physical Exam Vital signs: Vital Signs 01/22/18 20:00 01/22/18 23:09 01/23/18 00:00 Temperature 98.9 F Pulse Rate 104 H 104 H Respiratory Rate 21 32 H Blood Pressure 162/87 H Pulse Oximetry 93 L 97 01/23/18 04:00 01/23/18 08:00 01/23/18 08:38 Temperature 98.1 F 97.9 F Pulse Rate 23 L 71 80 Respiratory Rate 23 30 H 22 Blood Pressure 135/80 167/94 H Pulse Oximetry 97 98 94 L 01/23/18 08:39 01/23/18 09:00 01/23/18 11:05 Temperature Pulse Rate 80 Respiratory Rate 14 Blood Pressure Pulse Oximetry 94 L 01/23/18 12:00 01/23/18 12:31 01/23/18 12:59 Temperature 98.3 F 98.3 F Pulse Rate 87 91 H 106 H Respiratory Rate 16 24 30 H Blood Pressure 153/79 H 153/79 H Pulse Oximetry 92 L 01/23/18 13:29 01/23/18 14:42 01/23/18 16:00 Temperature 98.9 F Pulse Rate 95 H Respiratory Rate 25 H 20 Blood Pressure 141/76 H Pulse Oximetry 94 L 98 01/23/18 16:37 Temperature Pulse Rate 100 H Respiratory Rate 18 Blood Pressure Pulse Oximetry Intake & Output 01/22/18 01/23/18 01/23/18 18:59 06:59 18:59 Intake Total 420 / 420 990 / 990 Output Total 200 / 200 850 / 850 Balance 220 / 220 140 / 140 Weight 95.254 kg Intake: IV 510 / 510 MVI-12 Inj 10 ML In NS Inj 500 510 / 510 ML @ 125 mls/hr IV.SIG Q24H NANI Rx#:[id number] Oral 420 / 420 480 / 480 Intake (Blood Product) Amt 0 / 0 Plt Pheresis B Leukoreduced 0 / 0 Unit [id number] Output: Urine 200 / 200 850 / 850 Other: # Voids 3 - Constitutional mild distress (Feeling better but anxious.), disheveled, cooperative, agitated ( mild more of an anxiety than agitated.) - Routine HEENT Exam Head: Present: normocephalic, atraumatic Eye: Present: PERRL. Absent: conjunctival icterus ENT: Present: oropharynx clear - Routine Respiratory Exam Present: CTA bilaterally. Absent: patient mechanically ventilated, respiratory distress, rhonchi, wheezes - Routine Cardiovascular Exam Present: RRR, S1, S2. Absent: murmur - Routine Abdominal Exam Present: soft, normoactive bowel sounds. Absent: distended - Routine Skin Exam Absent: cyanosis, erythema - Routine Neurological Exam Present: alert, moving all extremities, normal speech. Absent: motor deficit - Detailed Neurological Exam: Coma Scale Eye Opening: Spontaneous Verbal Response: Oriented Motor Response: Obey commands [place] Coma Scale Total: 15 - Routine Psychiatric Exam Present: cooperative, anxious (Need to monitor closely for withdrawal.) <Benny Carl - Last Filed: 01/23/18 18:48> Vital signs: Vital Signs 01/23/18 12:00 01/23/18 12:31 01/23/18 12:59 Temperature 98.3 F 98.3 F Pulse Rate 87 91 H 106 H Respiratory Rate 16 24 30 H Blood Pressure 153/79 H 153/79 H Pulse Oximetry 92 L 01/23/18 13:29 01/23/18 14:42 01/23/18 16:00 Temperature 98.9 F Pulse Rate 95 H Respiratory Rate 25 H 20 Blood Pressure 141/76 H Pulse Oximetry 94 L 98 01/23/18 16:37 01/23/18 19:00 01/23/18 19:50 Temperature Pulse Rate 100 H 98 H Respiratory Rate 18 20 Blood Pressure Pulse Oximetry 95 01/23/18 19:51 01/23/18 20:00 01/24/18 00:00 Temperature 99.0 F 98.8 F Pulse Rate 104 H 92 H Respiratory Rate 20 17 Blood Pressure 160/87 H 136/77 Pulse Oximetry 96 92 L 92 L 01/24/18 04:00 01/24/18 04:27 01/24/18 07:00 Temperature 98.0 F Pulse Rate 96 H 90 Respiratory Rate 20 18 Blood Pressure 161/86 H Pulse Oximetry 96 94 L 01/24/18 08:00 01/24/18 09:00 01/24/18 10:14 Temperature 97.9 F Pulse Rate 81 87 Respiratory Rate 35 H 33 H Blood Pressure 126/89 Pulse Oximetry 92 L Intake & Output 01/23/18 01/24/18 01/24/18 18:59 06:59 18:59 Intake Total 990 / 990 510 / 510 Output Total 850 / 850 Balance 140 / 140 510 / 510 Weight 95.254 kg Intake: IV 510 / 510 510 / 510 MVI-12 Inj 10 ML In NS Inj 500 510 / 510 510 / 510 ML @ 125 mls/hr IV.SIG Q24H NANI Rx#:[id number] Oral 480 / 480 Intake (Blood Product) Amt 0 / 0 Plt Pheresis B Leukoreduced 0 / 0 Unit [id number] Output: Urine 850 / 850 Other: # Voids 3 <Brennan Yusuf - Last Filed: 01/24/18 11:14> Assessment and Plan - Assessment (1) Acute subdural hematoma Code(s): S06.5X9A - Traumatic subdural hemorrhage with loss of consciousness of unspecified duration, initial encounter Status: Acute (2) Alcohol abuse Code(s): F10.10 - Alcohol abuse, uncomplicated Status: Acute (3) Fracture, ribs Code(s): S22.39XA - Fracture of one rib, unspecified side, initial encounter for closed fracture Status: Acute (4) Hemopneumothorax on left Code(s): J94.2 - Hemothorax Status: Acute (5) Pneumothorax Code(s): J93.9 - Pneumothorax, unspecified Status: Acute (6) Thrombocytopenia Code(s): D69.6 - Thrombocytopenia, unspecified Status: Acute - Plan A: 52-year-old gentleman with a small left parietal acute subdural hemorrhage after a fall with no focal neurologic deficits or any significant mass-effect or midline shift. Given his history of alcohol abuse/hepatitis and mild thrombocytopenia, he is at increased risk for further bleeding and needs to be monitored closely in the surgical intensive care unit. Follow up CT head reveals the SDH has not increased in size. P: Continue with neuro checks Keppra for early seizure prophylaxis Protonix for gastrointestinal stress ulcer prophylaxis Mechanical DVT prophylaxis. Pt got platelet transfusion for thrombocytopenia today. <Benny aCrl - Last Filed: 01/23/18 18:48> - Assessment (1) Alcohol abuse Code(s): F10.10 - Alcohol abuse, uncomplicated Status: Acute (2) Thrombocytopenia Code(s): D69.6 - Thrombocytopenia, unspecified Status: Acute (3) Acute subdural hematoma Code(s): S06.5X9A - Traumatic subdural hemorrhage with loss of consciousness of unspecified duration, initial encounter Status: Acute - Attending Attestation The exam, history, and the medical decision-making described in the above note were completed with the assistance of the mid-level provider. I reviewed and agree with the findings presented. I attest that I had a [id number] encounter with the patient on the same day, and personally performed and documented my assessment and findings in the medical record. Transfuse 1 unit of platelets for thrombocytopenia and continue with mechanical DVT prophylaxis and observation. Monitor closely for DTs since he is high risk for alcohol withdrawal. <Brennan Yusuf - Last Filed: 01/24/18 11:14>
[2018-01-24] MEDS: diazePAM 2 MG Tablet PO SCH ×2 (01:28→10:30)
[2018-01-24] MEDS: Lidocaine 5% Patch T-DERMAL SCH (01:40)
[2018-01-24] MEDS: SODIUM CHLOR IV.SIG SCH (01:40)
[2018-01-24] MEDS: MULTIVITAMIN IV.SIG SCH (01:40)
[2018-01-24] MEDS: Chlorhexidine Gluconate 2% 1 Pack (2 Cloths) TOPICAL SCH (04:31)
[2018-01-24 04:44] LABS: Baso % (Auto) 0.5 % (0.0-2.0); Eos # (Auto) 0.1 th/mm3 (0.0-0.4); Eos % (Auto) 1.7 % (0.0-4.0); Hematocrit 33.5 % (39.0-51.0); Hemoglobin 11.9 gm/dL (13.0-17.0); Lymph # (Auto) 0.8 th/mm3 (1.0-4.8); Lymph % (Auto) 23.1 % (9.0-44.0); Mean Corpuscular HGB Conc 35.3 % (32.0-36.0); Mean Corpuscular Hemoglobin 34.6 pg (27.0-34.0); Mean Corpuscular Volume 97.9 fL (80.0-100.0); Mean Platelet Volume 7.7 fL (7.0-11.0); Mono # (Auto) 0.3 th/mm3 (0.0-0.9); Mono % (Auto) 9.6 % (0.0-8.0); Neut # (Auto) 2.3 th/mm3 (1.8-7.7); Neut % (Auto) 65.1 % (16.0-70.0); Platelet Count 86 th/mm3 (150-450); Red Blood Count 3.43 mil/mm3 (4.50-5.90); White Blood Count 3.6 th/mm3 (4.0-11.0)
[2018-01-24 05:11] LABS: Alanine Aminotransferase 57 U/L (12-78); Albumin 2.9 g/dL (3.4-5.0); Anion Gap 7 meq/L (5-15); Aspartate Aminotransferase 47 U/L (15-37); Blood Urea Nitrogen 11 mg/dL (7-18); Calcium 8.2 mg/dL (8.5-10.1); Carbon Dioxide 30.1 meq/L (21.0-32.0); Chloride 96 meq/L (98-107); Glomerular Filtration Rate Greater Than 89 mL/min (>89); Glucose,Random 101 mg/dL (74-106); Potassium 3.8 meq/L (3.5-5.1); Sodium 133 meq/L (136-145)
[2018-01-24 05:14] LABS: Alkaline Phosphatase 72 U/L (45-117)
--- NOTE | 2018-01-24 05:26 | XR ---
EXAM DATE: 01/24/2018 4:51 AM EDT AGE/SEX: 52 years / Male INDICATIONS: Shortness of breath CLINICAL DATA: This is the patient's subsequent encounter. Patient reports that signs and symptoms h ave been present for 3 days and indicates a pain score of Nonresponsive. MEDICAL/SURGICAL HISTORY: . Hepatitis C None. COMPARISON: [facility] [place] 1[place] SING[place] AP, 01/23/2018. . FINDINGS: There is atelectasis and consolidation at the bases. This is stable. Left apical pneumothorax again s een. Cardiomegaly. CONCLUSION: Stable exam. Electronically signed by: Joel Romano MD 01/24/2018 5:25 AM EDT
[2018-01-24] MEDS: Ketorolac Inj 30 MG/ML (IVP) Vial IV.PUSH SCH ×3 (06:24→22:34)
[2018-01-24 08:08] LABS: Eosinophils 7 % (0-4); Lymphocytes 15 % (9-44); Monocytes 6 % (0-8); Platelet Morphology Normal (Normal)
[2018-01-24] MEDS: Morphine Inj 30 MG/30 ML PCA.VIAL PCA PRN (08:09)
--- NOTE | 2018-01-24 08:10 | P.PNNPSY ---
- Behavior Intact: Impulsive/agitated - Psychosocial Moderate: Psychosocial, Family/other adjustment, Self-esteem/confidence - Progress Notes/Response to Treatment Contents of Sessions: Adjustment, Level of consciousness Time with Patient: 30 minutes Premorbid Psychological Status: Premorbid Cognitive, Emotional and Behavioral Status: Tenuous. The patient has high school years of education and a sporadic work history prior to this injury. The patient has prior psychiatric difficulties, as described above. Substance abuse history is significant, and he is in recovery from opioid addiction. Behavioral Reactions of Patient and Family/Support System: Tenuous. The patients family is experiencing ongoing issues of adjustment given the nature of the injury, and this aspect of recovery will require ongoing monitoring. Emotional/Behavioral Status of Patient and Family/Support System: Tenuous. Pertinent issues, if appropriate to this patients clinical care, are described in detail above. Maximizing Acute Care Outcome: It is recommended that the patient be monitored for emergent behavioral impulsivity as the medical condition evolves. This patients neuropathological challenges may limit rehabilitation potential going forward, and these challenges will require specialized therapeutic skills to maximize outcome. At this point in the recovery process, the patient does have cognitive capacity as the patient is able to understand a situation and its likely consequences, and he is able to manipulate information rationally. Cognitive capacity will be assessed throughout the recovery process. Anticipated Problems: Ongoing areas of concern will include behavioral impulsivity, lack of insight and judgment, which is expected to improve with time and treatment. Presently , the patient is acutely ill. Treatment Plan: This clinician will continue to follow with you throughout the course of this patients rehabilitation treatment, and I will be available to meet with the patients family/support system to facilitate their understanding and the ongoing care of their family member. The goals of neuropsychological intervention shall be both educational and supportive to the family/support system as is deemed clinically appropriate. [place] COG Scale: Level Disinhibition Score: 17.50 Aggression Score: 14.00 Lability Score: 18.66 Agitated Behavior Total Score: 17 Impression: The patient is 52 year old male s/p complicated mild TBI 2T fall on 01/21/2018. Progress Note Narrative: PTD 3. The patient is medically stable, somewhat manipulative about his pain medication regimen. His agitation/restlessness is manageable, with recent ABS of 17 (17.5,14,18.7). He is [place] at least. I will follow. - Diagnosis (1) Mild neurocognitive disorder due to traumatic brain injury Status: Acute
[2018-01-24] MEDS: levETIRAcetam 500 MG Tablet PO SCH ×2 (08:35→22:36)
[2018-01-24] MEDS: Docusate Sodium 100 MG Capsule PO SCH ×2 (08:35→22:36)
[2018-01-24] MEDS ORDERED: Enoxaparin Inj 40 MG/0.4 ML Syringe SQ SCH (11:00)
--- NOTE | 2018-01-24 15:32 | P.PNCC ---
Subjective Brief History: 52-year-old male fell off about 8 foot roof. Positive loss of consciousness was transferred to our institution as priority 2 trauma alert and worked up. Patient is found to have subdural hematoma without midline shift as well as serial left rib fractures Patient remembers the accident and states that he drank heavily before lunch and is also on about 130 mg of methadone twice a day for the last 10 years which clearly does not help if you are on the roof. Patient was resuscitated according to trauma principles worked up fully with diagnostic and laboratory workup Final injuries detected Left subdural hematoma without midline shift Left seventh eighth ninth and 10th rib fracture with small hemothorax and pulmonary contusion 24 Hour Review/Hospital Course: 01/23/2018 Patient is stable for last 24 hours Neurologic patient is fully intact with bilateral motoric full range of motion Normal deep tendon reflexes no pathologic reflexes Pupils equal reactive Hemodynamically patient stable Good bilateral breath sounds with some rhonchi and good pulmonary inspiratory effort however patient requires large amount of pain medication to get there Patient had a period of desaturation last night when he was taken off morphine and stayed only on methadone and intermittent morphine which he did not tolerate for he was splinting chest and starting to develop atelectasis 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 as well as Toradol IV Patient seeking more methadone but both of these will not work and cancel each other out Abdomen soft active bowel sounds Diet well-tolerated 01/24/2018 Patient's pain well controlled he is awake alert and oriented Wants to go back on methadone and will be switched to the same Bilateral good breath sounds good pulmonary effort and patient has been switched from the high flow oxygen to nasal cannula with saturations in 98% range Patient awaiting bed on the floor for last 48 hours Therefore critical care time not discharged Objective Vital Signs / I&O: Vital Signs 01/23/18 16:00 01/23/18 16:37 01/23/18 19:00 Temperature 98.9 F Pulse Rate 95 H 100 H Respiratory Rate 20 18 Blood Pressure 141/76 H Pulse Oximetry 98 95 01/23/18 19:50 01/23/18 19:51 01/23/18 20:00 Temperature 99.0 F Pulse Rate 98 H 104 H Respiratory Rate 20 20 Blood Pressure 160/87 H Pulse Oximetry 96 92 L 01/24/18 00:00 01/24/18 04:00 01/24/18 04:27 Temperature 98.8 F 98.0 F Pulse Rate 92 H 96 H 90 Respiratory Rate 17 20 18 Blood Pressure 136/77 161/86 H Pulse Oximetry 92 L 96 01/24/18 07:00 01/24/18 08:00 01/24/18 09:00 Temperature 97.9 F Pulse Rate 81 87 Respiratory Rate 35 H Blood Pressure 126/89 Pulse Oximetry 94 L 92 L 01/24/18 10:14 01/24/18 12:00 01/24/18 13:44 Temperature 98.9 F Pulse Rate 85 85 Respiratory Rate 33 H 20 20 Blood Pressure 130/77 Pulse Oximetry 92 L 01/24/18 14:41 Temperature Pulse Rate Respiratory Rate 13 Blood Pressure Pulse Oximetry Intake & Output 01/23/18 01/24/18 01/24/18 18:59 06:59 18:59 Intake Total 990 / 990 510 / 510 Output Total 850 / 850 Balance 140 / 140 510 / 510 Weight 95.254 kg Intake: IV 510 / 510 510 / 510 MVI-12 Inj 10 ML In NS Inj 500 510 / 510 510 / 510 ML @ 125 mls/hr IV.SIG Q24H NANI Rx#:[id number] Oral 480 / 480 Intake (Blood Product) Amt 0 / 0 Plt Pheresis B Leukoreduced 0 / 0 Unit [id number] Output: Urine 850 / 850 Other: # Voids 3 Result Diagrams: 01/24/18 03:34 01/24/18 03:34 Imaging: Impressions Chest X-Ray 01/24/18 06:00 CONCLUSION: Stable exam. Disinhibition Score: 17.50 Aggression Score: 14.00 Lability Score: 18.66 Agitated Behavior Total Score: 17 - Exam PATTERN MOLDER: Awake alert oriented pain well controlled
[2018-01-24] MEDS: Methadone 10 MG Tablet PO SCH (16:05)
--- NOTE | 2018-01-24 17:19 | P.PNNS ---
Subjective Interval history: Pt awake and alert. State he is feeling better today. He wants to go back on his Methadone. He complains of left rib pain. <Benny Carl - Last Filed: 01/24/18 17:14> Physical Exam Vital signs: Vital Signs 01/23/18 19:00 01/23/18 19:50 01/23/18 19:51 Temperature Pulse Rate 98 H Respiratory Rate 20 Blood Pressure Pulse Oximetry 95 96 01/23/18 20:00 01/24/18 00:00 01/24/18 04:00 Temperature 99.0 F 98.8 F 98.0 F Pulse Rate 104 H 92 H 96 H Respiratory Rate 20 17 20 Blood Pressure 160/87 H 136/77 161/86 H Pulse Oximetry 92 L 92 L 96 01/24/18 04:27 01/24/18 07:00 01/24/18 08:00 Temperature 97.9 F Pulse Rate 90 81 Respiratory Rate 18 35 H Blood Pressure 126/89 Pulse Oximetry 94 L 92 L 01/24/18 09:00 01/24/18 10:14 01/24/18 12:00 Temperature 98.9 F Pulse Rate 87 85 Respiratory Rate 33 H 20 Blood Pressure 130/77 Pulse Oximetry 92 L 01/24/18 13:44 01/24/18 14:41 01/24/18 16:00 Temperature 98.0 F Pulse Rate 85 68 Respiratory Rate 20 13 14 Blood Pressure 129/66 Pulse Oximetry 94 L 01/24/18 17:04 Temperature Pulse Rate 75 Respiratory Rate 18 Blood Pressure Pulse Oximetry Intake & Output 01/23/18 01/24/18 01/24/18 18:59 06:59 18:59 Intake Total 990 / 990 510 / 510 Output Total 850 / 850 Balance 140 / 140 510 / 510 Weight 95.254 kg Intake: IV 510 / 510 510 / 510 MVI-12 Inj 10 ML In NS Inj 500 510 / 510 510 / 510 ML @ 125 mls/hr IV.SIG Q24H NANI Rx#:[id number] Oral 480 / 480 Intake (Blood Product) Amt 0 / 0 Plt Pheresis B Leukoreduced 0 / 0 Unit [id number] Output: Urine 850 / 850 Other: # Voids 3 - Constitutional mild distress, average body habitus, cooperative - Routine HEENT Exam Head: Present: normocephalic. Absent: facial swelling Eye: Present: PERRL. Absent: conjunctival icterus - Routine Neck Exam Present: trachea midline - Routine Respiratory Exam Present: CTA bilaterally. Absent: respiratory distress, rhonchi, wheezes - Routine Cardiovascular Exam Present: RRR, S1, S2. Absent: murmur - Routine Abdominal Exam Present: soft, normoactive bowel sounds. Absent: distended - Routine Skin Exam Absent: cyanosis, erythema - Routine Neurological Exam Present: alert, oriented X3, moving all extremities (Limitation with getting oob secondary to his rib pain.). Absent: sensory deficit, motor deficit, altered mental status - Detailed Neurological Exam: Coma Scale Eye Opening: Spontaneous Verbal Response: Oriented Motor Response: Obey commands [place] Coma Scale Total: 15 - Routine Psychiatric Exam Present: normal thought process, cooperative, anxious (mild.) <Benny Carl - Last Filed: 01/24/18 17:14> Vital signs: Vital Signs 01/23/18 19:00 01/23/18 19:50 01/23/18 19:51 Temperature Pulse Rate 98 H Respiratory Rate 20 Blood Pressure Pulse Oximetry 95 96 01/23/18 20:00 01/24/18 00:00 01/24/18 04:00 Temperature 99.0 F 98.8 F 98.0 F Pulse Rate 104 H 92 H 96 H Respiratory Rate 20 17 20 Blood Pressure 160/87 H 136/77 161/86 H Pulse Oximetry 92 L 92 L 96 01/24/18 04:27 01/24/18 07:00 01/24/18 08:00 Temperature 97.9 F Pulse Rate 90 81 Respiratory Rate 18 35 H Blood Pressure 126/89 Pulse Oximetry 94 L 92 L 01/24/18 09:00 01/24/18 10:14 01/24/18 12:00 Temperature 98.9 F Pulse Rate 87 85 Respiratory Rate 33 H 20 Blood Pressure 130/77 Pulse Oximetry 92 L 01/24/18 13:44 01/24/18 14:41 01/24/18 16:00 Temperature 98.0 F Pulse Rate 85 68 Respiratory Rate 20 13 14 Blood Pressure 129/66 Pulse Oximetry 94 L 01/24/18 17:04 Temperature Pulse Rate 75 Respiratory Rate 18 Blood Pressure Pulse Oximetry Intake & Output 01/23/18 01/24/18 01/24/18 18:59 06:59 18:59 Intake Total 990 / 990 990 / 990 Output Total 850 / 850 400 / 400 Balance 140 / 140 590 / 590 Weight 95.254 kg Intake: IV 510 / 510 510 / 510 MVI-12 Inj 10 ML In NS Inj 500 510 / 510 510 / 510 ML @ 125 mls/hr IV.SIG Q24H NANI Rx#:[id number] Oral 480 / 480 480 / 480 Intake (Blood Product) Amt 0 / 0 Plt Pheresis B Leukoreduced 0 / 0 Unit [id number] Output: Urine 850 / 850 400 / 400 Other: # Voids 3 <Brennan Yusuf - Last Filed: 01/24/18 17:28> Assessment and Plan - Assessment (1) Acute subdural hematoma Code(s): S06.5X9A - Traumatic subdural hemorrhage with loss of consciousness of unspecified duration, initial encounter Status: Acute (2) Alcohol abuse Code(s): F10.10 - Alcohol abuse, uncomplicated Status: Acute (3) Fracture, ribs Code(s): S22.39XA - Fracture of one rib, unspecified side, initial encounter for closed fracture Status: Acute (4) Hemopneumothorax on left Code(s): J94.2 - Hemothorax Status: Acute (5) Pneumothorax Code(s): J93.9 - Pneumothorax, unspecified Status: Acute (6) Thrombocytopenia Code(s): D69.6 - Thrombocytopenia, unspecified Status: Acute - Plan A: 52-year-old gentleman with a small left parietal acute subdural hemorrhage after a fall with no focal neurologic deficits or any significant mass-effect or midline shift. Given his history of alcohol abuse/hepatitis and mild thrombocytopenia, he is at increased risk for further bleeding and needs to be monitored closely in the surgical intensive care unit. Follow up CT head reveals the SDH has not increased in size. Monitoring platelets. P: Continue with neuro checks Keppra for early seizure prophylaxis Protonix for gastrointestinal stress ulcer prophylaxis Mechanical DVT prophylaxis. Dr. Yusuf cleared to start Lovenox tomorrow. <Benny Carl - Last Filed: 01/24/18 17:14> - Assessment (1) Alcohol abuse Code(s): F10.10 - Alcohol abuse, uncomplicated Status: Acute (2) Thrombocytopenia Code(s): D69.6 - Thrombocytopenia, unspecified Status: Acute (3) Acute subdural hematoma Code(s): S06.5X9A - Traumatic subdural hemorrhage with loss of consciousness of unspecified duration, initial encounter Status: Acute - Attending Attestation The exam, history, and the medical decision-making described in the above note were completed with the assistance of the mid-level provider. I reviewed and agree with the findings presented. I attest that I had a [id number] encounter with the patient on the same day, and personally performed and documented my assessment and findings in the medical record. <Brennan Yusuf - Last Filed: 01/24/18 17:28>
[2018-01-25] MEDS: Lidocaine 5% Patch T-DERMAL SCH (00:22)
[2018-01-25] MEDS: MULTIVITAMIN IV.SIG SCH (00:22)
[2018-01-25] MEDS: SODIUM CHLOR IV.SIG SCH (00:22)
[2018-01-25] MEDS: Ketorolac Inj 30 MG/ML (IVP) Vial IV.PUSH SCH (05:45)
[2018-01-25] MEDS: Chlorhexidine Gluconate 2% 1 Pack (2 Cloths) TOPICAL SCH (05:46)
--- NOTE | 2018-01-25 08:28 | P.PNNPSY ---
- Behavior Intact: Impulsive/agitated - Cognitive Intact: Cognitive, Attention/concentration, Confused/orientation, Insight/ awareness, Judgment/problem solving, Memory - Progress Notes/Response to Treatment Contents of Sessions: Adjustment, Level of consciousness Time with Patient: 15 minutes Premorbid Psychological Status: Premorbid Cognitive, Emotional and Behavioral Status: Tenuous. The patient has high school years of education and a sporadic work history prior to this injury. The patient has prior psychiatric difficulties, as described above. Substance abuse history is significant, and he is in recovery from opioid addiction. Behavioral Reactions of Patient and Family/Support System: Tenuous. The patients family is experiencing ongoing issues of adjustment given the nature of the injury, and this aspect of recovery will require ongoing monitoring. Emotional/Behavioral Status of Patient and Family/Support System: Tenuous. Pertinent issues, if appropriate to this patients clinical care, are described in detail above. Maximizing Acute Care Outcome: It is recommended that the patient be monitored for emergent behavioral impulsivity as the medical condition evolves. This patients neuropathological challenges may limit rehabilitation potential going forward, and these challenges will require specialized therapeutic skills to maximize outcome. At this point in the recovery process, the patient does have cognitive capacity as the patient is able to understand a situation and its likely consequences, and he is able to manipulate information rationally. Cognitive capacity will be assessed throughout the recovery process. Anticipated Problems: Ongoing areas of concern will include behavioral impulsivity, lack of insight and judgment, which is expected to improve with time and treatment. Presently , the patient is acutely ill. Treatment Plan: This clinician will continue to follow with you throughout the course of this patients rehabilitation treatment, and I will be available to meet with the patients family/support system to facilitate their understanding and the ongoing care of their family member. The goals of neuropsychological intervention shall be both educational and supportive to the family/support system as is deemed clinically appropriate. Disinhibition Score: 17.50 Aggression Score: 14.00 Lability Score: 18.66 Agitated Behavior Total Score: 17 Impression: The patient is 52 year old male s/p complicated mild TBI 2T fall on 01/21/2018. Progress Note Narrative: PTD 4. The patient is transferred to the floor. No significant issues of agitation/restlessness. Recent ABS is 17 (17.5,14,18.7). He is [place] , perhaps VII. He is ready for discharge. I will follow. - Diagnosis (1) Mild neurocognitive disorder due to traumatic brain injury Status: Acute
[2018-01-25] MEDS ORDERED: Enoxaparin Inj 40 MG/0.4 ML Syringe SQ SCH (09:00)
[2018-01-25] MEDS: Methadone 10 MG Tablet PO SCH (09:48)
[2018-01-25] MEDS: Docusate Sodium 100 MG Capsule PO SCH (09:49)
[2018-01-25] MEDS: levETIRAcetam 500 MG Tablet PO SCH (09:49)
--- NOTE | 2018-01-25 12:24 | P.PNNS ---
Subjective Interval history: Pt awake and alert. No headaches, nausea, or vomiting. Pt very happy he is going home today. <Benny Carl - Last Filed: 01/25/18 12:20> Physical Exam Vital signs: Vital Signs 01/24/18 13:44 01/24/18 14:41 01/24/18 16:00 Temperature 98.0 F Pulse Rate 85 68 Respiratory Rate 20 13 14 Blood Pressure 129/66 Pulse Oximetry 94 L 01/24/18 17:04 01/24/18 17:54 01/24/18 20:00 Temperature 97.7 F 97.9 F Pulse Rate 75 79 84 Respiratory Rate 18 18 18 Blood Pressure 145/81 H 138/68 Pulse Oximetry 98 95 01/25/18 00:00 01/25/18 04:00 01/25/18 07:43 Temperature 98.1 F 97.9 F 98.0 F Pulse Rate 76 73 63 Respiratory Rate 18 18 16 Blood Pressure 144/82 H 146/75 H 154/73 H Pulse Oximetry 76 L 95 93 L 01/25/18 08:35 Temperature Pulse Rate Respiratory Rate Blood Pressure Pulse Oximetry 93 L Intake & Output 01/24/18 01/25/18 01/25/18 18:59 06:59 18:59 Intake Total 990 / 990 Output Total 400 / 400 600 / 600 Balance 590 / 590 -600 / -600 Weight 92.5 kg Intake: IV 510 / 510 MVI-12 Inj 10 ML In NS Inj 500 510 / 510 ML @ 125 mls/hr IV.SIG Q24H [facility] Rx#:[id number] Oral 480 / 480 Output: Urine 400 / 400 600 / 600 - Constitutional no acute distress, thin - Routine HEENT Exam Head: Present: normocephalic, atraumatic Eye: Present: PERRL. Absent: conjunctival icterus - Routine Neck Exam Present: trachea midline - Routine Respiratory Exam Present: CTA bilaterally. Absent: respiratory distress, rhonchi, wheezes - Routine Cardiovascular Exam Present: RRR, S1, S2. Absent: murmur - Routine Abdominal Exam Present: soft, normoactive bowel sounds. Absent: tenderness, firm - Routine Skin Exam Present: cyanosis, erythema - Routine Neurological Exam Present: alert, oriented X3, moving all extremities, normal speech. Absent: sensory deficit, motor deficit - Detailed Neurological Exam: Coma Scale Eye Opening: Spontaneous Verbal Response: Oriented Motor Response: Obey commands [place] Coma Scale Total: 15 - Routine Psychiatric Exam Present: normal affect, cooperative, good insight, good judgment. Absent: agitated <Benny Carl - Last Filed: 01/25/18 12:20> Vital signs: Vital Signs 01/24/18 13:44 01/24/18 14:41 01/24/18 16:00 Temperature 98.0 F Pulse Rate 85 68 Respiratory Rate 20 13 14 Blood Pressure 129/66 Pulse Oximetry 94 L 01/24/18 17:04 01/24/18 17:54 01/24/18 20:00 Temperature 97.7 F 97.9 F Pulse Rate 75 79 84 Respiratory Rate 18 18 18 Blood Pressure 145/81 H 138/68 Pulse Oximetry 98 95 01/25/18 00:00 01/25/18 04:00 01/25/18 07:43 Temperature 98.1 F 97.9 F 98.0 F Pulse Rate 76 73 63 Respiratory Rate 18 18 16 Blood Pressure 144/82 H 146/75 H 154/73 H Pulse Oximetry 76 L 95 93 L 01/25/18 08:35 01/25/18 12:00 Temperature 97.5 F L Pulse Rate 83 Respiratory Rate 17 Blood Pressure 157/84 H Pulse Oximetry 93 L 94 L Intake & Output 01/24/18 01/25/18 01/25/18 18:59 06:59 18:59 Intake Total 990 / 990 Output Total 400 / 400 600 / 600 Balance 590 / 590 -600 / -600 Weight 92.5 kg Intake: IV 510 / 510 MVI-12 Inj 10 ML In NS Inj 500 510 / 510 ML @ 125 mls/hr IV.SIG Q24H [facility] Rx#:[id number] Oral 480 / 480 Output: Urine 400 / 400 600 / 600 <Brennan Yusuf - Last Filed: 01/25/18 12:51> Assessment and Plan - Assessment (1) Acute subdural hematoma Code(s): S06.5X9A - Traumatic subdural hemorrhage with loss of consciousness of unspecified duration, initial encounter Status: Acute (2) Alcohol abuse Code(s): F10.10 - Alcohol abuse, uncomplicated Status: Acute (3) Fracture, ribs Code(s): S22.39XA - Fracture of one rib, unspecified side, initial encounter for closed fracture Status: Acute (4) Hemopneumothorax on left Code(s): J94.2 - Hemothorax Status: Acute (5) Pneumothorax Code(s): J93.9 - Pneumothorax, unspecified Status: Acute (6) Thrombocytopenia Code(s): D69.6 - Thrombocytopenia, unspecified Status: Acute - Plan A: 52-year-old gentleman with a small left parietal acute subdural hemorrhage after a fall with no focal neurologic deficits or any significant mass-effect or midline shift. Given his history of alcohol abuse/hepatitis and mild thrombocytopenia, he is at increased risk for further bleeding and needs to be monitored closely in the surgical intensive care unit. Follow up CT head reveals the SDH has not increased in size. Monitoring platelets. P: Discharge pt home Follow up in 2 weeks counselled pt about alcohol cessation Counselled pt about no contact activity or activity that places at another head injury for 4 months. <Benny Carl - Last Filed: 01/25/18 12:20> - Assessment (1) Alcohol abuse Code(s): F10.10 - Alcohol abuse, uncomplicated Status: Acute (2) Thrombocytopenia Code(s): D69.6 - Thrombocytopenia, unspecified Status: Acute (3) Acute subdural hematoma Code(s): S06.5X9A - Traumatic subdural hemorrhage with loss of consciousness of unspecified duration, initial encounter Status: Acute - Attending Attestation The exam, history, and the medical decision-making described in the above note were completed with the assistance of the mid-level provider. I reviewed and agree with the findings presented. I attest that I had a [id number] encounter with the patient on the same day, and personally performed and documented my assessment and findings in the medical record. <Brennan Yusuf - Last Filed: 01/25/18 12:51>
--- NOTE | 2018-01-25 12:40 | P.DS ---
Date of admission: 01/21/18 16:35 Primary care physician: No Primary Care Physician Brief History from admission: S/P Fall DS: Diagnosis - Discharge Diagnosis (1) Acute subdural hematoma Status: Acute (2) Fracture, ribs Status: Acute (3) Pneumothorax Status: Acute (4) Hemopneumothorax on left Status: Acute (5) Alcohol abuse Status: Acute (6) Thrombocytopenia Status: Acute DS: Summary Hospital Course: Fell approx 8 feet off a ladder striking trees before hitting the ground. No LOC. ETOH = 84. INJURIES: LEFT SDH LEFT rib fxs (multiple) LEFT SERGEY/apical PTX LEFT pulmonary contusion PMHx: Tobacco use, Hep C, ETOH abuse, opioid abuse. LEFT SDH Neurosurgery consulted, follow-up as outpatient in 2 weeks Supportive care ETOH cessation Postconcussive education LEFT rib fxs, LEFT SERGEY/apical PTX, LEFT pulmonary contusion Supportive care Pulmonary toileting- continue IS use at home CXR shows no PTX Pain control Bowel regimen OOB- PT and OT ordered Follow-up with PCP in 1 week. F/U with Methadone clinic for pain control. Plan of care discussed with patient at bedside. Collaborating Trauma surgeon agrees with plan. Case management consulted to assist with discharge planning. Patient is clear from trauma surgery standpoint to safely discharge home. RW ordered. - Time Spent with Patient Total time spent providing and/or coordinating discharge services: Greater than 30 minutes Exam Vital signs: Vital Signs 01/24/18 13:44 01/24/18 14:41 01/24/18 16:00 Temperature 98.0 F Pulse Rate 85 68 Respiratory Rate 20 13 14 Blood Pressure 129/66 Pulse Oximetry 94 L 01/24/18 17:04 01/24/18 17:54 01/24/18 20:00 Temperature 97.7 F 97.9 F Pulse Rate 75 79 84 Respiratory Rate 18 18 18 Blood Pressure 145/81 H 138/68 Pulse Oximetry 98 95 01/25/18 00:00 01/25/18 04:00 01/25/18 07:43 Temperature 98.1 F 97.9 F 98.0 F Pulse Rate 76 73 63 Respiratory Rate 18 18 16 Blood Pressure 144/82 H 146/75 H 154/73 H Pulse Oximetry 76 L 95 93 L 01/25/18 08:35 01/25/18 12:00 Temperature 97.5 F L Pulse Rate 83 Respiratory Rate 17 Blood Pressure 157/84 H Pulse Oximetry 93 L 94 L Intake & Output 01/24/18 01/25/18 01/25/18 18:59 06:59 18:59 Intake Total 990 / 990 Output Total 400 / 400 600 / 600 Balance 590 / 590 -600 / -600 Weight 92.5 kg Intake: IV 510 / 510 MVI-12 Inj 10 ML In NS Inj 500 510 / 510 ML @ 125 mls/hr IV.SIG Q24H [facility] Rx#:[id number] Oral 480 / 480 Output: Urine 400 / 400 600 / 600 Narrative: GENERAL: 52-year-old well developed male sitting up in bed in no acute distress. SKIN: Warm and dry. HEAD: Normocephalic. EYES: Pupils equal and round. No scleral icterus. ENT: No nasal bleeding or discharge. Mucous membranes pink and moist. Poor dentition. NECK: Trachea midline. No JVD. CARDIOVASCULAR: Regular rate and rhythm. RESPIRATORY: No accessory muscle use. Lungs clear to auscultation. Breath sounds equal bilaterally. GASTROINTESTINAL: Abdomen soft, non-tender, nondistended. + BS. MUSCULOSKELETAL: Extremities without cyanosis, or edema. MAEW, + perfused NEUROLOGICAL: Awake and alert. Normal speech. Results Procedures completed during hospitalization: NA - Impressions ITS Impressions Abdomen/Pelvis CT 01/21/18 14:23 CONCLUSION: 1. Multiple lower left-sided rib fractures with tiny left pneumothorax and small left hemopneumothorax. There is some air in the left lower chest wall posteriorly. 2. No acute traumatic injury identified in the upper abdomen viscera. No free fluid or free air within the abdomen. 3. Moderate degenerative change in the lower lumbar spine. Cervical Spine CT 01/21/18 14:23 CONCLUSION: No cervical spine fracture or spondylolisthesis. No canal stenosis. Tiny left pneumothorax and left pleural effusion. Chest CT 01/21/18 14:23 CONCLUSION: 1. Multiple lower left rib fractures with tiny left pneumothorax and small left hemopneumothorax. 2. Dependent atelectasis in the lungs. 3. Mild fatty liver. Lumbar Spine CT 01/21/18 14:23 CONCLUSION: 1. No acute findings in the lumbar spine. Pelvis X-Ray 01/21/18 14:23 CONCLUSION: Negative examination. Thoracic Spine CT 01/21/18 14:23 CONCLUSION: 1. No acute findings in the thoracic vertebral bodies. Head CT 01/22/18 00:00 CONCLUSION: 1. Left subdural hematoma not significantly changed. . Chest X-Ray 01/24/18 06:00 CONCLUSION: Stable exam. Discharge Plan - Discharge Disposition Patient Disposition: 01 Discharge Home - Discharge Condition Condition: Stable - Discharge Order Discharge Orders: Discharge Order (Routine); Ordered 01/25/18 Ordered By: Sheri Santiago - Physicians Team Primary Care Provider: Primary Care Daylin Garcia Attending Provider: Angel Barnes Other Providers: Gary Ruiz MD ; Angel Barnes MD ; Systems, [employer] [facility] ; Maciel Jimenes MD ; Estephania Fatima ARNP ; Dragan Guy MD ; Nina Neely MD ; Edith Ott MD ; Sheri Santiago ARNP ; Greyson Beaver, PhD ; Brennan Yusuf MD ; Caity Chun MD
--- NOTE | 2018-01-25 16:17 | P.CONREH ---
History of Present Illness Service: Physical Medicine and Rehabilitaiton Consult date: 01/25/18 [facility] Consult[facility] Primary Care Provider: No Primary Care Physician Family Provider: No Primary Care Physician History of Present Illness: Sam Munoz is a 52 year old right hand dominant male admitted to [facility] 01/21/18 after falling off a roof approximately 8 feet. Positive loss of consciousness was noted. Head CT 01/21/18 showed left subdural hematoma in the parietal area 8 mm thickness with no mass-effect or shift. Follow-up head CT 01/22/18 showed no change in subdural hematoma. Associated injuries include left rib fractures 12/23/02/25, left hemothorax, left pneumothorax and pulmonary contusion. Nonsurgical nonsurgical management of injuries and supportive care were provided. Review of Systems Constitutional: Denies fatigue Eyes: Denies double vision Ears, Nose, Mouth, and Throat: Denies abnormal hearing, Denies sore throat Cardiovascular: Reports chest pain (in the area of rib fractures; no substrenal pain) Respiratory: Denies cough, Denies shortness of breath Gastrointestinal: Denies abdominal pain, Denies incontinent of stools Genitourinary: Denies urinary incontinence Musculoskeletal: Reports body aches, Denies muscle weakness, Denies numbness, Denies radiating pain into limb Skin/Breast: Denies rash Neurologic: Denies abnormal hearing, Denies localized weakness, Denies loss of vision Psychiatric: Denies difficulty concentrating, Denies memory loss Hematologic/Lymphatic: Reports other (Multiple bruises from injury), Denies easy bleeding Allergic/Immunologic: Denies wheezing PMFSH - History History Provided By: Patient - Medical History Medical History: Medical History (Last Reviewed 01/25/18 @ 09:04 by Katia Cardona) Hepatitis C - Surgical History Surgical History: Surgical History (Last Reviewed 01/25/18 @ 09:04 by Katia Cardona) No history of previous surgery - Tobacco History Second Hand Smoke Exposure: Yes Tobacco Use In Past 30 Days: Yes Smoking Status: Current every day smoker Tobacco Type: Cigarettes - Alcohol History How Often Do You Have a Drink Containing Alcohol: 4 or more times a week - Substance Use History Substance History: No History of Abuse - Travel History Recent Travel in the [facility] Within the Last 8 Weeks: No Recent Travel Out of the Country Within the Last 8 Weeks: No - Immunization History Tetanus Immunization: >5 Years Hx Influenza Vaccine This Season: No Medications and Allergies Allergies Allergy/AdvReac Type Severity Reaction Status Date / Time No Known Allergies Allergy Verified 01/21/18 14:35 Home Medications Medication Instructions Recorded Confirmed Type methadone 01/21/18 History Exam - Physical Examination Vital Signs / I&O: Vital Signs 01/24/18 17:04 01/24/18 17:54 01/24/18 20:00 Temperature 97.7 F 97.9 F Pulse Rate 75 79 84 Respiratory Rate 18 18 Blood Pressure 145/81 H 138/68 Pulse Oximetry 98 95 01/25/18 00:00 01/25/18 04:00 01/25/18 07:43 Temperature 98.1 F 97.9 F 98.0 F Pulse Rate 76 73 63 Respiratory Rate 18 16 Blood Pressure 144/82 H 146/75 H 154/73 H Pulse Oximetry 76 L 95 93 L 01/25/18 08:35 01/25/18 12:00 Temperature 97.5 F L Pulse Rate 83 Respiratory Rate 17 Blood Pressure 157/84 H Pulse Oximetry 93 L 94 L Intake & Output 01/24/18 01/25/18 01/25/18 18:59 06:59 18:59 Intake Total 990 / 990 Output Total 400 / 400 600 / 600 Balance 590 / 590 -600 / -600 Weight 92.5 kg Intake: IV 510 / 510 MVI-12 Inj 10 ML In NS Inj 500 510 / 510 ML @ 125 mls/hr IV.SIG Q24H [facility] Rx#:[id number] Oral 480 / 480 Output: Urine 400 / 400 600 / 600 Intake & Output 01/23/18 01/24/18 01/25/18 01/26/18 06:59 06:59 06:59 06:59 Intake Total 420 / 420 990 / 990 990 / 990 Output Total 200 / 200 850 / 850 1000 / 1000 Balance 220 / 220 140 / 140 -10 / -10 Weight 95.254 kg 95.254 kg 92.5 kg General: No acute distress, Other (Patient sitting on the edge of bed getting dressed) Respiratory: Lungs CTA, Non-labored respirations, BS equal (Decreased left base but clear) Gastrointestinal: Positive bowel sounds, Non-distended, Non-tender Cardiovascular: Normal rate, No edema, Regular rhythm Musculoskeletal: ROM (Within functional limited) Psychiatric: Cooperative, Appropriate mood & affect - Neurologic Orientation: oriented to: Self, Place, Time, Situation Neurologic: Cranial nerves (Intact 2-12 grossly), Speech (Clear) Motor: Right Upper Extremity (5/5), Left Upper Extremity (5/5), Right Lower Extremity (5/5), Left Lower Extremity (5/5) DTRs: Normal Clonus: Negative Results - Labs CBC & Chem 7: 01/24/18 03:34 01/24/18 03:34 Assessment and Plan (1) Acute subdural hematoma Status: Acute Code(s): S06.5X9A - Traumatic subdural hemorrhage with loss of consciousness of unspecified duration, initial encounter (2) Fracture, ribs Status: Acute Code(s): S22.39XA - Fracture of one rib, unspecified side, initial encounter for closed fracture (3) Pneumothorax Status: Acute Code(s): J93.9 - Pneumothorax, unspecified (4) Hemopneumothorax on left Status: Acute Code(s): J94.2 - Hemothorax - Plan Assessment: 1. Fall from roof with left subdural hematoma, left rib fractures 12/23/02/25, left hemopneumothorax and left pulmonary contusion 2. History of tobacco/alcohol/opiate abuse: Patient reports that he is maintained on methadone 3. Hepatitis C Recommendations: 1. Patient has progressed well with mobility is now independent for transfers and gait 250 feet with no device. Patient is encouraged to continue with daily ambulation and is agreeable to this 2. Continue with pulmonary toilet including inspiratory spirometry at discharge 3. Occupational therapy has addressed ADLs and is now set up. Patient does not anticipate any difficulty with independence with self-care ADLs at discharge 4. Patient feels his cognition is close to baseline. He can follow-up in the clinic if deficits are identified once he returns home 5. Avoid activities that could place patient at risk for recurrent brain injury 6. Will follow as needed in the outpatient clinic Thank you for this consult
== END 2018-01-25 12:47 | disposition home or self-care (01) ==
LOC: NEPE 14:09 → NEDA 16:35 → N03 21:10 → N05 01-24 17:44
PROVIDERS: ADMIT Surgery; ATTEND Surgery